=== PATIENT | male | born 1950 | race Caucasian/White ===

== ENCOUNTER 2022-01-13 19:26 | Outpatient (CLI) | payer MEDICARE, BC, SELFPAY | END 2022-01-13 19:27 | disposition home or self-care (01) | LOC: AMB 02-11 15:30 | PROVIDERS: PCP Physician Assistant; Visit Provider Family Medicine | DX: F91.9 Conduct disorder, unspecified (principal) ==

== ENCOUNTER 2022-01-13 19:49 | Emergency (ER) | payer MEDICARE, BC, SELFPAY ==
[2022-01-13 19:59] VITALS: BP 148/73; PULSE 71; RESP 20; TEMP 36.2; O2SAT 96; BMI 26.5
--- NOTE | 2022-01-13 20:19 | CRLHL7_ITS ---
For Patients: As a result of the Century Cures Act, medical imaging exams and procedure reports are released immediately into your electronic medical record. You may view this report before your referring provider. If you have questions, please contact your health care provider. INDICATION: Trauma, fall. TECHNIQUE: CT head without contrast. COMPARISON: None. FINDINGS: CSF spaces: Within normal limits for age. Brain parenchyma: The shi-white differentiation is normal. No sign of mass, hemorrhage, or midline shift. Atherosclerotic calcifications of the cavernous carotids and carotid siphons. Skull base and calvarium: Please refer to separate CT face for facial findings. Mastoid air cells are clear. No skull fractures. IMPRESSION: 1. No acute intracranial abnormality. 2. Please refer to separate CT face for facial findings. Please note that all CT scans at this facility use dose modulation, iterative reconstruction, and/or weight-based dosing when appropriate to reduce radiation dose to as low as reasonably achievable. Dictated by Mata Hollingsworth MD @ 01/13/2022 10:14:04 PM (Electronically Signed)
--- NOTE | 2022-01-13 20:19 | CRLHL7_ITS ---
For Patients: As a result of the Cures Act, medical imaging exams and procedure reports are released immediately into your electronic medical record. You may view this report before your referring provider. If you have questions, please contact your health care provider. INDICATION: Trauma. TECHNIQUE: CT cervical spine without contrast. COMPARISON: None. FINDINGS: Vertebrae: Alignment is normal. There are no fractures or suspicious bony lesions. Discs and facet joints: There are diffuse degenerative changes in the disc spaces and facet joints. Extraspinal findings: Paraspinous soft tissues are unremarkable. IMPRESSION: 1. No sign of acute injury. 2. Multilevel degenerative spondylosis. Please note that all CT scans at this facility use dose modulation, iterative reconstruction, and/or weight-based dosing when appropriate to reduce radiation dose to as low as reasonably achievable. Dictated by Mata Hollingsworth MD @ 01/13/2022 10:28:58 PM (Electronically Signed)
--- NOTE | 2022-01-13 20:19 | CRLHL7_ITS ---
For Patients: As a result of the Cures Act, medical imaging exams and procedure reports are released immediately into your electronic medical record. You may view this report before your referring provider. If you have questions, please contact your health care provider. INDICATION: Facial injury. TECHNIQUE: CT maxillofacial without contrast. COMPARISON: None. FINDINGS: Facial bones: No fractures or bone lesions. Specifically the nasal bones, temporomandibular joints, maxilla and mandible appear intact. Orbits and globes: Bilateral cataract extraction. Globes are intact. No sign of intraorbital hemorrhage or emphysema. Sinuses: No acute or significant findings. Soft tissues: Right malar contusion. IMPRESSION: 1. Right malar contusion. 2. No acute facial fracture. Please note that all CT scans at this facility use dose modulation, iterative reconstruction, and/or weight-based dosing when appropriate to reduce radiation dose to as low as reasonably achievable. Dictated by Mata Hollingsworth MD @ 01/13/2022 10:16:16 PM (Electronically Signed)
--- NOTE | 2022-01-13 20:20 | CRLHL7_ITS ---
For Patients: As a result of the Cures Act, medical imaging exams and procedure reports are released immediately into your electronic medical record. You may view this report before your referring provider. If you have questions, please contact your health care provider. Indication: Trauma. Technique: Bilateral knee radiograph 6 views. Comparison: None. Findings/Impression: Bones: Postsurgical changes of right knee arthroplasty. Mild tricompartmental osteoarthritis of the left knee. Heterotopic calcification about the right knee. Alignment is normal. No fractures or bone lesions. No sign of acute injury. Joint spaces: Unremarkable. Soft tissues: Bilateral popliteal arterial stents with associated calcifications. Dictated by Daniel Flor MD @ 01/13/2022 10:12:48 PM (Electronically Signed)
--- NOTE | 2022-01-13 20:20 | ED_ITS ---
HPI - General Adult General Time Seen by Provider: 20:21 Date Seen: 01/13/22 Chief complaint: Fall/Minor Trauma Stated complaint: Fell and hit head Time Seen by Provider: 01/13/22 20:11 Source: patient, family and old records reviewed Mode of arrival: ambulatory Limitations: no limitations History of Present Illness HPI narrative: 71-year-old male who comes in today with injuries after a fall. Patient tripped and fell at home, denies lightheadedness preceding denies, chest pain or palpitations. Admits to alcohol use today. Complains of knee pain. Related Data Home Medications Medication Instructions Recorded Confirmed aspirin 81 mg capsule 81 mg PO DAILY 01/13/22 01/13/22 hydrochlorothiazide 25 mg tablet 25 mg PO DAILY 01/13/22 01/13/22 nitroglycerin 0.4 mg sublingual 0.4 mg buccal Q5M PRN 01/13/22 01/13/22 tablet omeprazole 20 mg capsule,delayed 20 mg PO DAILY 01/13/22 01/13/22 release rosuvastatin 40 mg tablet 40 mg PO DAILY 01/13/22 01/13/22 vardenafil 20 mg tablet 20 mg PO DAILY PRN 01/13/22 01/13/22 Allergies Allergy/AdvReac Type Severity Reaction Status Date / Time No Known Drug Allergies Allergy Verified 01/13/22 20:05 Review of Systems Status of ROS: Reports: 10 or more systems reviewed and unremarkable except as noted in History and below [facility] Social History Smoking Status: Former smoker Do you use any of these nicotine containing products: None Second hand tobacco smoke exposure: No How often do you have a drink containing alcohol: 4 or more times a week How many standard drinks containing alcohol do you have on a typical day: 1 or 2 How often do you have six or more drinks on one occasion: Never AUDIT-C Alcohol total score: 4 Non-prescribed substance use: denies use Exam Narrative: Exam Narrative: General: Well-developed and well-nourished, no acute distress Head: Atraumatic and normocephalic Eyes: Pupils are equal reactive, extraocular motions intact, conjunctiva clear ENT: External nose and ears are normal, posterior pharynx without erythema or exudate. 8 mm intraoral laceration of the right upper lip, no loose teeth. Neck: No midline cervical tenderness, full spontaneous range of motion the neck, trachea midline, no adenopathy Heart: Regular rate and rhythm no murmurs or thrills Lungs: Clear to auscultation bilaterally without wheezes or crackles Abdomen: Soft, nontender, nondistended with active bowel sounds Musculoskeletal: Bilateral knee abrasions with no effusions Neurologic: Awake, alert, and oriented x3, no gross focal neurologic deficits, cranial nerves intact as tested Psych: Mood and affect are appropriate Skin: No rashes Const: Vital Signs, click to edit/add: Vital Signs - 24 hr 01/13/22 19:59 Temperature 97.2 F L Pulse Rate [Left P ulse Oximeter] 71 Respiratory Rate 20 Blood Pressure [Le ft Upper Arm] 148/73 H Pulse Oximetry 96 Oxygen Delivery Me thod Room Air Documenting provider has reviewed patient's vital signs: yes Course Course Hospital Course: Patient seen examined, prior records are reviewed. Patient presents with a trip and fall today, he has an intraoral laceration of the upper lip with the edges well apposed not through and through, no repair needed. No loose teeth. Patient is intoxicated. Due to intoxication, CT scan of the head and face ordered, as well as cervical although no midline cervical tenderness and full spontaneous range of motion the neck. Also x-rays knees bilaterally but ambulated to the department, fracture unlikely. If scans and x-rays are negative, patient is stable for discharge. Reevaluation(s) Reevaluation #1: CT scan of the head personally reviewed and interpreted by me does not demonstrate any acute fractures. CT scan of the face does not demonstrate any acute fractures. X-rays knees bilaterally do not appear to show acute fractures. Radiology interpretation is pending. Cervical spine CT interpretation pending as well. If these are negative, patient can be discharged home with outpatient follow-up. Reevaluation #2: CT scan interpretation of the head and face negative, cervical is pending but patient clinically has no cervical fracture, knee x-rays negative. Patient stable for discharge. Ambulating in the department without difficulty. Time: 22:18 Vital Signs Vital signs: Initial Vital Signs Temperature 97.2 F L 01/13/22 19:59 Temperature Source Temporal Artery Scan 01/13/22 19:59 Pulse Rate 71 01/13/22 19:59 Respiratory Rate 20 01/13/22 19:59 Blood Pressure 148/73 H 01/13/22 19:59 Blood Pressure Mean 98 01/13/22 19:59 Blood Pressure Position Sitting 01/13/22 19:59 Pulse Oximetry 96 01/13/22 19:59 Oxygen Delivery Method 01/13/22 19:59 Vital Signs Temperature 97.2 F L 01/13/22 19:59 Pulse Rate 71 01/13/22 19:59 Respiratory Rate 20 01/13/22 19:59 Blood Pressure 148/73 H 01/13/22 19:59 Pulse Oximetry 96 01/13/22 19:59 Oxygen Delivery Method 01/13/22 19:59 Temperature 97.2 F L 01/13/22 19:59 Pulse Rate 71 01/13/22 19:59 Respiratory Rate 20 01/13/22 19:59 Blood Pressure 148/73 H 01/13/22 19:59 Pulse Oximetry 96 01/13/22 19:59 Oxygen Delivery Method 01/13/22 19:59 Medical Decision Making Medical Records Medical records reviewed: Yes I reviewed the patient's medical records Lab Data Lab results reviewed: Yes I reviewed the patient's lab results Discharge Plan Discharge Clinical Impression: Alcohol intoxication, Laceration of intraoral surface of lip, Abrasion of knee, bilateral Patient Disposition: Home w/ Parent or Adult Condition: Stable Instructions: Abrasion (ED), Laceration Without Closure (ED) Additional Instructions: Soft diet for 24 hours. Tylenol ibuprofen as needed for pain. Wash abrasions daily with soap and water. Activity Level: Activity as Tolerated Discharge Diet: Regular Prescriptions: No Action hydrochlorothiazide 25 mg tablet 25 mg PO DAILY Label Comments: TAKE 1 TABLET BY MOUTH EVERY DAY nitroglycerin 0.4 mg tablet, sublingual 0.4 mg buccal Q5M PRN Label Comments: PLACE 1 TABLET (0.4 MG) UNDER THE TONGUE EVERY 5 MINUTES IF NEEDED FOR CHEST PAIN. omeprazole 20 mg capsule,delayed release(DR/EC) 20 mg PO DAILY Label Comments: TAKE 1 CAPSULE BY MOUTH ONCE DAILY BEFORE A MEAL. rosuvastatin 40 mg tablet 40 mg PO DAILY Label Comments: TAKE 1 TABLET BY MOUTH EVERYDAY AT BEDTIME vardenafil 20 mg tablet 20 mg PO DAILY PRN Label Comments: TAKE 1 TABLET BY MOUTH ONCE DAILY IF NEEDED FOR ERECTILE DYSFUNCTION. aspirin 81 mg capsule 81 mg PO DAILY Stand Alone Forms: [facility] Info Instructions
== END 2022-01-13 22:24 | disposition home or self-care (01) ==
PROVIDERS: Emergency Provider Family Medicine; PCP Physician Assistant
DX: S01.511A Laceration without foreign body of lip, initial encounter (principal); S80.211A Abrasion, right knee, initial encounter; S80.212A Abrasion, left knee, initial encounter; W01.0XXA Fall on same level from slipping, tripping and stumbling without subsequent striking against object, initial encounter; Y93.9 Activity, unspecified; Y92.019 Unspecified place in single-family (private) house as the place of occurrence of the external cause; Y99.8 Other external cause status; F10.129 Alcohol abuse with intoxication, unspecified
CPT/HCPCS: 70450; 70486; 72125; 73562; 99284

== ENCOUNTER 2022-07-14 13:55 | Outpatient (CLI) | payer MEDICARE, BC, SELFPAY | END 2022-07-14 13:56 | disposition home or self-care (01) | PROVIDERS: PCP Physician Assistant; Visit Provider Nurse Practitioner | DX: C61 Malignant neoplasm of prostate (principal) | CPT/HCPCS: 72195 ==

== ENCOUNTER 2022-07-30 13:40 | Outpatient (CLI) | payer MEDICARE, BC, SELFPAY ==
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
== END 2022-07-30 13:41 | disposition home or self-care (01) ==
LOC: RAD 13:42
PROVIDERS: PCP Physician Assistant; Visit Provider Nurse Practitioner
DX: C61 Malignant neoplasm of prostate (principal)
CPT/HCPCS: 77080

== ENCOUNTER 2023-11-08 12:45 | Outpatient (CLI) | payer MEDICARE, BC, SELFPAY | END 2023-11-08 12:46 | disposition home or self-care (01) | LOC: RAD 12:48 | PROVIDERS: PCP Physician Assistant; Visit Provider Internal Medicine Cardiovascular Disease | DX: I25.10 Atherosclerotic heart disease of native coronary artery without angina pectoris (principal); I51.7 Cardiomegaly | CPT/HCPCS: 93306 ==

== ENCOUNTER 2023-11-09 07:32 | Outpatient (CLI) | payer MEDICARE, BC, SELFPAY ==
[2023-11-09] MEDS: REGADENOSON 0.4 MG/5 ML SYRINGE IVP (09:40)
[2023-11-09] MEDS: SODIUM CHLORIDE 0.9 % (FLUSH) 10 ML SYRINGE IVF (09:40)
[2023-11-09 11:19] VITALS: BP 124/68; PULSE 67
--- NOTE | 2023-11-09 11:29 | W.PM.STED ---
Stress Test Note Date Date Seen: 11/09/23 Date of test: 11/09/23 Providers Referring provider: José Miguel Martin Primary care provider: Jayde Perez Stress test physician: Morenita Goldsmith Stress Test Note Stress test ordered: Lexiscan Indication for test: Chest pain with history of coronary artery disease Stress test medicine: Lexiscan Results discussion: Resting EKG: Sinus bradycardia 57 beats per minute Resting blood pressure: 138/89 Stress test: Patient is consented on stress test ordered and agrees to proceed. Patient had a nonwalking Lexiscan. With the infusion of the regadenoson, patient experienced shortness of breath initially, some later nausea. These symptoms did resolve. Occasional PVC seen but otherwise no arrhythmia. No definitive EKG changes diagnostic of any ischemia. Patient was asymptomatic at the termination of the test. Patient maintained his blood pressure through the test. Patient will have post stress nuclear imaging done to couple this test for full formal diagnostic. Impression: Subjectively he some symptoms of shortness of breath initially, objectively no EKG evidence of any ischemia. Follow up suggested: Patient will be discharged to home after he has his post stress images obtained. He will await results from Cardiology.
== END 2023-11-09 07:33 | disposition home or self-care (01) ==
LOC: STRESS 07:32
PROVIDERS: PCP Physician Assistant; Visit Provider Family Medicine
DX: R07.9 Chest pain, unspecified (principal)
CPT/HCPCS: 78452; 93016; 93017; A9500; J2785

== ENCOUNTER 2024-01-05 15:37 | Outpatient (CLI) | payer OTHER, MEDICARE, BC, SELFPAY ==
--- OUTSIDE RECORDS SUMMARY | 2024-01-07 08:01 | XMS_ITS | Clinical Summary ---
Author Organization [facility] Address [place], [place] [address] Care Team Providers Care Metallurgical Lab Technician Name Role Phone Anette Mancuso Primary Care Provider [phone] Allergies No known active allergies Medications Medication [...] spinal stenosis 07/13/2023 S/P laminectomy 07/13/2023 Other java android developer (current) drug therapy 3 Stenosis of carotid artery 04/12/2023 Old myocardial infarction 04/12/2023 HTN (hypertension) 01/06/2023 Sensorineural hearing loss, bilateral 12/24/2022 Prostate cancer 06/26/2022 Overview (06/26/2022): Nayely 8. Diagnosed [facility]. Atherosclerosis of arteries of extremities 09/09 Obstruction [...] Overview (12/17/2023): LW Modifier: AD sent to [facility] 06/17/09 ; Advanced Directive Issues Counseling Osteoarthritis 08/06/2006 Overview (12/17/2023): DJD Knee joint replacement by other means 07/02/2006 Hyperlipidemia 08/28/2005 PAD (peripheral artery disease) Assessment & Plan (09/11/2022 9:45 AM CDT): Chart update only. WOJCIECH Oropeza .................... 09/11/2022 9:45 AM Encounters Date Type Department Care Team Description 01/05/2024 Orders Only [facility] Scanner 1 scan: (1-Ord) [facility], CERVICAL SPINE, 01/05/2024 01/05/2024 Orders Only [facility] Scanner 1 scan: (1-Ord) [facility], XR HIP LT MIN 2V, 01/05/2024 12/24/2023 7:55 AM CDT Office Visit [facility] [address] [place] [address] Hamilton Ibarra, Medication Management 12/24/2023 Travel 12/17/2023 7:15 AM CDT Phone Office Visit [facility] [address] [place] [address] Katherine Soto DO Phone Visit (No vitals ); Covid-19 Positive Result (Tested positive on 12/15, sxs started 12/14 - congestion, drainage, cough, no fever or SOB ) 12/16/2023 1:00 PM CDT Office Visit [facility] [address] [place] [address] Corie Howe PA URI 12/16/2023 Travel 11/09/2023 8:20 AM CDT Ancillary Procedure [facility] [address] [place] [address] 11/08/2023 3:00 PM CDT Ancillary Procedure [address] [address] 11/03/2023 Telephone [facility] [address] [place] [address] [place] [address] Endy Martin MD Cardiology Appointment 11/02/2023 10:00 AM CDT Office Visit [place] [address] [place] [address] Endy Martin MD Consult (Initial Office Visit /PATIENT HAD A CORONARY ANGIOGRAM IN [place] AND WAS TOLD HE HAD A BLOCKAGE. NEEDS TO ESTABLISH CARE WITH CARDIOLOGY/Recent EKG /PT states feeling ok./States feeling slow. (Back issues)/SOB when walking ) 11/02/2023 Travel 10/27/2023 Refill [facility] [address] [place] [address] Anette Mancuso PA Refill Request (Hydrochlorothiazid e) 10/26/2023 3:30 PM CDT Office Visit [facility] [address] [place] [address] Walter Porter MD CV Vascular Est (6 week follow up: s/p LLE angiogram 09/17/23. US prior to OV.) 10/26/2023 1:44 PM CDT - 10/26/2023 11:59 PM CDT Hospital Encounter [facility] [address] [place] [address] Walter Porter MD Reilly, Chelsey A PAD (peripheral artery disease) (HC) 10/26/2023 Travel 10/23/2023 Travel from Last 3 Months Immunizations Name Administration Dates Next Due COVID-19 vaccine (Auto Secure-Bio NTech 30mcg/0.3mL) 12YO+ BIVALENT PF, MDV 04/23/2022 COVID-19 vaccine (Pfizer-Bio NTech 30mcg/0.3mL) 12YO+ LUCY-SUCROSE PF, MDV 10/11/2021 COVID-19 vaccine (Auto Secure-Bio NTech 30mcg/0.3mL) PF, MDV 02/02/2021,06/19/2020,05/28/2020 Influenza A (H1N1), Inactivated 04/15/2009 Influenza Virus, Unspecified 01/18/2020, 01/10/2019,02/17/2018,2016,01/24/2013,02/10/2012,02/10/2012,1 ,01/24/2011,01/24/2009, 009,02/25/2008,02/25/2008,03/14/2007,,01/24/2007,01/24/2007 Influenza, High-dose Inactivated 03/04/2016,1106/2013,01/24/2013 Influenza, IIV3 (Age >=3 years) 02/07/20 13,01/25/2012,02/17/2011,2009 [...] Info) Description 01/11/2024 10:00 AM CDT Appointment [facility] [address] [place] [address] 01/11/2024 11:30 AM CDT Office Visit [facility] [address] [place] [address] Walter Porter MD [address] Internal zip: [address] [place] [address] 01/12/2024 10:00 AM CDT [facility] [address] [facility] [address] [place] [address] Endy Martin MD [address] [place] [address] [place] [address] 01/17/2024 12:45 PM CDT Office Visit [facility] [address] [place] [address] Anette Mancuso PA [address] [place] [address] Health Maintenance Due Date Last Done Comments RSV vaccine for adults or (1 - 1-dose 60+ series) 2008 COVID-19 vaccine series ( season) 2023 04/23/2022, 10/11/2021, 02/02/2021, Additional history [...] Procedure Name Priority Date/Time Associated Diagnosis Comments SCAN-CT INTERPRETATION 12:00 AM CDT SCAN-RADIOLOGY REPORT 01/05/2024 12:00 AM CDT NM CARDIAC MPI STRESS TEST Routine 11/09/2023 [...] Recently Relevant to Health Maintenance Results * SCAN-RADIOLOGY REPORT (01/05/2024 12:00 AM CDT) Anatomical Region Laterality Modality Other Scanner OTHER * SCAN-CT INTERPRETATION (01/05/2024 12:00 AM CDT) Anatomical Region Laterality Modality Other Scanner OTHER * NM CARDIAC MPI STRESS TEST (11/09/2023 1:08 PM CDT) Anatomical Region Laterality Modality HEART Ultrasound 11/09/2023 8:02 AM CDT Narrative 11/10/2023 11:53 AM CDT ? Toll -free: [phone] ?[employer] ?MYOCARDIAL PERFUSION IMAGING REPORT REST/STRESS SINGLE ISOTOPE GATED SPECT IMAGING. Patient Name: ?? BRANDI [place] TAMI ?Gender: ? M ? Height: ? 68 in Accession #: ?[id number] ?Weight: ? 182 lb Study Date: ? 11/09/2023 8:02:51 AM ? BSA: ?1.96 m? ? ? : ?1950 73 years ? BMI: ?27.67 kg/m? ? ? Ord. Prov.: ? ENDY MARTIN ? Monitoring Prov.: [place], A Performing Site [facility] Clinical History: ?Chest pain, dyspnea and fatigue. Known coronary artery ? disease. Cardiac Risk ? Hypertension and hypercholesterolemia. Factors: Other ?PAD. Symptomatology: Cardiac History: ? [place] 1995. Angiogram. Beta tracy/calcium channel tracy/nitrate taken [...] Emerson Pendleton MD - 11/10/2023 Toll -free: [phone] [employer] MYOCARDIAL PERFUSION IMAGING REPORT REST/STRESS SINGLE ISOTOPE GATED SPECT IMAGING. Patient Name: BRANDI GARRETT Gender: Braxton Height: 68 in Weight: 182 lb Study Date: 11/09/2023 8:02:51 AM BSA: 1.96 m? ? ? : 1950 73 years BMI: 27.67kg/m? ? ? Ord. Prov.: ENDY [facility]A [facility] Monitoring Prov.: Antonio Sam Performing Site [facility] Clinical History: Chest pain, dyspnea and fatigue. Known coronaryartery disease. Cardiac Risk Hypertension and hypercholesterolemia. Factors: Other PAD. Symptomatology: Cardiac History: [place] 1995. Angiogram. Beta tracy/calcium channel tracy/nitrate taken [...] was 138 mmHg/89 mmHg; peak blood pressure [id number] mmHg/76 mmHg. - The patient developed symptoms [...] Narrative 11/08/2023 1:45 PM CDT ECHOCARDIOGRAM BRANDI [place] DORICK ? Accession#: ?? [id number] : ?1950 73 years Study Date: ?? 11/08/2023 1:10:30 PM Gender: M ?BP: ? 128/72 mmHg Height: 170.00 cm ?BSA: ?1.94 m? ? ? Weight: 82.00 kg ? Tech: ? MJS ? Referring MD: ENDY MARTIN Site: ? [facility] Reading Location: Mobile OP Patient Location: Outpatient. [...] was interpreted by an [facility] accredited facility. CC: Med/Surg - IP [facility]. ??Final ?? Procedure Note Justino Anguiano MD - 11/08/2023 ECHOCARDIOGRAM BRANDI VIZCARRAEIESTEPHANIA : 1950 73 years Study Date: 11/08/2023 1:10:30 PM Gender: M BP: 128/72 mmHg Height: 170.00 cm BSA: 1.94 m? ? ? Weight: 82.00 kg Tech: [facility] Referring MD: ENDY MARTIN Site: [facility] Reading Location: Mobile OP Patient [...] IAC accredited facility. CC: Med/Surg - IP [facility]. Final Endy Martin MD ECHO ORD * US ARTERIAL LOWER EXTREMITY W NEEMA BILATERAL (10/26/2023 2:43 PM CDT) Anatomical Region Laterality Modality LEGS Ultrasound 10/26/2023 1:47 PM CDT Narrative 10/27/2023 10:43 AM CDT VASCULAR ULTRASOUND REPORT BRANDI GARRETT Accession#: ?? [id number] : ?1950 ??Study Date: ?? 10/26/2023 1:47:00 PM Age: ?73 years ?? Tech: ? CAR Gender: M ?Referring MD: WALTER PORTER Site: [facility] Study performed: ?Lower extremity duplex US, resting NEEMA, (bilateral). Indication for study: Follow-up CATALOGUE AND SPECIAL PRODUCTS MANAGER/stent/bypass Study Quality: ?Good TECHNIQUE: Lower/upper extremity arteries [...] Phasicity ?? Stenosis Ratio +--------+ + +--------+-----+ LINE INSPECTOR PRX ? 64 ? multiphasic ? +--------+ + +--------+-----+ LINE INSPECTOR DST ? 59 ? multiphasic ? +--------+ + +--------+-----+ PFA ? 40 ? multiphasic ? +--------+ + +--------+-----+ SFA PRX ? 138 ? stenotic ?? 50-74% 2.3 ?? +--------+ + +--------+-----+ MAULIK PRX ? 44 ? multiphasic ? +--------+ + +--------+-----+ MAULIK DST ? 38 ? multiphasic ? +--------+ + +--------+-----+ CATALOGUE AND SPECIAL PRODUCTS MANAGER DST ? 39 ? multiphasic ? +--------+ + +--------+-----+ DPA ? 26 ? multiphasic ? +--------+ + +--------+-----+ +-------+ + + LEFT ?? Velocity cm/s Phasicity ?? +-------+ + + LINE INSPECTOR PRX ? 82 ? multiphasic +-------+ + + LINE INSPECTOR DST ? 134 ? multiphasic +-------+ + + PFA ? 62 ? multiphasic +-------+ + + CATALOGUE AND SPECIAL PRODUCTS MANAGER DST ? 19 ? monophasic +-------+ + [...] ? Index +-----+ +--------+ +-----+ 1.25 ?152 ?CATALOGUE AND SPECIAL PRODUCTS MANAGER ?113 ? 0.93 +-----+ +--------+ +-----+ 0.79 [...] Accreditation Commission (IAC/Vascular), [email or web address] Report generated by [employer]. ??Final ?? Procedure Note Isaac Rudd MD - 10/27/2023 VASCULAR ULTRASOUND REPORT BRANDI [place] TAMI : 1950 Study Date: 10/26/2023 1:47:00 PM Age: 73 years Tech: CAR Gender: M Referring MD: WALTER PORTER Site: [facility] Study performed: Lower extremity duplex US, resting NEEMA,(bilateral). Indication for study: Follow-up CATALOGUE AND SPECIAL PRODUCTS MANAGER/stent/bypass Study Quality: Good TECHNIQUE: Lower/upper extremity arteries [...] cm/s Phasicity Stenosis Ratio +--------+ + +--------+-----+ LINE INSPECTOR PRX 64 multiphasic +--------+ + +--------+-----+ LINE INSPECTOR DST 59 multiphasic +--------+ + +--------+-----+ PFA 40 multiphasic +--------+ + +--------+-----+ SFA PRX 138 stenotic 50-74% 2.3 +--------+ + +--------+-----+ MAULIK PRX 44 multiphasic +--------+ + +--------+-----+ MAULIK DST 38 multiphasic +--------+ + +--------+-----+ CATALOGUE AND SPECIAL PRODUCTS MANAGER DST 39 multiphasic +--------+ + +--------+-----+ DPA 26 multiphasic +--------+ + +--------+-----+ +-------+ + + LEFT Velocity cm/s Phasicity +-------+ + + LINE INSPECTOR PRX 82 multiphasic +-------+ + + LINE INSPECTOR DST 134 multiphasic +-------+ + + PFA 62 multiphasic +-------+ + + CATALOGUE AND SPECIAL PRODUCTS MANAGER DST 19 monophasic +-------+ + + DPA 47 multiphasic +-------+ + + Criteria: Stenosis V. Ratio Mild <50% <2.0 Moderate 50-74% > or = 2.0 Severe 75-99% > or = 4.0 Occluded 100% no detectable flow Pressures +-----+ +--------+ +-----+ RIGHT (mmHg) LEFT (mmHg) +-----+ +--------+ +-----+ Index 118 Brachial 122 Index +-----+ +--------+ +-----+ 1.25 152 CATALOGUE AND SPECIAL PRODUCTS MANAGER 113 0.93 +-----+ +--------+ +-----+ 0.79 96 [...] theIntersocietal Accreditation Commission (IAC/Vascular),[email or web address] Report generated by [employer]. Final Walter Porter MD US * (ABNORMAL) LIPID PANEL W REFLEX MEASURED LDL [[id number]] (01/06/2023 2:47 PM CDT) CHOLESTEROL,TOTAL 174 100 - 199 mg/dL 01/07/2023 6:14 AM CDT [facility] Comment: Cholesterol, Total Reference Ranges Desirable <200 mg/dL Borderline 200-239 mg/dL High >=240 mg/dL TRIGLYCERIDES 194(H) <150 mg/dL 01/07/2023 6:14 AM CDT [facility] HDL CHOLESTEROL 52 >40 mg/dL 6:14 AM CDT [facility] NON-HDL CHOLESTEROL 122 <145 mg/dl 01/07/2023 6:14 AM CDT [facility] CHOL/HDL RATIO 3.35 <4.50 01/07/2023 6:14 AM CDT [facility] LDL CHOLESTEROL 83 <=130 mg/dL 01/07/2023 6:14 AM CDT [facility] VLDL CHOLESTEROL 39(H) <=30 mg/dL 01/07/2023 6:14 AM CDT [facility] PROVIDER ORDERED STATUS RANDOM 01/07/2023 6:14 AM CDT [facility] Blood BLOOD SPECIMEN / Unknown Butterfly / Unknown 01/06/2023 2:47 PM CDT 01/06/2023 2:49 PM CDT Anette JEFFREY CHEMISTRY [facility] [address] [place] [address], * ANTI HCV (12/25/2021 2:47 PM CDT) HEPATITIS C ANTIBODY Non-React tobi Non-React tobi 12/26/2021 3:57 AM CDT [facility] Comment:Antibodies to HCV no t detected; does not exclude the possibility of exposure to HCV. Blood BLOOD SPECIMEN / Unknown Venipuncture / Unknown 12/25/2021 2:47 PM CDT 12/25/2021 2:47 PM CDT Jayde JEFFREY [facility] [address] [place] [address], [place] * COLONOSCOPY (12/23/2015 12:03 PM CDT) 12/23/2015 12:0 3 PM CDT Narrative 12/23/2015 12:03 PM CDT Endoscopy Patient Name: Brandi Garrett ? Procedure Date: 12/23/2015 ? Gender: Male ? Date of : 1950 Admit Type: Ambulatory ? Procedure: ?Colonoscopy Proceduralist: ?Parrish Bhatia MD [facility] Referring MD: ? Kelly Vegas [...] Procedure Code(s): ? --- Professional --- ? 06467, Colonoscopy, flexible; with biopsy, single or multiple Diagnosis Code(s): ? --- Professional --- ? D12.2, Benign neoplasm of ascending colon ? K55.20, Angiodysplasia of colon without hemorrhage ? K92.1, Melena (includes Hematochezia) ? K57.30, Diverticulosis of large intestine without perforation or abscess ? without bleeding ? R93.3, Abnormal findings on diagnostic imaging of other parts of ? digestive tract CPT copyright 2015 [employer]. All rights reserved. The codes documented in this report are preliminary and upon flexographic press set up operator review may be revised to meet current compliance requirements. Procedure Note Parrish Bhatia MD - 12/23/2015 12:39 PM CDT Endoscopy Patient Name: Brandi Garrett Procedure Date: 12/23/2015 Gender: Male Date of : 1950 Admit Type: Ambulatory Procedure: Colonoscopy Proceduralist: Parrish Bhatia MD - [facility] Referring MD: Kelly Vegas NP Indications/Pre-Op Diagnosis: [...] 18 seconds Procedure Code(s): --- Professional --- 39701, Colonoscopy, flexible; with biopsy, single or multiple Diagnosis Code(s): --- Professional --- D12.2, Benign neoplasm of ascending colon K55.20, Angiodysplasia of colon without hemorrhage K92.1, Melena (includes Hematochezia) K57.30, Diverticulosis of large intestine without perforation orabscess without bleeding R93.3, Abnormal findings on diagnostic imaging of other parts of digestive tract CPT copyright 2015 [employer]. All rights reserved. The codes documented in this report are preliminary and upon flexographic press set up operator reviewmay be revised to meet current compliance requirements. Parrish Bhatia MD PROCEDURE ORD from Last 3 Months or Most Recently Relevant to Health Maintenance Advance Directives Documents on File Type Date Recorded Patient Circulation Manager Expl anation Healthcare Directive 08/24/2019 12:00 AM [...] 10:30 AM 02/26/2016 5:11 PM Care Teams Metallurgical Lab Technician Relationship Specialty Start Date End Date Anette Mancuso PA [address] [facility] [address] PCP - General Physician Driver Medic 09/11/22
== END 2024-01-05 15:38 | disposition home or self-care (01) ==
LOC: AMB 01-07 08:00
PROVIDERS: PCP Student in an Organized Health Care Education/Training Program; Visit Provider Family Medicine
DX: S89.92XA Unspecified injury of left lower leg, initial encounter (principal); S59.911A Unspecified injury of right forearm, initial encounter; V09.9XXA Pedestrian injured in unspecified transport accident, initial encounter; Y92.480 Sidewalk as the place of occurrence of the external cause
CPT/HCPCS: A0425; A0429

== ENCOUNTER 2024-01-05 16:03 | Emergency (ER) | payer OTHER, MEDICARE, SELFPAY ==
[2024-01-05 16:14] VITALS: BP 123/69; PULSE 71; RESP 16; TEMP 36; O2SAT 96; BMI 28.1
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
--- NOTE | 2024-01-05 16:21 | CRLHL7_ITS ---
For Patients: As a result of the Century Cures Act, medical imaging exams and procedure reports are released immediately into your electronic medical record. You may view this report before your referring provider. If you have questions, please contact your health care provider. Indication : Trauma. Technique : CT of the brain without intravenous contrast. Comparison: CT head 01/13/2022. Findings: No acute blurring of the shi-white differentiation. There is no intracranial hemorrhage. The ventricles are proportionate to the cerebral sulci. The 4th ventricle is midline. Basal cisterns appear patent. No abnormal extra-axial fluid collection identified. Mild parenchymal volume loss. There is mild patchy periventricular hypodensity, favored to represent chronic ischemic microvascular disease. There is no intracranial mass, mass effect or midline shift identified. No depressed calvarial fracture. Impression: 1. No acute intracranial process. 2. Mild chronic ischemic microvascular disease. Please note that all CT scans at this facility use dose modulation, iterative reconstruction, and/or weight-based dosing when appropriate to reduce radiation dose to as low as reasonably achievable. Dictated by David Fleming MD @ 01/05/2024 5:59:33 PM (Electronically Signed)
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
--- OUTSIDE RECORDS SUMMARY | 2024-01-05 18:07 | XMS_ITS | Clinical Summary ---
Author Organization [facility] [facility] Address [place], [place] [address] Care Team Providers Care Bilingual Case Manager Name Role Phone Anette Mancuso Primary Care Provider [phone] Allergies No known active allergies Medications Medication Sig Dispensed Refills Start Date End Date Status CENTRUM SILVER TAB Take 1 Tablet by mouth once daily. 0 07/02/2006 Active aspirin (ECOTRIN) 81 mg enteric coated tablet Take 1 tablet by mouth once daily. 0 12/06/2013 Active tamsulosin (FLOMAX) 0.4 mg capsule Take 0.8 mg by mouth once daily. 08/10/2022 Active lisinopriL (PRINIVIL; ZESTRIL) 10 mg tablet TAKE 1 TABLET BY MOUTH EVERY DAY FOR 100 DAY 12/30/2022 Active rosuvastatin (CRESTOR) 40 mg tabletIndication s:Coronary artery disease due to calcified coronary lesion Take 1 Tablet (40 mg) by mouth at bedtime. 90 Tablet 3 01/06/2023 Active nitroglycerin (NITROSTAT) 0.4 mg SL tabletIndication s:Coronary artery disease due to calcified coronary lesion Place 1 Tablet (0.4 mg) under the tongue every 5 minutes if needed for Chest Pain. If patient requesting >25 doses in 30D, to provider to authorize 25 Tablet 4 01/06/2023 Active iron,carbonyl-vi tamin C (Vitron-C) 65 mg iron- 125 mg Delayed-Release tabletIndication s:Iron deficiency anemia, unspecified iron deficiency anemia type Take 1 Tablet by mouth once daily. 90 Tablet 3 01/06/2023 Active cyanocobalamin (VITAMIN B12) 1,000 mcg tabletIndication s:B12 deficiency Take 1 Tablet (1,000 mcg) by mouth once daily. 90 Tablet 2 04/06/2023 Active ezetimibe (Zetia) 10 mg tablet Take 10 mg by mouth once daily. Active medication order composer Ca/Zn/Vit D3 Gummy daily Active clopidogreL (PLAVIX) 75 mg tabletIndication s:PAD (peripheral artery disease) (HC) Take 1 Tablet (75 mg) by mouth once daily in the morning. 90 Tablet 3 09/18/2023 Active Graduated Compression StockingsIndicat ions:PAD (peripheral artery disease) (HC) For personal use. Length: calf Strength: 20-30 mmHg Circumference in cm: measure patient at pharmacy 1 Packet 09/27/2023 Active hydroCHLOROthiaz kailee 25 mg tabletIndication s:Coronary artery disease due to calcified coronary lesion TAKE 1 TABLET BY MOUTH EVERY DAY 90 Tablet 10/28/2023 Active naproxen (NAPROSYN) 500 mg tabletIndication s:Degenerative disc disease, lumbar Take 1 Tablet (500 mg) by mouth two times daily with meals. 11/02/2023 Active acetaminophen (TYLENOL EXTRA STRENGTH ORAL) Take 500 mg by mouth once daily. Active omeprazole (PRILOSEC) 20 mg Delayed-Release capsuleIndicatio ns:Gastroesophag eal reflux disease, unspecified whether esophagitis present Take 1 Capsule (20 mg) by mouth once daily before a meal. 90 Capsule 3 11/23/2023 Active ketoconazole 2% shampoo (NIZORAL) 2 % shampoo As directed each time if needed. 4 Discontinue d(*Patient states no longer taking) vardenafiL (LEVITRA) 20 mg tabletIndication s:Erectile dysfunction, unspecified erectile dysfunction type Take 1 Tablet (20 mg) by mouth once daily if needed for Erectile Dysfunction. 12 Tablet 01/06/2023 4 Discontinue d(*Patient states no longer taking) doxycycline monohydrate 100 mg capsuleIndicatio ns:Nasal congestion Take 1 Capsule (100 mg) by mouth two times daily for 10 days. 20 Capsule 12/16/2023 4 Discontinue d(*Med complete/Re gimen complete/Le donald of care change) ranolazine (RANEXA) 500 mg Controlled-Relea se tablet Take 500 mg by mouth. 05/26/2023 4 Discontinue d(*Med complete/Re gimen complete/Le donald of care change) nirmatrelvir-rit onavir 300-100mg (PAXLOVID, EUA,) tabletIndication s:COVID-19 virus infection Take 2 nirmatrelvir 150 mg pink-oval tablets and 1 ritonavir 100 mg white-oval tablet together twice daily for 5 days. 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 Diagnosed [facility]. 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 Prediabetes 09/03/2020 Iron deficiency anemia due to chronic blood loss 09/03/2020 Anemia 08/21/2020 Gastrointestinal hemorrhage 08/21/2020 Personal history of cardiovascular disorder 05/28 ACP (advance care planning) 09/26/2014 Overview (09/26/2014): Patient has identified Health Care Agent(s): Yes Add Health Care Agents: Yes Health Care Agent(s): Primary Health Care Agent: Richelle Whitmorerick Relationship: sister Secondary Health Care Agent: Relationship: Phone: Conservator: Relationship: Phone: Guardian: Relationship: Phone: Patient has Advance Care Plan Documents (Health Care Directive, POLST): Yes Advance Care Plan Documents: Health Care Directive Patient has identified Specific Treatment Preferences: Yes Specific Treatment Preferences: a.) Code Status: CPR/Attempt Resuscitation CAD (coronary artery disease) 10/21/2011 GERD (gastroesophageal reflux disease) 2 Psychosocial stressors 06/17/2009 Overview (12/17/2023): LW Modifier: AD sent to [place] 06/17/09 ; Advanced Directive Issues Counseling Osteoarthritis 08/06/2006 Overview (12/17/2023): DJD Knee joint replacement by other means 07/02/2006 Hyperlipidemia 08/28/2005 PAD (peripheral artery disease) Assessment & Plan (09/11/2022 9:45 AM CDT): Chart update only. WOJCIECH Oropeza .................... 09/11/2022 9:45 AM Encounters Date Type Department Care Team Description 12/24/2023 7:55 AM CDT Office Visit [facility] [address] [place] [address] Hamilton Ibarra, Medication Management 12/24/2023 Travel 12/17/2023 7:15 AM CDT Phone Office Visit [facility] [address] [place] [address] Katherine Soto DO Phone Visit (No vitals ); Covid-19 Positive Result (Tested positive on 12/15, sxs started 12/14 - congestion, drainage, cough, no fever or SOB ) 12/16/2023 1:00 PM CDT Office Visit [facility] [address] [place] [address] Corie Howe PA URI 12/16/2023 Travel 11/09/2023 8:20 AM CDT Ancillary Procedure [facility] [address] [place] [address] 11/08/2023 3:00 PM CDT Ancillary Procedure [facility] [address] [place] [address] 11/03/2023 Telephone [facility] [id number] [place] [address] Endy Martin MD Cardiology Appointment 11/02/2023 10:00 AM CDT Office Visit [place] [facility] [id number] [place] [address] Endy Martin MD Consult (Initial Office Visit /PATIENT HAD A CORONARY ANGIOGRAM IN [place] AND WAS TOLD HE HAD A BLOCKAGE. NEEDS TO ESTABLISH CARE WITH CARDIOLOGY/Recent EKG /PT states feeling ok./States feeling slow. (Back issues)/SOB when walking ) 11/02/2023 Travel 10/27/2023 Refill [facility] [address] [place] [address] Anette Mancuso PA Refill Request (Hydrochlorothiazid e) 10/26/2023 3:30 PM CDT Office Visit [facility] [address] [place] [address] Walter Porter MD CV Vascular Est (6 week follow up: s/p LLE angiogram 09/17/23. US prior to OV.) 10/26/2023 1:44 PM CDT - 10/26/2023 11:59 PM CDT Hospital Encounter [facility] [address] [place] [address] Walter Porter MD Reilly, Chelsey A PAD (peripheral artery disease) (HC) 10/26/2023 Travel 10/23/2023 Travel from Last 3 Months Immunizations Name Administration Dates Next Due COVID-19 vaccine (Pfizer-Bio NTech 30mcg/0.3mL) 12YO+ BIVALENT BERNADINE, MDV 04/23/2022 COVID-19 vaccine (Pfizer-Bio NTech 30mcg/0.3mL) 12YO+ LUCY-SUCROSE PF, MDV 10/11/2021 COVID-19 vaccine ([employer]-Bio NTech 30mcg/0.3mL) PF, MDV 02/02/2021,06/19/2020,05/28/2020 Influenza A (H1N1), Inactivated 04/15/2009 Influenza Virus, Unspecified 01/18/2020, 01/10/2019,02/17/2018,2016,01/24/2013,02/10/2012,02/10/2012,1 ,01/24/2011,01/24/2009, 009,02/25/2008,02/25/2008,03/14/2007,,01/24/2007,01/24/2007 Influenza, High-dose Inactivated 03/04/2016,06/2013,01/24/2013 Influenza, IIV3 (Age >=3 years) 02/07/20 13,01/25/2012,02/17/2011,2009 Influenza, Inactivated AIIV4 (Age 65+ Years) Preserv Free 01/06/2023,02/27/2021 Influenza, Inactivated IIV3 (Age 65+ Years) Preserv Free 12/26/2021,02/29/2020,01/26/2017 Pneumococcal Poly,23-Valent (Pneumovax) 02/26/2014,08/07/2013(Deferred: Patient Refused) Pneumococcal conj 13-Valent (Prevnar 13) 11/19/2015 Pneumococcal, Unspecified 11/19/2015 Td (Age >=7 Years) 07/23/2006,04/25/2006, 006 Td, Preservative Free (age > = 7 Years) 07/23/2006 Tdap 08/11/2016 Zoster (Shingrix-RZV, recombinant) 04/14/2021, Zoster (Zostavax-ZVL, live) 02/22/2013,1 ,08/23/2012(Deferr ed: Patient Refused) Family History Medical History Relation Name Comments Heart Disease Father Hypertension Mother Relation Name Status Comments Father (Age 68) Mother (Age 79) Sister Alive Social History Tobacco Use Types Packs/Day Years Used Date Smoking Tobacco: Former Cigars Q uit: 03/15/2016 Smokeless Tobacco: Never Tobacco Cessation:Counseling Given: Yes Comments:cigar 1/day Alcohol Use Standard Drinks/Week Comments Yes 2 (1 standard drink = 0.6 oz pur e alcohol) PHQ-2 Answer Date Recorded PHQ-2 TOTAL SCORE 0 01/06/2023 Social Connections Answer Date Recorded Frequency of Communication with Friends and Fami ly Not on file 11/02/2023 Financial Resource Strain Answer Date R ecorded Difficulty of Paying Living Expenses 3 10/30/2022 Difficulty of Paying Living Expenses Not on file 10/30/2022 Food Insecurity Answer Date Recorded Worried About Running Out of Food in the Last Ye ar 1 10/30/2022 Transportation Needs Answer Date Record ed Lack of Transportation (Medical) 1 10/30/2022 Housing Stability Answer Date Recorded Unable to Pay for Housing in the Last Year 1 10/30/2022 Sex and Gender Information Value Date Recorded Sex Assigned at Not on file Gender Identity Not on file Sexual Orientation Not on file Travel History Travel Start Travel End Analisa 12/06/2023 12/13/2023 Obstetrics History Last Filed Vital Signs Vital Sign Reading Time Taken Comments Blood Pressure 142/82 12/24/2023 8:06 AM CDT Pulse 63 12/24/2023 8:06 AM CDT Temperature 36.4 ??C (97.6 ??F) 12/24/2023 8:06 AM CD T Respiratory Rate 12 12/16/2023 1:10 PM CDT Oxygen Saturation 98% 12/24/2023 8:06 AM CDT Inhaled Oxygen Concentration - - Weight 83.6 kg (184 lb 4.8 oz) 12/24/2023 8:06 A M CDT Height 171.5 cm (5' 7.5) 11/02/2023 10:07 AM CD T Body Mass Index 28.44 11/02/2023 10:07 AM CDT Plan of Treatment Upcoming Encounters Date Type Department Care Team (Late st Contact Info) Description 01/11/2024 10:00 AM CDT Appointment [facility] [address] [place] [address] 01/11/2024 11:30 AM CDT Office Visit [facility] [address] [place] [address] Walter Porter MD [address] Internal zip: [address] [place] [address] 01/12/2024 10:00 AM CDT Office Visit [facility] [address] [place] [address] Endy Martin MD [address] [place] [address] 01/17/2024 12:45 PM CDT Office Visit [facility] [address] [place] [address] Anette Mancuso PA [address] [place] [address] Health Maintenance Due Date Last Done Comments RSV vaccine for adults or (1 - 1-dose 60+ series) 2008 COVID-19 vaccine series (2022-24 season) 2023 04/23/2022, 10/11/2021, 02/02/2021, Additional history exists Influenza for age 65+ 12/26/2023 01/06/2023 , 12/26/2021, 02/27/2021, Additional history exists Depression screening for age 12+ 01/07/2024 01/06/2023, 01/06/2023, 12/30/2021, Additional history exists Medicare Wellness for age 65+ 01/07/2024, 12/30/2021, 01/26/2017, Additional history exists BMI (ht and wt on same day) for age 18+ 11/01/2024 11/02/2023, 09/15/2023, 09/07/2023, Additional history exists Colonoscopy through age 75 08/23/202508/23 (Verified in Care Everywhere or Patient Record), 12/23/2015, 08/24/2012, Additional history exists Tetanus booster 08/11/2026 08/11/2016, 06/26, 07/23/2006, Additional history exists Lipids for age 45-75 01/07/2028 01/06/2023, 01/26/2017, 11/19/2015, Additional history exists Pneumococcal series for age 65+ Completed 11/19/2015, 11/19/2015, 11/19/2015, Additional history exists Tdap Completed 08/11/2016, 07/23/2006 Zoster (shingles) series for age 50+ Completed 04/14/2021, 12/13/2020, 02/22/2013, Additional history exists Hepatitis C screening for ag e 18-79 Completed 12/25/2021 Procedures Procedure Name Priority Date/Time Associated Diagnosis Comments NM CARDIAC MPI STRESS TEST Routine 11/09/2023 1:08 PM CDT Chest pain ECHO TTE COMPLETE WO CONTRAST Routine 11/08/2023 1:28 PM CDT Arteriosclerotic heart disease US ARTERIAL LOWER EXTREMITY W NEEMA BILATERAL Routine 10/26/2023 2:43 PM CDT PAD (peripheral artery disease) (HC) LIPID PANEL W REFLEX MEASURED LDL Routine 01/06/2023 2:47 PM CDT Coronary artery disease due to calcified coronary lesion PAD (peripheral artery disease) (HC) ANTI HCV Routine 12/25/2021 2:47 PM CDT Need for hepatitis C screening test COLONOSCOPY 12/23/2015 12:03 PM CDT from Last 3 Months or Most Recently Relevant to Health Maintenance Results * NM CARDIAC MPI STRESS TEST (11/09/2023 1:08 PM CDT) Anatomical Region Laterality Modality HEART Ultrasound 11/09/2023 8:02 AM CDT Narrative 11/10/2023 11:53 AM CDT ? Toll -free: [phone] ?[employer] ?MYOCARDIAL PERFUSION IMAGING REPORT REST/STRESS SINGLE ISOTOPE GATED SPECT IMAGING. Patient Name: ?? BRANDI GARRETT ?Gender: ? M ? Height: ? 68 in Accession #: ?[id number] ?Weight: ? 182 lb Study Date: ? 11/09/2023 8:02:51 AM ? BSA: ?1.96 m? ? ? : ?1950 73 years ? BMI: ?27.67 kg/m? ? ? Ord. Prov.: ? ENDY MARTIN ? Monitoring Prov.: Edwardl, A Performing Site [facility] Clinical History: ?Chest pain, dyspnea and fatigue. Known coronary artery ? disease. Cardiac Risk ? Hypertension and hypercholesterolemia. Factors: Other ?PAD. Symptomatology: Cardiac History: ? SC 1996. Angiogram. Beta tracy/calcium channel tracy/nitrate taken today: No. Caffeine/methylxanthine taken within 12 hrs: ?No. Chest pain/discomfort at baseline: ?No. IMPRESSION 1. Myocardial perfusion was abnormal. There was a large partially reversible defect in the basal and mid inferior and inferolateral finch. This is consistent with moderate nontransmural infarction with mild associated ischemia. 2. Overall left ventricular systolic function was abnormal with moderate to severe regional hypokinesis of the basal and mid inferior and inferolateral finch. The post stress LVEF was visually estimated to be 65%. 3. Left ventricular cavity size was normal (resting EDV 92 ml). 4. Compared to prior study of 06/04/23, Prior large inferolateral ischemia has been replaced by non-transmural infarct with extension to basal and mid inferior wall with associated mild melanie-infarct ischemia. 5. See separate report for EKG intrepretation. STRESS MPI PROCEDURE The patient was studied utilizing a same day rest/stress protocol. Myocardial perfusion imaging was performed at rest, 30 minutes following the intravenous injection of 8.7 mCi of 99mTc sestamibi. 30 seconds after the 15 second IV regadenoson injection, the patient was injected via IV with 30.9 mCi of 99mTc sestamibi. Gated post-stress tomographic imaging was performed 30 minutes after stress. After image acquisition was completed, data was reconstructed in short, horizontal long and vertical long axis views and tomographic slices were generated. - Pharmacologic stress testing was performed with an IV regadenoson dose of 0.4 mg. - No low level exercise was performed. - Resting heart rate was 59 bpm, peak heart rate was 91 bpm. - Resting blood pressure was 138 mmHg/89 mmHg; peak blood pressure was 143 mmHg/76 mmHg. - The patient developed symptoms which included shortness of breath and nausea. FINDINGS Imaging - The overall quality of the study was good with severe on rest study. Computerized motion correction was not applied to rest and stress studies. - SPECT images demonstrated a large partially reversible defect in the basal and mid inferior and inferolateral finch. This is consistent with moderate nontransmural infarction with mild associated ischemia. - No other fixed or reversible perfusion defects were identified. - Post stress gated imaging revealed normal left ventricular size with an EDV of 92 ml, ESV of 24 ml and visually estimated LVEF of 65%. (Lab normals: LVEF >50%, LV Size <150 ml). - Gated SPECT imaging demonstrated moderate to severe regional hypokinesis of the basal and mid inferior and inferolateral finch. - No other wall motion abnormalities were identified. - No right ventricular abnormalities were identified. - There was no evidence of abnormal lung or extracardiac activity. - Risk/extent of ischemia per ACC Noninvasive Risk Stratification Guideline: INTERMEDIATE RISK. This study was interpreted and electronically signed by Emerson Pendleton MD on 11/09/2023 1:50:26 PM. ??Final (Updated) ?? Procedure Note Emerson Pendleton MD - 11/10/2023 Toll -free: [phone] [employer] MYOCARDIAL PERFUSION IMAGING REPORT REST/STRESS SINGLE ISOTOPE GATED SPECT IMAGING. Patient Name: BRANDI GARRETT Gender: Braxton Height: 68 in Weight: 182 lb Study Date: 11/09/2023 8:02:51 AM BSA: 1.96 m? ? ? : 1950 73 years BMI: 27.67kg/m? ? ? Ord. Prov.: ENDY OLIVERA [facility] Monitoring Prov.: Antonio Sam Performing Site [facility] Clinical History: Chest pain, dyspnea and fatigue. Known coronaryartery disease. Cardiac Risk Hypertension and hypercholesterolemia. Factors: Other PAD. Symptomatology: Cardiac History: SC 1995. Angiogram. Beta tracy/calcium channel tracy/nitrate taken today: No. Caffeine/methylxanthine taken within 12 hrs: No. Chest pain/discomfort at baseline: No. IMPRESSION 1. Myocardial perfusion was abnormal. There was a large partiallyreversible defect in the basal and mid inferior and inferolateral finch.This is consistent with moderate nontransmural infarction with mildassociated ischemia. 2. Overall left ventricular systolic function was abnormal with moderateto severe regional hypokinesis of the basal and mid inferior andinferolateral finch. The post stress LVEF was visually estimated to be65%. 3. Left ventricular cavity size was normal (resting EDV 92 ml). 4. Compared to prior study of 06/04/23, Prior large inferolateral ischemiahas been replaced by non-transmural infarct with extension to basal andmid inferior wall with associated mild melanie-infarct ischemia. 5. See separate report for EKG intrepretation. STRESS MPI PROCEDURE The patient was studied utilizing a same day rest/stress protocol.Myocardial perfusion imaging was performed at rest, 30 minutes followingthe intravenous injection of 8.7 mCi of 99mTc sestamibi. 30 seconds afterthe 15 second IV regadenoson injection, the patient was injected via IVwith 30.9 mCi of 99mTc sestamibi. Gated post-stress tomographic imagingwas performed 30 minutes after stress. After image acquisition wascompleted, data was reconstructed in short, horizontal long and verticallong axis views and tomographic slices were generated. - Pharmacologic stress testing was performed with an IV regadenoson doseof 0.4 mg. - No low level exercise was performed. - Resting heart rate was 59 bpm, peak heart rate was 91 bpm. - Resting blood pressure was 138 mmHg/89 mmHg; peak blood pressure [id number] mmHg/76 mmHg. - The patient developed symptoms which included shortness of breath andnausea. FINDINGS Imaging - The overall quality of the study was good with severe on rest study. Computerized motion correction was not applied to rest and stressstudies. - SPECT images demonstrated a large partially reversible defect in thebasal and mid inferior and inferolateral finch. This is consistent with moderate nontransmural infarction with mild associated ischemia. - No other fixed or reversible perfusion defects were identified. - Post stress gated imaging revealed normal left ventricular size with anEDV of 92 ml, ESV of 24 ml and visually estimated LVEF of 65%. (Lab normals: LVEF>50%, LV Size <150 ml). - Gated SPECT imaging demonstrated moderate to severe regional hypokinesisof the basal and mid inferior and inferolateral finch. - No other wall motion abnormalities were identified. - No right ventricular abnormalities were identified. - There was no evidence of abnormal lung or extracardiac activity. - Risk/extent of ischemia per ACC Noninvasive Risk StratificationGuideline: INTERMEDIATE RISK. This study was interpreted and electronically signed by Jenni Prado 11/09/2023 1:50:26 PM. Final (Updated) Endy Martin MD NM * ECHO TTE COMPLETE WO CONTRAST (11/08/2023 1:28 PM CDT) AORTIC VALVE MEAN PG 4 mmHg EJECTION FRACTION 61 % PEAK TR VELOCITY 1.8 m/s LVEDD 4.6 cm EJECTION FRACTION 60 - 65% Anatomical Region Laterality Modality Ultrasound 11/08/2023 1:10 PM CDT Narrative 11/08/2023 1:45 PM CDT ECHOCARDIOGRAM BRANDI GARRETT ? Accession#: ?? [id number] : ?1950 73 years Study Date: ?? 11/08/2023 1:10:30 PM Gender: M ?BP: ? 128/72 mmHg Height: 170.00 cm ?BSA: ?1.94 m? ? ? Weight: 82.00 kg ? Tech: ? MJS ? Referring MD: ENDY MARTIN Site: ? [facility] Reading Location: Mobile OP Patient Location: Outpatient. Procedure: 2D, Color Doppler and Spectral Doppler. Indication for study: CAD Cardiac Rhythm: Normal sinus.Study quality: Good. Final Impressions: 1. Normal LV size, mildly increased wall thickness, normal function with an estimated EF of 60 - 65%. 2. Inferior wall and basal posterior segment are abnormal. 3. Right ventricular cavity size is normal, global systolic RV function is normal. 4. Mildly enlarged left atrium. 5. No significant valve disease detected. Comparison There are no prior studies on this patient for comparison purposes. Chamber Sizes and Function Normal left ventricular size, mildly increased wall thickness, normal global systolic function with an estimated EF of 60 - 65%. Left atrial size is mildly enlarged. Right ventricular cavity size is normal, global systolic RV function is normal. The right atrium is normal. The pulmonary artery is of normal size and origin. The sinus of Valsalva is normal sized. The ascending aorta is normal sized. The inferior wall and basal posterior segment are hypokinetic. Valves, RV Pressures and Diastolic Function The aortic valve is normal in structure and trileaflet, no stenosis and no regurgitation. The mitral valve is normal in structure, no mitral regurgitation. Indeterminate pattern of LV diastolic filling. The tricuspid valve is normal in structure. Tricuspid regurgitation is mild regurgitation. The tricuspid regurgitant velocity is 1.8 m/s, the estimated right ventricular systolic pressure is 13 mmHg plus right atrial pressure. The pulmonic valve is normal. No pulmonary regurgitation. TTE images do not appear adequate for transcather intervention with patient supine. Masses, Effusion, Shunts There is no pericardial effusion. The inferior vena cava is normal sized, respiratory size variation greater than 50%. No left to right shunting was detected by limited color flow Doppler interrogation of the interatrial septum. MEASUREMENTS AND CALCULATIONS 2-D Measurements and LV Function: LVID (d) 4.6 cm LV FS% (2D) ?? 41 % LVID (s) 2.7 cm LVOT diameter 2.0 cm IVS (d) ??1.3 cm HR ?47 bpm LVPW (d) 1.0 cm LA Vol index ??39 ml/m2 Ao Sinus 3.6 cm RV Max 4C (d) 3.9 cm Asc Ao ?? 3.2 cm Diastology: Mitral ?Tissue Doppler E Peak 1.0 m/s ??e', Septum ? 0.08 m/s A Peak 1.1 m/s ??e', Lateral ?0.13 m/s E/A ?0.8 ?E/e' Average ?? 9.22 DT ? 263 msec Aortic Valve: Vmax ? 1.5 m/s ??MIGUEL (V) ?? 2.39 cm? ? ? VTI ?0.41 m ?? MIGUEL (I) ?? 2.21 cm? ? ? LVOT V max 1.1 m/s ??Max PG ?9 mmHg LVOT VTI ?? 0.28 m ?? Mean PG ?? 4 mmHg SV ? 92 ml ?Dim Index 0.68 SV index ?? 47 ml/m? ? ? CO ?4.3 l/min ?CI ?2.2 l/min/m? ? ? Mitral Valve: MVA ?2.9 cm? ? ? MV P 1/2 76 msec Tricuspid Valve and estimated PA pressures: TR Vmax 1.8 m/s TAPSE 2.2 cm TR maxG 13 mmHg . This study was interpreted by an [facility] accredited facility. CC: Med/Surg - IP [facility]. ??Final ?? Procedure Note Justino Anguiano MD - 11/08/2023 ECHOCARDIOGRAM BRANDI GARRETT : 1950 73 years Study Date: 11/08/2023 1:10:30 PM Gender: M BP: 128/72 mmHg Height: 170.00 cm BSA: 1.94 m? ? ? Weight: 82.00 kg Tech: Deon Referring MD: ENDY MARTIN Site: [facility] Reading Location: Mobile OP Patient Location: Outpatient. Procedure: 2D, Color Doppler and Spectral Doppler. Indication for study: CAD Cardiac Rhythm: Normal sinus.Study quality: Good. Final Impressions: 1. Normal LV size, mildly increased wall thickness, normal function withan estimated EF of 60 - 65%. 2. Inferior wall and basal posterior segment are abnormal. 3. Right ventricular cavity size is normal, global systolic RV functionis normal. 4. Mildly enlarged left atrium. 5. No significant valve disease detected. Comparison There are no prior studies on this patient for comparison purposes. Chamber Sizes and Function Normal left ventricular size, mildly increased wall thickness, normalglobal systolic function with an estimated EF of 60 - 65%. Left atrialsize is mildly enlarged. Right ventricular cavity size is normal, globalsystolic RV function is normal. The right atrium is normal. The pulmonaryartery is of normal size and origin. The sinus of Valsalva is normalsized. The ascending aorta is normal sized. The inferior wall and basalposterior segment are hypokinetic. Valves, RV Pressures and Diastolic Function The aortic valve is normal in structure and trileaflet, no stenosis and noregurgitation. The mitral valve is normal in structure, no mitralregurgitation. Indeterminate pattern of LV diastolic filling. Thetricuspid valve is normal in structure. Tricuspid regurgitation is mildregurgitation. The tricuspid regurgitant velocity is 1.8 m/s, theestimated right ventricular systolic pressure is 13 mmHg plus right atrialpressure. The pulmonic valve is normal. No pulmonary regurgitation. TTEimages do not appear adequate for transcather intervention with patientsupine. Masses, Effusion, Shunts There is no pericardial effusion. The inferior vena cava is normal sized,respiratory size variation greater than 50%. No left to right shunting wasdetected by limited color flow Doppler interrogation of the interatrialseptum. MEASUREMENTS AND CALCULATIONS 2-D Measurements and LV Function: LVID (d) 4.6 cm LV FS% (2D) 41 % LVID (s) 2.7 cm LVOT diameter 2.0 cm IVS (d) 1.3 cm HR 47 bpm LVPW (d) 1.0 cm LA Vol index 39 ml/m2 Ao Sinus 3.6 cm RV Max 4C (d) 3.9 cm Asc Ao 3.2 cm Diastology: Mitral Tissue Doppler E Peak 1.0 m/s e', Septum 0.08 m/s A Peak 1.1 m/s e', Lateral 0.13 m/s E/A 0.8 E/e' Average 9.22 DT 263 msec Aortic Valve: Vmax 1.5 m/s MIGUEL (V) 2.39 cm? ? ? VTI 0.41 m MIGUEL (I) 2.21 cm? ? ? LVOT V max 1.1 m/s Max PG 9 mmHg LVOT VTI 0.28 m Mean PG 4 mmHg SV 92 ml Dim Index 0.68 SV index 47 ml/m? ? ? CO 4.3 l/min CI 2.2 l/min/m? ? ? Mitral Valve: MVA 2.9 cm? ? ? MV P 1/2 76 msec Tricuspid Valve and estimated PA pressures: TR Vmax 1.8 m/s TAPSE 2.2 cm TR maxG 13 mmHg . This study was interpreted by an [facility] accredited facility. CC: Med/Surg - IP [facility]. Final Endy Martin MD ECHO ORD * US ARTERIAL LOWER EXTREMITY W NEEMA BILATERAL (10/26/2023 2:43 PM CDT) Anatomical Region Laterality Modality LEGS Ultrasound 10/26/2023 1:47 PM CDT Narrative 10/27/2023 10:43 AM CDT VASCULAR ULTRASOUND REPORT BRANDI GARRETT Accession#: ?? [id number] : ?1950 ??Study Date: ?? 10/26/2023 1:47:00 PM Age: ?73 years ?? Tech: ? CAR Gender: M ?Referring MD: WALTER PORTER Site: [facility] V[facility] Center Study performed: ?Lower extremity duplex US, resting NEEMA, (bilateral). Indication for study: Follow-up SENIOR CONSUMER INSIGHTS CONSULTANT/stent/bypass Study Quality: ?Good TECHNIQUE: Lower/upper extremity arteries were examined per exam protocol by duplex ultrasound, color-flow and spectral Doppler. Peak systolic velocities (PSV), Doppler waveform quality, velocity ratios and vessel size in cm, were documented at protocol specific sites. Physiologic data including segmental pressures, ankle/brachial index (NEEMA), digit PPG recordings, laser Doppler flowmetry, transcutaneous oximetry, and digit temperatures were documented at sites per exam protocol and test requirements. IMPRESSION: 1. Resting ankle-brachial index is normal on the right at 1.25 and is normal on the left at 1.07. 2. Evaluation of the lower right extremity shows 50-74% stenosis in the proximal superficial femoral artery. Right SFA stent is patent. 3. Left leg duplex shows multiphasic flow with patent stents in SFA and popliteal artery. COMPARISON: Compared to prior study 01/02/2020, status post angio and left lower extremity stent placement on 09/17/2023. FINDINGS: Bilateral NEEMA normal with right at 1.25 and left 1.07. Right lower extremity multipahsic flow with a patent superficial femoral artery proximal to distal stent. There is a 50-74% stenosis in the superficial femoral artery origin proximal to the stent. Left lower extremity multiphasic flow with monophasic flow in the dorsalis pedis artery. Patent stents throughout superficial femoral artery and in the popiteal artery. +--------+ + +--------+-----+ RIGHT ?? Velocity cm/s Phasicity ?? Stenosis Ratio +--------+ + +--------+-----+ REFRIGERATOR REPAIR TECHNICIAN PRX ? 64 ? multiphasic ? +--------+ + +--------+-----+ REFRIGERATOR REPAIR TECHNICIAN DST ? 59 ? multiphasic ? +--------+ + +--------+-----+ PFA ? 40 ? multiphasic ? +--------+ + +--------+-----+ SFA PRX ? 138 ? stenotic ?? 50-74% 2.3 ?? +--------+ + +--------+-----+ MAULIK PRX ? 44 ? multiphasic ? +--------+ + +--------+-----+ MAULIK DST ? 38 ? multiphasic ? +--------+ + +--------+-----+ SENIOR CONSUMER INSIGHTS CONSULTANT DST ? 39 ? multiphasic ? +--------+ + +--------+-----+ DPA ? 26 ? multiphasic ? +--------+ + +--------+-----+ +-------+ + + LEFT ?? Velocity cm/s Phasicity ?? +-------+ + + REFRIGERATOR REPAIR TECHNICIAN PRX ? 82 ? multiphasic +-------+ + + REFRIGERATOR REPAIR TECHNICIAN DST ? 134 ? multiphasic +-------+ + + PFA ? 62 ? multiphasic +-------+ + + SENIOR CONSUMER INSIGHTS CONSULTANT DST ? 19 ? monophasic +-------+ + + DPA ? 47 ? multiphasic +-------+ + + Criteria: Stenosis ?V. Ratio Mild ?<50% ?<2.0 Moderate ?? 50-74% ?> or = 2.0 Severe ? 75-99% ?> or = 4.0 Occluded ?100% ?? no detectable flow Pressures +-----+ +--------+ +-----+ ? RIGHT (mmHg) ? LEFT (mmHg) ? +-----+ +--------+ +-----+ Index ?118 ? Brachial ?122 ? Index +-----+ +--------+ +-----+ 1.25 ?152 ?SENIOR CONSUMER INSIGHTS CONSULTANT ?113 ? 0.93 +-----+ +--------+ +-----+ 0.79 ? 96 ?DPA ?130 ? 1.07 +-----+ +--------+ +-----+ STENT Stent Location Right: SFA proximal to distal. + + + +--------+-----+ RIGHT ? Velocity cm/s Phasicity ?? Stenosis Ratio + + + +--------+-----+ PRE Stent ? 138 ? multiphasic ? + + + +--------+-----+ PRX Stent Edge ? 57 ? multiphasic ? + + + +--------+-----+ PRX Stent ? 88 ? multiphasic ? + + + +--------+-----+ MID Stent ? 99 ? multiphasic ? + + + +--------+-----+ DST Stent ? 136 ? multiphasic ? + + + +--------+-----+ DST Stent Edge ? 107 ? multiphasic ? + + + +--------+-----+ POST Stent ? 94 ? multiphasic ? + + + +--------+-----+ Stent Location Left: SFA proximal to mid. + + + +--------+-----+ LEFT ? Velocity cm/s Phasicity ?? Stenosis Ratio + + + +--------+-----+ PRE Stent ? 128 ? multiphasic ? + + + +--------+-----+ PRX Stent Edge ? 122 ? multiphasic ? + + + +--------+-----+ PRX Stent ? 111 ? multiphasic ? + + + +--------+-----+ MID Stent ? 99 ? multiphasic ? + + + +--------+-----+ DST Stent ? 105 ? multiphasic ? + + + +--------+-----+ DST Stent Edge ? 101 ? multiphasic ? + + + +--------+-----+ POST Stent ? 112 ? multiphasic ? + + + +--------+-----+ Stent Location Left #2: SFA mid to distal. + + + +--------+-----+ LEFT ? Velocity (cm/s) Phasicity ?? Stenosis Ratio + + + +--------+-----+ PRE Stent ?78 ? multiphasic ? + + + +--------+-----+ PRX Stent Edge ?90 ? multiphasic ? + + + +--------+-----+ PRX Stent ?113 ? multiphasic ? + + + +--------+-----+ MID Stent ?112 ? multiphasic ? + + + +--------+-----+ DST Stent ?95 ? multiphasic ? + + + +--------+-----+ DST Stent Edge ?92 ? multiphasic ? + + + +--------+-----+ POST Stent ?111 ? multiphasic ? + + + +--------+-----+ Stent Location Left #3: SFA distal to popliteal artery distal. + + + +--------+-----+ LEFT ? Velocity (cm/s) Phasicity ?? Stenosis Ratio + + + +--------+-----+ PRE Stent ?111 ? multiphasic ? + + + +--------+-----+ PRX Stent Edge ?76 ? multiphasic ? + + + +--------+-----+ PRX Stent ?107 ? multiphasic ? + + + +--------+-----+ MID Stent ?106 ? multiphasic ? + + + +--------+-----+ DST Stent ?102 ? multiphasic ? + + + +--------+-----+ DST Stent Edge ?92 ? multiphasic ? + + + +--------+-----+ POST Stent ?78 ? multiphasic ? + + + +--------+-----+ Isaac Rudd MD. Electronically signed on 10/27/2023 10:43:27 AM This study was performed and interpreted by a service accredited by the [employer]reditation Commission (IAC/Vascular), [email or web address] Report generated by [employer]. ??Final ?? Procedure Note Isaac Rudd MD - 10/27/2023 VASCULAR ULTRASOUND REPORT BRANDI GARRETT : 1950 Study Date: 10/26/2023 1:47:00 PM Age: 73 years Tech: CAR Gender: M Referring MD: WALTER PORTER Site: [facility] Vascular Center Study performed: Lower extremity duplex US, resting NEEMA,(bilateral). Indication for study: Follow-up SENIOR CONSUMER INSIGHTS CONSULTANT/stent/bypass Study Quality: Good TECHNIQUE: Lower/upper extremity arteries were examined per exam protocol by duplexultrasound, color-flow and spectral Doppler. Peak systolic velocities(PSV), Doppler waveform quality, velocity ratios and vessel size in cm,were documented at protocol specific sites. Physiologic data includingsegmental pressures, ankle/brachial index (NEEMA), digit PPG recordings,laser Doppler flowmetry, transcutaneous oximetry, and digit temperatureswere documented at sites per exam protocol and test requirements. IMPRESSION: 1. Resting ankle-brachial index is normal on the right at 1.25 and isnormal on the left at 1.07. 2. Evaluation of the lower right extremity shows 50-74% stenosis in theproximal superficial femoral artery. Right SFA stent is patent. 3. Left leg duplex shows multiphasic flow with patent stents in SFA andpopliteal artery. COMPARISON: Compared to prior study 01/02/2020, status post angio and left lowerextremity stent placement on 09/17/2023. FINDINGS: Bilateral NEEMA normal with right at 1.25 and left 1.07. Right lower extremity multipahsic flow with a patent superficial femoralartery proximal to distal stent. There is a 50-74% stenosis in thesuperficial femoral artery origin proximal to the stent. Left lower extremity multiphasic flow with monophasic flow in the dorsalispedis artery. Patent stents throughout superficial femoral artery and inthe popiteal artery. +--------+ + +--------+-----+ RIGHT Velocity cm/s Phasicity Stenosis Ratio +--------+ + +--------+-----+ REFRIGERATOR REPAIR TECHNICIAN PRX 64 multiphasic +--------+ + +--------+-----+ REFRIGERATOR REPAIR TECHNICIAN DST 59 multiphasic +--------+ + +--------+-----+ PFA 40 multiphasic +--------+ + +--------+-----+ SFA PRX 138 stenotic 50-74% 2.3 +--------+ + +--------+-----+ MAULIK PRX 44 multiphasic +--------+ + +--------+-----+ MAULIK DST 38 multiphasic +--------+ + +--------+-----+ SENIOR CONSUMER INSIGHTS CONSULTANT DST 39 multiphasic +--------+ + +--------+-----+ DPA 26 multiphasic +--------+ + +--------+-----+ +-------+ + + LEFT Velocity cm/s Phasicity +-------+ + + REFRIGERATOR REPAIR TECHNICIAN PRX 82 multiphasic +-------+ + + REFRIGERATOR REPAIR TECHNICIAN DST 134 multiphasic +-------+ + + PFA 62 multiphasic +-------+ + + SENIOR CONSUMER INSIGHTS CONSULTANT DST 19 monophasic +-------+ + + DPA 47 multiphasic +-------+ + + Criteria: Stenosis V. Ratio Mild <50% <2.0 Moderate 50-74% > or = 2.0 Severe 75-99% > or = 4.0 Occluded 100% no detectable flow Pressures +-----+ +--------+ +-----+ RIGHT (mmHg) LEFT (mmHg) +-----+ +--------+ +-----+ Index 118 Brachial 122 Index +-----+ +--------+ +-----+ 1.25 152 SENIOR CONSUMER INSIGHTS CONSULTANT 113 0.93 +-----+ +--------+ +-----+ 0.79 96 DPA 130 1.07 +-----+ +--------+ +-----+ STENT Stent Location Right: SFA proximal to distal. + + + +--------+-----+ RIGHT Velocity cm/s Phasicity Stenosis Ratio + + + +--------+-----+ PRE Stent 138 multiphasic + + + +--------+-----+ PRX Stent Edge 57 multiphasic + + + +--------+-----+ PRX Stent 88 multiphasic + + + +--------+-----+ MID Stent 99 multiphasic + + + +--------+-----+ DST Stent 136 multiphasic + + + +--------+-----+ DST Stent Edge 107 multiphasic + + + +--------+-----+ POST Stent 94 multiphasic + + + +--------+-----+ Stent Location Left: SFA proximal to mid. + + + +--------+-----+ LEFT Velocity cm/s Phasicity Stenosis Ratio + + + +--------+-----+ PRE Stent 128 multiphasic + + + +--------+-----+ PRX Stent Edge 122 multiphasic + + + +--------+-----+ PRX Stent 111 multiphasic + + + +--------+-----+ MID Stent 99 multiphasic + + + +--------+-----+ DST Stent 105 multiphasic + + + +--------+-----+ DST Stent Edge 101 multiphasic + + + +--------+-----+ POST Stent 112 multiphasic + + + +--------+-----+ Stent Location Left #2: SFA mid to distal. + + + +--------+-----+ LEFT Velocity (cm/s) Phasicity Stenosis Ratio + + + +--------+-----+ PRE Stent 78 multiphasic + + + +--------+-----+ PRX Stent Edge 90 multiphasic + + + +--------+-----+ PRX Stent 113 multiphasic + + + +--------+-----+ MID Stent 112 multiphasic + + + +--------+-----+ DST Stent 95 multiphasic + + + +--------+-----+ DST Stent Edge 92 multiphasic + + + +--------+-----+ POST Stent 111 multiphasic + + + +--------+-----+ Stent Location Left #3: SFA distal to popliteal artery distal. + + + +--------+-----+ LEFT Velocity (cm/s) Phasicity Stenosis Ratio + + + +--------+-----+ PRE Stent 111 multiphasic + + + +--------+-----+ PRX Stent Edge 76 multiphasic + + + +--------+-----+ PRX Stent 107 multiphasic + + + +--------+-----+ MID Stent 106 multiphasic + + + +--------+-----+ DST Stent 102 multiphasic + + + +--------+-----+ DST Stent Edge 92 multiphasic + + + +--------+-----+ POST Stent 78 multiphasic + + + +--------+-----+ Isaac Rudd MD. Electronically signed on 10/27/2023 10:43:27 AM This study was performed and interpreted by a service accredited by theIntersocietal Accreditation Commission (IAC/Vascular),[email or web address] Report generated by [employer]. Final Walter Porter MD US * (ABNORMAL) LIPID PANEL W REFLEX MEASURED LDL [[id number]] (01/06/2023 2:47 PM CDT) Pathologist [facility] [place] CHOLESTEROL,TOTAL 174 100 - 199 mg/dL 01/07/2023 6:14 AM CDT [facility] [employer] [facility] Comment: Cholesterol, Total Reference Ranges Desirable <200 mg/dL Borderline 200-239 mg/dL High >=240 mg/dL TRIGLYCERIDES 194(H) <150 mg/dL 01/07/2023 6:[address] [facility] HDL CHOLESTEROL 52 >40 mg/dL 6:14 AM CDT [facility] NON-HDL CHOLESTEROL 122 <145 mg/dl 01/07/2023 6:14 AM CDT [facility] CHOL/HDL RATIO 3.35 <4.50 01/07/2023 6:14 AM CDT [facility] LDL CHOLESTEROL 83 <=130 mg/dL 01/07/2023 6:14 AM CDT [facility] VLDL CHOLESTEROL 39(H) <=30 mg/dL 01/07/2023 6:14 AM CDT [facility] PROVIDER ORDERED STATUS RANDOM 01/07/2023 6:14 AM CDT [facility] Blood BLOOD SPECIMEN / Unknown Butterfly / Unknown 01/06/2023 2:47 PM CDT 01/06/2023 2:49 PM CDT Anette JEFFREY CHEMISTRY [facility] [address] [place] [address], [place] * ANTI HCV (12/25/2021 2:47 PM CDT) HEPATITIS C ANTIBODY Non-React tobi Non-React tobi 12/26/2021 3:57 AM CDT [facility] Comment:Antibodies to HCV no t detected; does not exclude the possibility of exposure to HCV. Blood BLOOD SPECIMEN / Unknown Venipuncture / Unknown 12/25/2021 2:47 PM CDT 12/25/2021 2:47 PM CDT Jayde JEFFREY SEND OUTS [facility] [address] [place] [address], [place] * COLONOSCOPY (12/23/2015 12:03 PM CDT) 12/23/2015 12:0 3 PM CDT Narrative 12/23/2015 12:03 PM CDT Endoscopy Patient Name: Brandi Garrett ? Procedure Date: 12/23/2015 ? Gender: Male ? Date of : 1950 Admit Type: Ambulatory ? Procedure: ?Colonoscopy Proceduralist: ?Parrish Bhatia MD - [facility] Referring MD: ? Kelly Vegas NP Indications/Pre-Op Diagnosis: Hematochezia, Abnormal CT of the GI tract Medications: ?Monitored Anesthesia Care ? Procedure Description: ? The patient had risks, benefits and alternatives explained to and gave ? informed consent. The patient had a stable cardiopulmonary status and ? judged an adequate candidate for conscious sedation. ? The endoscope was passed through the anus and advanced to the terminal ? ileum, with identification of the appendiceal orifice and IC valve. The ? colonoscopy was performed without difficulty. The patient tolerated the ? procedure well. The quality of the bowel preparation was excellent. ? Complications: ?No immediate complications. Estimated Blood Loss & Specimen: ? Estimated blood loss: none. ? Findings: ? The perianal and digital rectal examinations were normal. ? Three sessile polyps were found in the ascending colon. The polyps were ? 1 to 3 mm in size. These polyps were removed with a cold biopsy forceps. ? Resection and retrieval were complete. ? A single angioectasia without bleeding was found in the ascending colon. ? Multiple small and large-mouthed diverticula were found in the sigmoid ? colon. ? The terminal ileum appeared normal. ? Impressions/Post-Op Diagnosis: ? - Three 1 to 3 mm polyps in the ascending colon, removed with a cold ? biopsy forceps. Resected and retrieved. ? - A single non-bleeding colonic angioectasia. ? - Diverticulosis in the sigmoid colon. ? - The examined portion of the ileum was normal. ? Recommendation: ? - Await pathology results. ? - Repeat colonoscopy in 5-10 years for surveillance based on pathology ? results. ? Parrish Bhatia MD 12/23/2015 12:39:41 PM This report has been signed electronically. Note Initiated On: 12/23/2015 12:03 PM Total Procedure Duration Time 0 hours 21 minutes 0 seconds Scope Withdrawal Time 0 hours 14 minutes 18 seconds Procedure Code(s): ? --- Professional --- ? 37396, Colonoscopy, flexible; with biopsy, single or multiple Diagnosis Code(s): ? --- Professional --- ? D12.2, Benign neoplasm of ascending colon ? K55.20, Angiodysplasia of colon without hemorrhage ? K92.1, Melena (includes Hematochezia) ? K57.30, Diverticulosis of large intestine without perforation or abscess ? without bleeding ? R93.3, Abnormal findings on diagnostic imaging of other parts of ? digestive tract CPT copyright 2015 [employer]. All rights reserved. The codes documented in this report are preliminary and upon liquor stores and agencies supervisor review may be revised to meet current compliance requirements. Procedure Note Parrish Bhatia MD - 12/23/2015 12:39 PM CDT Endoscopy Patient Name: Brandi Garrett Procedure Date: 12/23/2015 Gender: Male Date of : 1950 Admit Type: Ambulatory Procedure: Colonoscopy Proceduralist: Parrish Bhatia MD - [facility] Referring MD: Kelly Vegas NP Indications/Pre-Op Diagnosis: Hematochezia, Abnormal CT of the GI tract Medications: Monitored Anesthesia Care Procedure Description: The patient had risks, benefits and alternatives explained to andgave informed consent. The patient had a stable cardiopulmonary status and judged an adequate candidate for conscious sedation. The endoscope was passed through the anus and advanced to theterminal ileum, with identification of the appendiceal orifice and IC valve.The colonoscopy was performed without difficulty. The patient toleratedthe procedure well. The quality of the bowel preparation was excellent. Complications: No immediate complications. Estimated Blood Loss & Specimen: Estimated blood loss: none. Findings: The perianal and digital rectal examinations were normal. Three sessile polyps were found in the ascending colon. The polypswere 1 to 3 mm in size. These polyps were removed with a cold biopsyforceps. Resection and retrieval were complete. A single angioectasia without bleeding was found in the ascendingcolon. Multiple small and large-mouthed diverticula were found in thesigmoid colon. The terminal ileum appeared normal. Impressions/Post-Op Diagnosis: - Three 1 to 3 mm polyps in the ascending colon, removed with a cold biopsy forceps. Resected and retrieved. - A single non-bleeding colonic angioectasia. - Diverticulosis in the sigmoid colon. - The examined portion of the ileum was normal. Recommendation: - Await pathology results. - Repeat colonoscopy in 5-10 years for surveillance based onpathology results. Parrish Bhatia MD 12/23/2015 12:39:41 PM This report has been signed electronically. Note Initiated On: 12/23/2015 12:03 PM Total Procedure Duration Time 0 hours 21 minutes 0 seconds Scope Withdrawal Time 0 hours 14 minutes 18 seconds Procedure Code(s): --- Professional --- 05449, Colonoscopy, flexible; with biopsy, single or multiple Diagnosis Code(s): --- Professional --- D12.2, Benign neoplasm of ascending colon K55.20, Angiodysplasia of colon without hemorrhage K92.1, Melena (includes Hematochezia) K57.30, Diverticulosis of large intestine without perforation orabscess without bleeding R93.3, Abnormal findings on diagnostic imaging of other parts of digestive tract CPT copyright 2015 [employer]. All rights reserved. The codes documented in this report are preliminary and upon liquor stores and agencies supervisor reviewmay be revised to meet current compliance requirements. Parrish Bhatia MD PROCEDURE ORD from Last 3 Months or Most Recently Relevant to Health Maintenance Advance Directives Documents on File Type Date Recorded Patient French Binder Expl anation Healthcare Directive 08/24/2019 12:00 AM * Full Code (Latest Code Status on File) Date Activated Date Inactivated Comments 09/18/2023 11:37 AM 09/18/2023 4:08 PM Question Answer Comments Code Status Discussion: Reviewed Preferences * Full Code Date Activated Date Inactivated Comments 09/17/2023 11:53 AM 09/18/2023 11:37 AM Question Answer Comments Code Status Discussion: Unable to Assess Preferences, Provider to review later * Full Code Date Activated Date Inactivated Comments 04/02/2016 12:38 PM 04/02/2016 10:15 PM * Full Code Date Activated Date Inactivated Comments 02/26/2016 5:11 PM 02/26/2016 9:34 PM * Full Code Date Activated Date Inactivated Comments 02/26/2016 10:30 AM 02/26/2016 5:11 PM Care Teams Bilingual Case Manager Relationship Specialty Start Date End Date Anette Mancuso PA [address] [place] [address] PCP - General Physician Poultry Picking Machine Tender 09/11/22
== END 2024-01-05 18:39 | disposition home or self-care (01) ==
PROVIDERS: Emergency Provider Student in an Organized Health Care Education/Training Program; PCP Student in an Organized Health Care Education/Training Program
DX: M25.552 Pain in left hip (principal); V03.90XA Pedestrian on foot injured in collision with car, pick-up truck or van, unspecified whether traffic or nontraffic accident, initial encounter; M79.631 Pain in right forearm
CPT/HCPCS: 70450; 72125; 73090; 73502; 99283; 99284; 99291; G0390

== ENCOUNTER 2025-02-07 16:19 | Emergency (ER) | payer MEDICARE, BC, SELFPAY ==
--- OUTSIDE RECORDS SUMMARY | 2025-02-07 16:22 | XMS_ITS | Clinical Summary ---
Author Organization [employer] Address [facility] [place] [address] Care Team Providers Care Metropolitan Editor Name Role Phone Anette Mancuso Primary Care Provider [phone] Carol Dubon NP Unavailable Madonna Solis MD Unavailable [phone] Allergies No known active allergies Medications * This document contains information received from the source organization and may not represent a complete record from that organization. aspirin (ECOTRIN) 81 mg enteric coated tablet Take 1 tablet by mouth once daily. 0 12/07/19 14 Active tamsulosin (FLOMAX) 0.4 mg capsule Take 0.8 mg by mouth once daily. 08/11/19 23 Active clopidogreL 75 mg tabletIndicatio ns:PAD (peripheral artery disease) Take 1 Tablet (75 mg) by mouth once daily in the morning. 90 Tablet 1 09/06/19 25 Active cyanocobalamin (VITAMIN B12) 1,000 mcg tabletIndicatio ns:B12 deficiency Take 1 Tablet (1,000 mcg) by mouth every other day. 45 Tablet 3 01/20/20 25 Active ezetimibe (Zetia) 10 mg tabletIndicatio ns:Coronary artery disease due to calcified coronary lesion,PAD (peripheral artery disease) Take 1 Tablet (10 mg) by mouth once daily. 90 Tablet 01/20/20 Active hydroCHLOROthia zide 25 mg tabletIndicatio ns:Coronary artery disease due to calcified coronary lesion Take 1 Tablet (25 mg) by mouth once daily. 90 Tablet 01/20/20 25 Active lisinopriL (PRINIVIL; ZESTRIL) 10 mg tabletIndicatio ns:HTN (hypertension) Take 1 Tablet (10 mg) by mouth once daily. 90 Tablet 01/20/20 Active nitroglycerin (NITROSTAT) 0.4 mg sublingual tabletIndicatio ns:Coronary artery disease due to calcified coronary lesion Place 1 Tablet (0.4 mg) under the tongue every 5 minutes if needed for Chest Pain. If patient requesting >25 doses in 30D, to provider to authorize 25 Tablet 01/20/20 Active rosuvastatin (CRESTOR) 40 mg tabletIndicatio ns:Coronary artery disease due to calcified coronary lesion Take 1 Tablet (40 mg) by mouth at bedtime. 90 Tablet 01/20/20 Active iron,carbonyl-v itamin C (Vitron-C) 65 mg iron- 125 mg Delayed-Release tabletIndicatio ns:Anemia of chronic disease Take 1 Tablet by mouth once daily. 90 Tablet 01/20/20 Active gabapentin (NEURONTIN) 100 mg capsuleIndicati ons:Peripheral sensory neuropathy Take 2 capsules (200 mg) by mouth TID. 270 Capsule 01/20/20 Active Additional Information Patient taking differently: 200 mg Oral TID, (No instructions reported), Reported on 02/02/2025 multivitamins-m inerals-lutein (Multivitamin 50 Plus) tab tablet Take 1 Tablet by mouth once daily. Active omeprazole 20 mg tablet Take 20 mg by mouth once daily. Active calcium carbonate (OS-DILCIA 500) 500 mg calcium (1,250 mg) tablet Take 500 mg by mouth two times daily with meals. Active acetaminophen (TYLENOL EXTRA STRGTH) 500 mg tabletIndicatio ns:Post-op pain Take 2 Tablets (1,000 mg) by mouth every 6 hours if needed for Pain. Max acetaminophen dose: 4000mg in 24 hrs. 02/06/20 Active methocarbamoL 500 mg tabletIndicatio ns:Post-op pain Take 1 Tablet (500 mg) by mouth every 6 hours if needed for Muscle Spasm for up to 7 days. 20 Tablet 5 1:45 PM CDT 02/06/20 25 2024 Active oxyCODONE (ROXICODONE) 5 mg immediate release tabletIndicatio ns:Post-op pain Take 1 Tablet (5 mg) by mouth every 6 hours if needed for Pain. 15 Tablet 5 1:45 PM CDT 02/06/20 25 2024 Active polyethylene glycol (MIRALAX; GLYCOLAX) 17 g per packet packetIndicatio ns:Constipation , unspecified constipation type Mix 17 g (1 Packet) in liquid then take by mouth once daily if needed for Constipation. 02/06/20 25 Active sennosides-docu sate (SENOKOT S) (8.6-50 mg) tabletIndicatio ns:Constipation , unspecified constipation type Take 2 Tablets by mouth 2 times daily if needed for Constipation. 02/06/20 25 Active CENTRUM SILVER TAB Take 1 Tablet by mouth once daily. 0 07/03/19 07 2024 Discontinued (Pharmacist change per medication history (E-cancel not sent)) Graduated Compression StockingsIndica tions:PAD (peripheral artery disease) For personal use. Length: calf Strength: 20-30 mmHg Circumference in cm: measure patient at pharmacy 1 Packet 09/27/19 24 2024 Discontinued (Pharmacist change per medication history (E-cancel not sent)) acetaminophen (TYLENOL EXTRA STRENGTH ORAL) Take 500 mg by mouth once daily. 2024 Discontinued (Pharmacist change per medication history (E-cancel not sent)) gabapentin (NEURONTIN) 100 mg capsuleIndicati ons:PAD (peripheral artery disease) Take 1 Capsule (100 mg) by mouth three times daily. 180 Capsule 5 01/11/20 24 2024 Discontinued (Reorder (E-cancel not sent)) cyanocobalamin (VITAMIN B12) 1,000 mcg tabletIndicatio ns:B12 deficiency Take 1 Tablet (1,000 mcg) by mouth once daily. 90 Tablet 3 01/17/20 24 2024 Discontinued (Reorder (E-cancel not sent)) hydroCHLOROthia zide 25 mg tabletIndicatio ns:Coronary artery disease due to calcified coronary lesion Take 1 Tablet (25 mg) by mouth once daily. 90 Tablet 3 01/17/202024 Discontinued (Reorder (E-cancel not sent)) iron,carbonyl-v itamin C (Vitron-C) 65 mg iron- 125 mg Delayed-Release tabletIndicatio ns:Iron deficiency anemia, unspecified iron deficiency anemia type Take 1 Tablet by mouth once daily. 90 Tablet 3 01/17/202024 Discontinued (Reorder (E-cancel not sent)) nitroglycerin (NITROSTAT) 0.4 mg sublingual tabletIndicatio ns:Coronary artery disease due to calcified coronary lesion Place 1 Tablet (0.4 mg) under the tongue every 5 minutes if needed for Chest Pain. If patient requesting >25 doses in 30D, to provider to authorize 25 Tablet 4 01/17/20 24 2024 Discontinued (Reorder (E-cancel not sent)) rosuvastatin (CRESTOR) 40 mg tabletIndicatio ns:Coronary artery disease due to calcified coronary lesion Take 1 Tablet (40 mg) by mouth at bedtime. 90 Tablet 3 01/17/20 24 2024 Discontinued (Reorder (E-cancel not sent)) ezetimibe (Zetia) 10 mg tabletIndicatio ns:Coronary artery disease due to calcified coronary lesion,PAD (peripheral artery disease) Take 1 Tablet (10 mg) by mouth once daily. 90 Tablet 3 01/17/202024 Discontinued (Reorder (E-cancel not sent)) lisinopriL (PRINIVIL; ZESTRIL) 10 mg tabletIndicatio ns:HTN (hypertension) Take 1 Tablet (10 mg) by mouth once daily. 90 Tablet 3 01/17/202024 Discontinued (Reorder (E-cancel not sent)) celecoxib 200 mg capsule Take 200 mg by mouth once daily with a meal. 10/04/19 25 2024 Discontinued (Pharmacist change per medication history (E-cancel not sent)) pantoprazole (PROTONIX) 40 mg delayed-release tablet Take 40 mg by mouth once daily. 2024 Discontinued (Pharmacist change per medication history (E-cancel not sent)) oxyCODONE (ROXICODONE) 5 mg immediate release tablet TAKE 1 TABLET EVERY 4 TO 6 HOURS NEEDED FOR PAIN 10/06/19 25 2024 Discontinued (Pharmacist change per medication history (E-cancel not sent)) Active Problems Problem Noted Date Diagnosed Date Atherosclerosis of bill moore[place] slough ar teries of extremities with rest pain, left leg 08/28/2024 Peripheral sensory neuropathy 01/17/2024 B12 deficiency 01/17/2024 Impotence of organic origin 12/17/2023 Cauda equina compression 09/15/2023 Lumbar spinal stenosis 07/13/2023 S/P laminectomy 07/13/2023 Other half-way (current) drug therapy Stenosis of carotid artery 04/12/2023 Old myocardial infarction 04/12/2023 HTN (hypertension) 01/06/2023 Sensorineural hearing loss, bilateral 12/24/2022 Prostate cancer 06/26/2022 Overview (06/26/2022): Nayely 8. Diagnosed [facility]. 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 Prediabetes 09/03/2020 Iron deficiency anemia due to chronic blood loss 09/03/2020 Anemia 08/21/2020 Gastrointestinal hemorrhage 08/21/2020 Personal history of cardiovascular disorder 05/28 ACP (advance care planning) 09/26/2014 Overview (09/26/2014): Patient has identified Health Care Agent(s): Yes Add Health Care Agents: Yes Health Care Agent(s): Primary Health Care Agent: Richelle Garrett Relationship: sister Secondary Health Care Agent: Relationship: [...] WOJCIECH Oropeza .................... 09/11/2022 9:45 AM Encounters * This document contains information received from the source organization and may not represent a complete record from that organization. Date Type Department Care Team Description 02/07/2025 Telephone [facility] [address] [place] [id number] Walter Brown MD Concerns 02/07/2025 Patient Outreach [facility] [address] [place] [address] Shannan Crawford, RN Primary RN Care Management; Hospital F/U ([place] [address]) 02/05/[address] [facility] [address] [place] [phone] Dawna Reyes NP <No scans attached> 02/02/2025 8:30 AM CDT - 02/02/2025 2:[address] [facility] [address] [place] [id number] Walter Brown MD BILATERAL FEMOAL ENDARTERECTOMY, PATCH ANGIOPLASTY, PROFUNDAPLASTY 02/02/2025 8:19 AM CDT Anesthesia Event [facility] [address] [place] [address] Derick William MD 02/02/2025 6:11 AM CDT - 02/06/2025 9:59 AM CDT Hospital Encounter [facility] [address] [place] [phone] Walter Brown MD Lasley, Kirsten Elizabeth, DO Post-op pain (Primary Dx); Constipation, unspecified constipation type Discharge Disposition: Home Self Care 02/02/2025 Travel 01/19/2025 8:15 AM CDT Office Visit [facility] [address] [place] [address] Anette Mancuso PA Medicare ANNUAL (subsequent) Visit (Nonfasting. Needs refills of Gabapentin. Discuss managing medication. ) 01/19/2025 Travel 01/14/2025 Travel 01/09/2025 11:15 AM CDT Office Visit [address] [phone] Carol Dubon NP Follow Up (Iron deficiency anemia) 01/08/2025 9:30 AM CDT Office Visit [facility] [address] [place] [address] Anette Mancuso PA Preoperative Exam (02/02/25, ANW, arteries) 01/08/2025 Telephone [facility] [address] [place] [address] Anette Mancuso PA 01/08/2025 Travel 01/04/2025 11:15 AM CDT Orders Only [facility] [address] [place] [address] Lab, [place] Lab 01/04/2025 Travel 01/03/2025 3:00 PM CDT Telemedicine [facility] [address] [facility] [address] [place] [address] Lyndsay Monte [facility] Telehealth (No vitals taken) 01/03/2025 Travel 01/01/2025 Telephone [facility] [address] [place] [address] Carol Dubon NP Lab (Lab orders needed) 12/29/2024 Travel 12/27/2024 3:00 PM CDT Telemedicine [facility] [address] [facility] [address] [place] [address] [facility] (No vitals taken DA) 12/24/2024 Travel 12/22/2024 Telephone [facility] [address] [place] [address] Walter Brown MD Surgery Scheduled 12/22/2024 Travel 12/19/2024 10:00 AM CDT Office Visit [facility] [address] [address] Walter Brown MD CV Vascular Est (3 month follow up; bilateral lower extremity PAD.) 12/19/2024 8:30 AM CDT - 12/19/2024 11:59 PM CDT Hospital Encounter [facility] [address] [place] [address] Walter Brown MD Moore, Brian H PAD (peripheral artery disease) 12/19/2024 Travel 12/18/2024 11:00 AM CDT Telemedicine [facility] [address] [facility] [address] [place] [address] [facility] (No vitals taken) 12/16/2024 Travel 12/14/2024 Travel 12/12/2024 1:35 PM CDT Office Visit [facility] [address] [place] [address] Anette Mancuso PA Concerns (Would like help with Stopping Alcohol. ); Wound Check (Right knee) 12/12/2024 Travel 12/07/2024 Travel 12/05/2024 Nurse Triage [facility] [address] [place] [address] Anette Mancuso PA Dizziness from Last 3 Months Immunizations Immunization Administration Dates Next Due COVID-19 vaccine (Pfizer-Bio NTech 30mcg/0.3mL) 12YO+ BIVALENT PF, MDV 04/23/2022 COVID-19 vaccine (Pfizer-Bio NTech 30mcg/0.3mL) 12YO+ LUCY-SUCROSE PF, MDV 10/11/2021 COVID-19 vaccine (Pfizer-Bio NTech 30mcg/0.3mL) PF, MDV 02/02/2021,06/19/2020,05/28/2020 Influenza A (H1N1), Inactivated 04/15/2009 Influenza Virus, Unspecified 01/18/2020, 01/10/2019,02/17/2018,01/24,01/24/2013,02/10/2012,02/10/2012 ,01/24/2011,01/24/2011,01/24/2009,04/2008,02/25/2008,02/25/2008, 7,03/14/2007,01/24/2007,01/24/2007 Influenza, High-dose Inactivated 025,03/04/2016,02/26/2014,01/24 Influenza, IIV3 (Age >=3 years) 02/07/20 13,01/25/2012,02/17/2011,02/10 Influenza, Inactivated AIIV4 (Age 65+ Years) Preserv Free 01/06/2023,02/27/2021 Influenza, Inactivated IIV3 (Age 65+ Years) Preserv Free 01/17/2024,12/26/2021,02/29/2020,01/26 Pneumococcal Poly,23-Valent (Pneumovax) 02/26/2014,08/07/2013(Deferred: Patient Refused) Pneumococcal conj 13-Valent (Prevnar 13) 11/19/2015 Pneumococcal, Unspecified 11/19/2015 RSV, Recombinant ADJ Reconst ituted (Arexvy 120MCG/0.5mL) 01/28/2024 Td (Age >=7 Years) 07/23/2006,04/25/2006, 006 Td, Preservative Free (age >= 7 Years) 7 Tdap 08/11/2016 Zoster (Shingrix-RZV, recombinant) 04/14/2021, Zoster (Zostavax-ZVL, live) 02/22/2013,1 ,08/23/2012(Defer red: Patient Refused) Zoster, Unspecified Formulation 08/23/2012(Defer red: Patient Refused) Family History Medical History Relation [...] drink = 0.6 oz pur e alcohol) Stopping PHQ-2 Answer Date Recorded PHQ-2 TOTAL SCORE 0 01/19/2025 Social Connections Answer Date Recorded Do you often feel lonely or isolated from those around you? 0 01/19/2025 Alcohol Use Answer Date Recorded How often do you have a drink containing alcohol ? 1 01/09/2025 How many drinks containing a lcohol do you have on a typical day when you are drinking? 0 01/09/2025 How often do you have five or more drinks on one occasion? 0 01/09/2025 Financial Resource Strain Answer Date R ecorded Difficulty of Paying Living Expenses 3 01/19/2025 Difficulty of Paying Living Expenses Not on file 01/19/2025 Food Insecurity Answer Date Recorded Do you worry your food will run out before you are able to buy more? 1 01/19/2025 Transportation Needs Answer Date Record ed Does lack of transportation keep you from medica l appointments? 1 01/19/2025 Does lack of transportation keep you from work, meetings or getting things that you need? 1 01/19/2025 Housing Stability Answer Date Recorded What is your housing situation today? 1 01/19/2025 Interpersonal Safety Answer Date Record ed Are you being hit, kicked, p ushed or yelled at (see row info)? No 09/17/2023 Interpersonal Safety Abuse 12 - 18 Not on file 09/17/2023 Interpersonal Safety Ambulatory Vulnerability No t on file 09/17/2023 Utilities Answer Date Recorded Do you have trouble paying f or utilities (for example, heat, electricity, water, phone)? 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 file Not on file Not on file Obstetrics History Last Filed Vital Signs Vital Sign Reading Time Taken Comments Blood Pressure 123/66 02/06/2025 8:00 AM CDT Pulse 83 02/06/2025 8:00 AM CDT Temperature 36.8 C (98.3 F) 02/06/2025 8:00 AM CDT Respiratory Rate 18 02/06/2025 8:00 AM CDT Oxygen Saturation 95% 02/06/2025 8:00 AM CDT Inhaled Oxygen Concentration - - Weight 82.6 kg (182 lb 1.6 oz) 02/06/2025 3:00 A M CDT Height 172.7 cm (5' 8) 02/02/2025 6:45 AM CDT Body Mass Index 27.69 02/02/2025 6:45 AM CDT Plan of Treatment Upcoming Encounters Date Type Department Care Team (Late st Contact Info) Description 02/12/2025 8:40 AM CDT Office Visit [facility] [address] [place] [address] Anette Mancuso PA [address] [place] [address] 02/26/2025 8:30 AM WALLPAPER INSPECTOR Office Visit [facility] [address] [facility] [address] [place] [address] Sincere Cardona MD [address] [facility] [address] [place] [address] 02/28/2025 8:15 AM WALLPAPER INSPECTOR Orders Only [facility] [address] [place] [address] [place] 03/06/2025 9:15 AM WALLPAPER INSPECTOR Appointment [facility] [address] [place] [address] 03/06/2025 4:30 PM WALLPAPER INSPECTOR Office Visit [facility] [address] [place] [address] Walter Brown MD [address] [facility] [address] [place] [address] 09/10/2025 9:00 AM CDT Orders Only [facility] [address] [place] [address] Lab[place] 09/13/2025 11:15 AM CDT Office Visit [facility] [address] [facility] [place] [address] Carol Dubon, WASH OIL PUMP OPERATOR [address] [place], [place] [id number] Health Maintenance Due Date Last Done Comments BMI (ht and wt on same day) for age 18+ 01/08/2026 01/08/2025, 01/17/2024, 01/12/2024, Additional history exists Depression screening for age 12+ 01/19/2026 01/19/2025, 12/19/2024, 12/18/2024 Medicare Wellness for age 65+ 01/20/2026 01/19/2025, 01/17/2024, 01/06/2023, Additional history exists Tetanus booster 08/11/2026 08/11/2016, 06/26, 07/23/2006, Additional history exists Pneumococcal series for age 50+ Completed 11/19/2015, 11/19/2015, 11/19/2015, Additional history exists Zoster (shingles) series for age 50+ Completed 04/14/2021, 12/13/2020, 02/22/2013, Additional history exists Hepatitis C screening for age 18-79 Completed 12/25/2021 RSV vaccine for adults or Completed 01/28/2024 Influenza Vaccine Completed 12/24/2024, , 01/06/2023, Additional history exists COVID-19 vaccine series Completed 01/02/20, 02/03/2024, 04/23/2022, Additional history exists Hepatitis B series for 19+ Aged Out N o longer eligible based on patient's age to complete this topic Medical Devices Implanted Type Area Emergency Medicine Physician Device Identifier Shelf Expiration Date Model / Serial / Lot Tissue Pericardium 2x9cm Photo Fix Bovine - [id number] Implanted:Qty: 1 on 02/02/2025 by Walter Brown MD at [facility] Cv Implants Bilateral: Femoral Artery [employer] 04/01/2026 [id number] / / [id number] Procedures Procedure Name Priority Date/Time Associated Diagnosis Comments SCAN-CARDIAC STRIP 02/05/2025 7:22 PM CDT SCAN-CARDIAC STRIP 02/05/2025 7:22 PM CDT SCAN-CARDIAC STRIP 02/05/2025 12:01 PM CDT CREATININE Early AM 02/05/2025 8:09 AM CDT POTASSIUM Early AM 02/05/2025 8:09 AM CDT SODIUM Early AM 02/05/2025 8:09 AM CDT PLATELET COUNT Early AM 02/05/2025 8:09 AM CDT HEMOGLOBIN Early AM 02/05/2025 8:09 AM CDT SCAN-CARDIAC STRIP 02/04/2025 8:33 PM CDT SCAN-CARDIAC STRIP 02/04/2025 3:50 PM CDT CBC W PLT NO DIFF Early AM 02/04/2025 8:52 AM CDT SCAN-CARDIAC STRIP 02/03/2025 8:03 AM CDT BASIC METABOLIC PANEL Early AM 02/03/2025 6:40 AM CDT CBC W PLT NO DIFF Early AM 02/03/2025 6:40 AM CDT SCAN-CARDIAC STRIP 02/02/2025 11:42 PM CDT SCAN-CARDIAC STRIP 02/02/2025 11:42 PM CDT CBC W PLT NO DIFF Timed 02/02/2025 9:43 PM CDT PLATELET ESTIMATE Timed 02/02/2025 5:12 PM CDT CBC WITH AUTO DIFFERENTIAL Timed 02/02/2025 5:12 PM CDT CALCIUM IONIZED HOSPITAL DRAW ONLY Timed 02/02/2025 5:12 PM CDT PROTIME-INR Timed 02/02/2025 5:12 PM CDT FIBRINOGEN,QUANTITATIV E Timed 02/02/2025 5:12 PM CDT APTT Timed 02/02/2025 5:12 PM CDT CBC WITH AUTO DIFFERENTIAL Timed 02/02/2025 5:12 PM CDT TRANSFUSE PLASMA (NURSE COMMUNICATION ORDER) STAT 02/02/2025 4:49 PM CDT PLASMA ORDER Today 02/02/2025 4:09 PM CDT PLASMA SNGL DON FFPEA UNIT Today 02/02/2025 4:07 PM CDT TRANSFUSE PLASMA (NURSE COMMUNICATION ORDER) STAT 02/02/2025 3:50 PM CDT TRANSFUSE RBC (NURSE COMMUNICATION ORDER) STAT 02/02/2025 3:05 PM CDT PLASMA ORDER STAT 02/02/2025 2:30 PM CDT PLASMA SNGL DON FFPEA UNIT STAT 02/02/2025 2:29 PM CDT PLASMA SNGL DON FFPEA UNIT STAT 02/02/2025 2:29 PM CDT RBC W/O TYPE & SCREEN STAT 02/02/2025 2:09 PM CDT BASIC METABOLIC PANEL STAT 02/02/2025 1:19 PM CDT CBC W PLT NO DIFF STAT 02/02/2025 1:19 PM CDT PLASMA SNGL DON FFPEA UNIT STAT 02/02/2025 12:00 PM CDT PLASMA SNGL DON FFPEA UNIT STAT 02/02/2025 12:00 PM CDT PLASMA ORDER STAT 02/02/2025 11:51 AM CDT TRANSFUSE RBC (NURSE COMMUNICATION ORDER) Today 02/02/2025 11:43 AM CDT COMPREHENSIVE BLOOD GAS ARTERIAL Timed 02/02/2025 11:38 AM CDT TRANSFUSE RBC (NURSE COMMUNICATION ORDER) Today 02/02/2025 11:25 AM CDT RBC W/O TYPE & SCREEN STAT 02/02/2025 11:17 AM CDT RED BLOOD CELLS EA UNIT STAT 02/02/2025 11:16 AM CDT RED BLOOD CELLS EA UNIT STAT 02/02/2025 11:16 AM CDT TRANSFUSE RBC (NURSE COMMUNICATION ORDER) STAT 02/02/2025 11:07 AM CDT COMPREHENSIVE BLOOD GAS ARTERIAL Timed 02/02/2025 11:01 AM CDT RED BLOOD CELLS EA UNIT STAT 02/02/2025 11:00 AM CDT RED BLOOD CELLS EA UNIT STAT 02/02/2025 11:00 AM CDT RBC W/O TYPE & SCREEN STAT 02/02/2025 10:58 AM CDT ENDOTRACHEAL TUBE Routine 02/02/2025 9:17 AM CDT COMPREHENSIVE BLOOD GAS ARTERIAL Timed 02/02/2025 9:03 AM CDT ENDARTERECTOMY FEMORAL ARTERY 02/02/2025 8:00 AM CDT isabling claudication of bilateral lower extremities Case Notes BILATERAL FEMOAL ENDARTERECTOMY, PATCH ANGIOPLASTY, PROFUNDAPLASTY, BILATERAL LOWER EXTREMITIES ANGIOGRAPHY HCHG KIT PR5 Routine 02/02/2025 7:40 AM CDT HC DRSG PR5 Routine 02/02/2025 7:40 AM CDT [facility] DRSG PR1 Routine 02/02/2025 7:40 AM CDT [facility] TUBING PR20 Routine 02/02/2025 7:40 AM CDT [facility] TUBING PR1 Routine 02/02/2025 7:40 AM CDT [facility] ANES ARTERIAL CATH FOR SAMPLE MONITOR TRANS Routine 02/02/2025 7:40 AM CDT [facility] ANES US GUIDE FOR VASC ACCESS Routine 02/02/2025 7:40 AM CDT [facility] CATH INFUSION PR10 Routine 02/02/2025 7:40 AM CDT RED BLOOD CELLS EA UNIT STAT 02/02/2025 6:45 AM CDT RBC W TYPE AND SCREEN STAT 02/02/2025 6:43 AM CDT PROTIME-INR Preop 02/02/2025 6:43 AM CDT BASIC METABOLIC PANEL Preop 02/02/2025 6:43 AM CDT CBC W PLT NO DIFF Preop 02/02/2025 6:43 AM CDT SCAN-CARDIAC STRIP 02/02/2025 12:00 AM CDT POTASSIUM Add On 01/04/2025 11:09 AM CDT Preop examination CBC WITH AUTO DIFFERENTIAL Routine 01/04/2025 11:09 AM CDT Iron deficiency anemia due to chronic blood loss VITAMIN B12 Routine 01/04/2025 11:09 AM CDT Iron deficiency anemia due to chronic blood loss IRON PLUS IRON BINDING CAP Routine 01/04/2025 11:09 AM CDT Iron deficiency anemia due to chronic blood loss FERRITIN Routine 01/04/2025 11:09 AM CDT Iron deficiency anemia due to chronic blood loss CBC WITH AUTO DIFFERENTIAL Routine 01/04/2025 11:09 AM CDT Iron deficiency anemia due to chronic blood loss US ARTERIAL LOWER EXTREMITY W NEEMA BILATERAL Routine 12/19/2024 9:34 AM CDT PAD (peripheral artery disease) AMB CONSULT TO GASTROENTEROLOGY Routine 12/18/2024 7:24 PM CDT Iron deficiency anemia, unspecified iron deficiency anemia type SCAN-COLONOSCOPY 12/14/2024 7:30 AM CDT AMB CONSULT TO GASTROENTEROLOGY ALAN 11/07/2024 7:38 PM CDT Rectal bleeding ANTI HCV Routine 12/25/2021 2:47 PM CDT Need for hepatitis C screening test from Last 3 Months or Most Recently Relevant to Health Maintenance Results * SCAN-CARDIAC STRIP (02/05/2025 7:22 PM CDT) us Scanner OTHER Final Result * SCAN-CARDIAC STRIP (02/05/2025 7:22 PM CDT) us Scanner OTHER Final Result * SCAN-CARDIAC STRIP (02/05/2025 12:01 PM CDT) us Scanner OTHER Final Result * (ABNORMAL) Platelets AM (02/05/2025 8:09 AM CDT) PLATELET COUNT 121(L) 140 - 440 thou/cu mm 02/05/2025 8:37 AM CDT [facility] MPV 10.5 6.5 - 11.0 fL 02/05/2025 8:37 AM CDT [facility] Blood BLOOD SPECIMEN / Unknown Butterfly / Unknown 02/05/2025 8:09 AM CDT 02/05/2025 8:29 AM CDT Robbin Mora MD HEMATOLOGY Final Re sult Performing Organization Address City/[facility]/ZIP Co de Phone Number [facility] [address] [address], [place] * (ABNORMAL) Hemoglobin AM (02/05/2025 8:09 AM CDT) Pathologist [facility] HEMOGLOBIN 9.2(L) 13.5 - 17.5 g/dL 02/05/2025 8:37 AM CDT [facility] MCV 91 80 - 100 fL 02/05/2025 8:37 AM CDT [facility] [facility] Blood BLOOD SPECIMEN / Unknown Butterfly / Unknown 02/05/2025 8:09 AM CDT 02/05/2025 8:29 AM CDT Robbin Mora MD HEMATOLOGY Final Re sult Performing Organization Address City/[facility]/ZIP Co de Phone Number [facility] [address] [place] [address], [place] * SODIUM (02/05/2025 8:09 AM CDT) Pathologist [facility] SODIUM 142 136 - 145 mmol/L 02/05/2025 9:01 AM CDT [facility] Blood BLOOD SPECIMEN / Unknown Butterfly / Unknown 02/05/2025 8:09 AM CDT 02/05/2025 8:29 AM CDT Robbin Mora MD CHEMISTRY Final Re sult Performing Organization Address City/[facility]/ZIP Co de Phone Number [facility] [address] [place], [place] [id number], [place] * POTASSIUM (02/05/2025 8:09 AM CDT) Only the most recent of2 resultswithin the time period is included. POTASSIUM 3.8 3.5 - 5.1 mmol/L 02/05/2025 9:01 AM CDT [facility] Blood BLOOD SPECIMEN / Unknown Butterfly / Unknown 02/05/2025 8:09 AM CDT 02/05/2025 8:29 AM CDT Robbin Mora MD CHEMISTRY Final Re sult Performing Organization Address [facility] de Phone Number [facility] [address] [place] [address], [place] * CREATININE (02/05/2025 8:09 AM CDT) eGFR >90 >90 mL/min/1.7 3m2 02/05/2025 9:01 AM CDT [facility] Comment:As of 2021, eG FR is calculated by the CKD-EPI creatinine equation without race adjustment. eGFR can be influenced by muscle mass, exercise, and diet. The reported eGFR is an estimation only and is only applicable if the renal function is stable. CREATININE 0.74 0.70 - 1.20 mg/dL 02/05/2025 9:01 AM CDT [facility] Blood BLOOD SPECIMEN / Unknown Butterfly / Unknown 02/05/2025 8:09 AM CDT 02/05/2025 8:29 AM CDT Robbin Mora MD CHEMISTRY Final Re sult Performing Organization Address [facility] de Phone Number [facility] [address] [address], [place] * SCAN-CARDIAC STRIP (02/04/2025 8:33 PM CDT) us Scanner OTHER Final Result * SCAN-CARDIAC STRIP (02/04/2025 3:50 PM CDT) us Scanner OTHER Final Result * (ABNORMAL) CBC W PLT NO DIFF (02/04/2025 8:52 AM CDT) Only the most recent of5 resultswithin the time period is included. WHITE BLOOD COUNT 7.6 4.5 - 11.0 thou/cu mm 02/04/2025 10:10 AM CDT [facility] RED BLOOD COUNT 3.25(L) 4.30 - 5.90 mil/cu mm 02/04/2025 10:10 AM CDT [facility] HEMOGLOBIN 9.8(L) 13.5 - 17.5 g/dL 02/04/2025 10:10 AM CDT [facility] HEMATOCRIT 29.6(L) 37.0 - 53.0 % 02/04/2025 10:10 AM CDT [facility] MCV 91 80 - 100 fL 02/04/2025 10:10 AM CDT [facility] MCH 30.2 26.0 - 34.0 pg 02/04/2025 10:10 AM CDT [facility] MCHC 33.1 32.0 - 36.0 g/dL 02/04/2025 10:10 AM CDT [facility] RDW 16.7(H) 11.5 - 15.5 % 02/04/2025 10:10 AM CDT [facility] PLATELET COUNT 111(L) 140 - 440 thou/cu mm 02/04/2025 10:10 AM CDT [facility] MPV 10.7 6.5 - 11.0 fL 02/04/2025 10:10 AM CDT [facility] NRBC 0.0 % 02/04/2025 10:10 AM CDT [facility] ABS NRBC 0.0 thou /cu mm 02/04/2025 10:10 AM T [facility] Blood BLOOD SPECIMEN / Unknown Venipuncture / Unknown 02/04/2025 8:52 AM CDT 02/04/2025 9:28 AM CDT us Letty Hoffman DO HEMATOLOGY Final Result [facility] [address] [place] [address], * SCAN-CARDIAC STRIP (02/03/2025 8:03 AM CDT) us Scanner OTHER Final Result * (ABNORMAL) BASIC METABOLIC PANEL (02/03/2025 6:40 AM CDT) Only the most recent of3 resultswithin the time period is included. [facility] SODIUM 138 136 - 145 mmol/L 02/03/2025 7:52 AM CDT [facility] POTASSIUM 3.9 3.5 - 5.1 mmol/L 02/03/2025 7:52 AM CDT [facility] CHLORIDE 105 98 - 107 mmol/L 02/03/2025 7:52 AM CDT [facility] CO2,TOTAL 20(L) 22 - 29 mmol/L 02/03/2025 7:52 AM CDT [facility] ANION GAP 13 5 - 18 02/03/2025 7:52 AM CDT [facility] GLUCOSE 92 70 - 99 mg/dL 02/03/2025 7:52 AM CDT [facility] CALCIUM 7.8(L) 8.8 - 10.4 mg/dL 02/03/2025 7:52 AM CDT [facility] Comment: Reference ranges for this test were updated on 02/29/2024 to reflect our healthy population more accurately. Reference range changes are not retroactively applied to results, but previous results using the same methodology can be interpreted in the context of the new reference range. BUN 13 8 - 23 mg/dL 02/03/2025 7:52 AM CDT [facility] CREATININE 0.63(L) 0.70 - 1.20 mg/dL 02/03/2025 7:52 AM T [facility] BUN/CREAT RATIO 21(H) 10 - 20 7:52 AM CDT [facility] eGFR >90 >90 mL/min/1. 73m2 02/03/2025 7:52 AM CDT [facility] Comment:As of 2021, eG FR is calculated by the CKD-EPI creatinine equation without race adjustment. eGFR can be influenced by muscle mass, exercise, and diet. The reported eGFR is an estimation only and is only applicable if the renal function is stable. Blood BLOOD SPECIMEN / Unknown Venipuncture / Unknown 02/03/2025 6:40 AM CDT 02/03/2025 7:11 AM CDT us Dilip Gaffney MD CHEMISTRY Final Result [facility] [address] [place] [address], [place] * SCAN-CARDIAC STRIP (02/02/2025 11:42 PM CDT) us Scanner OTHER Final Result * SCAN-CARDIAC STRIP (02/02/2025 11:42 PM CDT) us Scanner OTHER Final Result * TRANSFUSE PLASMA (NURSE COMMUNICATION ORDER) (02/02/2025 5:24 PM CDT) Blood BLOOD SPECIMEN / Unknown us Dilip Gaffney MD NURSING BLOOD BANK Final Result * (ABNORMAL) CBC WITH AUTO DIFFERENTIAL (02/02/2025 5:12 PM CDT) Only the most recent of2 resultswithin the time period is included. WHITE BLOOD COUNT 9.4 4.5 - 11.0 thou/cu mm 02/02/2025 6:58 PM CDT [facility] RED BLOOD COUNT 2.77(L) 4.30 - 5.90 mil/cu mm 02/02/2025 6:58 PM CDT [facility] HEMOGLOBIN 8.3(L) 13.5 - 17.5 g/dL 02/02/2025 6:58 PM CDT [facility] HEMATOCRIT 24.4(L) 37.0 - 53.0 % 02/02/2025 6:58 PM CDT [facility] MCV 88 80 - 100 fL 02/02/2025 6:58 PM CDT [facility] MCH 30.0 26.0 - 34.0 pg 02/02/2025 6:58 PM CDT [facility] MCHC 34.0 32.0 - 36.0 g/dL 02/02/2025 6:58 PM CDT [facility] RDW 16.1(H) 11.5 - 15.5 % 02/02/2025 6:58 PM CDT [facility] PLATELET COUNT 90(L) 140 - 440 thou/cu mm 02/02/2025 6:58 PM CDT [facility] MPV 9.8 6.5 - 11.0 fL 02/02/2025 6:58 PM CDT [facility] NRBC 0.0 % 02/02/2025 6:58 PM CDT [facility] ABS NRBC 0.0 thou /cu mm 02/02/2025 6:58 PM CDT [facility] % NEUT 90.0 % 02/02/2025 6:58 PM CDT [facility] % LYMPH 3.4 % 02/02/2025 6:58 PM CDT [facility] % MONO 5.8 % 02/02/2025 6:58 PM CDT [facility] % EOS 0.0 % 02/02/2025 6:58 PM CDT [facility] % BASO 0.2 % 02/02/2025 6:58 PM CDT [facility] % IMMATURE GRAN (METAS,MYELOS,OR OS) 0.6 % 02/02/2025 6:58 PM CDT [facility] ABSOLUTE NEUTROPHILS 8.4(H) 1.7 - 7.0 thou/cu mm 02/02/2025 6:58 PM CDT [facility] ABSOLUTE LYMPHOCYTES 0.3(L) 0.9 - 2.9 thou/cu mm 02/02/2025 6:58 PM CDT [facility] ABSOLUTE MONOCYTES 0.5 <0.9 thou/cu mm 02/02/2025 6:58 PM CDT [facility] ABSOLUTE EOSINOPHILS 0.0 <0.5 thou/cu mm 02/02/2025 6:58 PM CDT [facility] ABSOLUTE BASOPHILS 0.0 <0.3 thou/cu mm 02/02/2025 6:58 PM CDT [facility] ABSOLUTE IMMATURE GRANULOCYTES(MET ,MYELOS,PROS) 0.1 <0.3 thou/cu mm 02/02/2025 6:58 PM CDT [facility] Blood BLOOD SPECIMEN / Unknown Non-Lab Venipuncture / Unknown 02/02/2025 5:12 PM CDT 02/02/2025 5:38 PM CDT us Dilip Gaffney MD HEMATOLOGY Final Result Performing Organization Address City/[facility]/ZIP Co de Phone Number [facility] [address] [place] [address], [place] * (ABNORMAL) PLATELET ESTIMATE (02/02/2025 5:12 PM CDT) PLATELET ESTIMATE Decreased (A) Adequate, No estimate 02/02/2025 6:58 PM CDT [facility] Blood BLOOD SPECIMEN / Unknown Non-Lab Venipuncture / Unknown 02/02/2025 5:12 PM CDT 02/02/2025 5:38 PM CDT us Dilip Gaffney MD HEMATOLOGY Final Result [facility] [address] [place] [address], [place] * APTT (02/02/2025 5:12 PM CDT) APTT 30 25 - 36 sec 02/02/2025 5:53 PM CDT [facility] Blood BLOOD SPECIMEN / Unknown Non-Lab Venipuncture / Unknown 02/02/2025 5:12 PM CDT 02/02/2025 5:38 PM CDT [facility] - 02/02/2025 5:53 PM CDT Therapeutic Range: 59-89 seconds us Dilip Gaffney MD HEMATOLOGY Final Result Performing Organization Address [facility] Co de Phone Number [facility] [address] [address], [place] * (ABNORMAL) PROTIME-INR (02/02/2025 5:12 PM CDT) Only the most recent of2 resultswithin the time period is included. INR 1.2 <1.3 02/02/2025 5:53 PM CDT [facility] PROTIME 14.2(H) 10.6 - 12.4 sec 02/02/2025 5:53 PM CDT [facility] Blood BLOOD SPECIMEN / Unknown Non-Lab Venipuncture / Unknown 02/02/2025 5:12 PM CDT 02/02/2025 5:38 PM CDT [facility] - 02/02/2025 5:53 PM CDT Therapeutic Range 2.0-3.0 for most anticoagulated patients 2.5-3.5 or 4.0 for high risk patients The INR is only used for patients on stable oral anticoagulant therapy. It makes no significant contribution to the diagnosis or treatment of patients whose Protime is prolonged for other reasons. INR results are increased when heparin levels exceed 1.0 U/mL, which corresponds to an aPTT >125 seconds if the patient is on UFH. us Dilip Gaffney MD HEMATOLOGY Final Result Performing Organization Address [facility] Co de Phone Number [facility] [address] [place] [address], [place] * (ABNORMAL) FIBRINOGEN,QUANTITATIVE (02/02/2025 5:12 PM CDT) FIBRINOGEN,JIMMY NTITATIVE 150(L) 193 - 401 mg/dL 02/02/2025 5:53 PM CDT [facility] Blood BLOOD SPECIMEN / Unknown Non-Lab Venipuncture / Unknown 02/02/2025 5:12 PM CDT 02/02/2025 5:38 PM CDT Dilip Gaffney MD HEMATOLOGY Final Result Performing Organization Address City/[facility]/ZIP Co de Phone Number [facility] [address] * (ABNORMAL) CALCIUM IONIZED HOSPITAL DRAW ONLY (02/02/2025 5:12 PM CDT) CALCIUM,IONIZE D 1.04(L) 1.15 - 1.27 mmol/L 02/02/2025 5:44 PM CDT [facility] Blood BLOOD SPECIMEN / Unknown Non-Lab Venipuncture / Unknown 02/02/2025 5:12 PM CDT 02/02/2025 5:38 PM CDT Dilip Gaffney MD CHEMISTRY Final Result Performing Organization Address City/[facility]/ZIP Co de Phone Number [facility] [address] [place] [address], * TRANSFUSE PLASMA (NURSE COMMUNICATION ORDER) (02/02/2025 4:48 PM CDT) Blood BLOOD SPECIMEN / Unknown Dilip Gaffney MD NURSING BLOOD BANK Final Result * TRANSFUSE RBC (NURSE COMMUNICATION ORDER) (02/02/2025 4:17 PM CDT) Blood BLOOD SPECIMEN / Unknown Derick Salter MD NURSING BLOOD BANK Final Result * PLASMA ORDER, 1 unit (02/02/2025 4:09 PM CDT) Only the most recent of3 resultswithin the time period is included. QUANTITY 1 02/02/2025 4:0 9 PM CDT [facility] LAB B[facility] B[facility] Blood BLOOD SPECIMEN / Unknown 02/02/2025 4:07 PM CDT Walter Brown MD BLOOD BANK Final Result [facility] [employer]-CENTRAL LAB BLOOD BANK [address] [place] [address], * PLASMA SNGL DON FFPEA UNIT (02/02/2025 4:07 PM CDT) Only the most recent of5 resultswithin the time period is included. PRODUCT BLOOD TYPE O Rh Positive [facility] [employer]-CENTRAL LAB BLOOD BANK PRODUCT ID NUMBER [id number] [facility] [employer]-CENTRAL LAB BLOOD BANK PRODUCT STATUS Transfused [facility] [employer]-CENTRAL LAB BLOOD BANK PRODUCT DESCRIPTION FP CPD [facility] [employer]-CENTRAL LAB BLOOD BANK PRODUCT CODE [id number] [facility] BioxodesCENTRAL LAB BLOOD BANK ISSUE DATE/TIME 02/02/25 16:41 [facility] [employer] LAB BLOOD BANK us Walter Brown MD BLOOD BANK Edited Result - Final Performing Organization Address [facility]/ZIP Co de Phone Number [facility] LAB BLOOD BANK [address] [place] [address], * RBC W/O TYPE & SCREEN (02/02/2025 2:09 PM CDT) Only the most recent of3 resultswithin the time period is included. QUANTITY 1 02/02/2025 2:0 9 PM CDT [facility] Blood BLOOD SPECIMEN / Unknown 02/02/2025 2:07 PM CDT Derick Salter MD BLOOD BANK Fi nal Result [facility] LAB BLOOD BANK [address] [place] [address], * TRANSFUSE RBC (NURSE COMMUNICATION ORDER) (02/02/2025 11:43 AM CDT) Blood BLOOD SPECIMEN / Unknown Derick Salter MD NURSING BLOOD BANK Final Result * (ABNORMAL) COMPREHENSIVE BLOOD GAS ARTERIAL (02/02/2025 11:38 AM CDT) Only the most recent of3 resultswithin the time period is included. PH, ARTERIAL 7.42 7.35 - 7.45 02/02/2025 11:38 AM CDT [facility] PCO2, ARTERIAL 35 35 - 48 mmHg 02/02/2025 11:38 AM T [facility] PO2, ARTERIAL 221(H) 83 - 108 mmHg 02/02/2025 11:38 AM T [facility] HCO3, ARTERIAL 23 21 - 28 mmol/L 02/02/2025 11:38 AM T [facility] BASE EXCESS, ARTERIAL -1.5 -2.0 - 3.0 02/02/2025 11:38 AM T [facility] O2 SATURATION, ARTERIAL 99(H) 94 - 98 % 02/02/2025 11:38 AM T [facility] PATIENT TEMPERATURE 37.0 Degrees C 02/02/2025 11:38 AM T [facility] NTRKY LABORATORY COLLECTION SITE ARTERIAL LINE 02/02/2025 11:38 AM T [facility] HEMOGLOBIN,BLOO D GAS 9.3(L) 13.5 - 17.5 g/dL 02/02/2025 11:38 AM T [facility] SODIUM 134(L) 136 - 145 mmol/L 02/02/2025 11:38 AM T [facility] POTASSIUM 4.1 3.5 - 5.1 mmol/L 02/02/2025 11:38 AM T [facility]-CE NTRAL LABORATORY CHLORIDE 108(H) 98 - 107 mmol/L 02/02/2025 11:38 AM CDT [facility] LABORATORY-CE NTRKY LABORATORY Blood BLOOD SPECIMEN / Unknown 02/02/2025 11:38 AM CDT 02/02/2025 11:38 AM CDT Walter Brown MD CHEMISTRY Final Result [facility] [address] [place] [address], * TRANSFUSE RBC (NURSE COMMUNICATION ORDER) (02/02/2025 11:25 AM CDT) Blood BLOOD SPECIMEN / Unknown us Derick Salter MD NURSING BLOOD BANK Final Result * RED BLOOD CELLS EA UNIT (02/02/2025 11:16 AM CDT) Only the most recent of5 resultswithin the time period is included. [facility] CROSSMATCH Compatible Compatible [facility] [employer] LAB BLOOD BANK PRODUCT BLOOD TYPE O Rh Positive [facility] LAB BLOOD BANK PRODUCT ID NUMBER [id number] [facility] LAB BLOOD BANK PRODUCT STATUS Transfused [facility] LAB BLOOD BANK PRODUCT DESCRIPTION RBC -1 LR [facility] LAB BLOOD BANK PRODUCT CODE [id number] [facility] LAB BLOOD BANK ISSUE DATE/TIME 02/02/25 14:46 [facility] LAB BLOOD BANK Walter Brown MD BLOOD BANK Edited Result - Final [facility] [address] [place] [address], [place] [phone] * TRANSFUSE RBC (NURSE COMMUNICATION ORDER) (02/02/2025 11:08 AM CDT) Blood BLOOD SPECIMEN / Unknown Paulettepadmini JEFFREY NURSING BLOOD BANK Final Result * ETT (02/02/2025 9:17 AM CDT) Narrative Mary Brunson CRNA Student - 02/02/2025 9:17 AM CDT Mary Brunson CRNA Student 02/02/2025 9:44 AM Procedure: ETT Patient location during procedure: OR ETT Properties Mask Ventilation: easy Final Technique: video laryngoscopy Type: straight Location: oral Cuffed: yes Tube Size: 7.0 mm Stylet: yes Laryngoscope Blade: Glidescope Blade Size: 3 Cormack-Lehane Grade View: 1 Insertion Attempts: 1 Placement Verification: auscultation, end tidal CO2 and symmetrical chest wall movement Assessment: pharynx clear, atraumatic and dentition unchanged Secured at: 21 Measured From: teeth Difficulty: 0 (not difficult) Notes: Elective video laryngoscopy due to mallampati 3 us Derick Salter MD ANESTHESIA PX NOTE ORDERABLES Edited Result - Final * [facility] CATH INFUSION PR10, [facility] ANES US GUIDE FOR VASC ACCESS, [facility] ANES ARTERIAL CATH FOR SAMPLE MONITOR TRANS, [facility] TUBING PR1, HCHG TUBING PR20, HCHG DRSG PR1, HCHG DRSG PR5, HCHG KIT PR5 (02/02/2025 7:40 AM CDT) Derick Quezada MD - 02/02/2025 7:40 AM CDT Derick William MD 02/02/2025 7:41 AM Arterial Line Patient location during procedure: pre-op Start time: 02/02/2025 7:30 AM End time: 02/02/2025 7:40 AM Indications: lab sampling and monitoring Staffing Preanesthetic Checklist Completed: patient identified, risks and benefits discussed, consent obtained and timeout performed Arterial Line Patient position: supine. Comment:. Laterality: left Site: radial Local Anesthetic: lidocaine 1%. Ultrasound guidance: live ultrasound, ultrasound permanent image saved and sterile gel and probe cover used in ultrasound-guided central venous catheter insertion. Needle localization (ultrasound): no pathologic findings, selected vessel patent, anatomically normal, potential access sites evaluated and needle visualized entering selected vessel. Securement/dressing: Biopatch applied, dressing applied. Comment: Vessel Facilities Director Additional supplies used to locate vessel: no Needle Catheter size: 20 G. Comment:. Catheter length: 12 cm. Comment: Events: no complications. Tatianna Salazar CONCRETE BLOCK PLANT SUPERVISOR ANESTHESIA PX NOTE ORDERABLES Final Result * RBC W TYPE AND SCREEN (02/02/2025 6:43 AM CDT) ABORH O Rh Positive 02/02/2025 7:35 AM CDT [facility] LAB-CENTRAL LAB BLOOD BANK ANTIBODY SCREEN Negative Negative 02/02/2025 7:35 AM CDT [facility] SPECIMEN EXPIRATION DATE/TIME 02/05/25 23:59 02/02/2025 7:35 AM CDT [facility] LAB-CENTRAL LAB BLOOD BANK Blood BLOOD SPECIMEN / Unknown Butterfly / Unknown 02/02/2025 6:43 AM CDT 02/02/2025 6:53 AM CDT Paulette JEFFREY BLOOD BANK Final Result [facility] LAB BLOOD BANK [address] [place] [address], [place] [phone] * SCAN-CARDIAC STRIP (02/02/2025 12:00 AM CDT) Narrative 02/02/2025 12:00 AM CDT Ordered by an unspecified provider. Other Clinical Staff OTHER Final Resul t * (ABNORMAL) IRON PLUS IRON BINDING CAP (01/04/2025 11:09 AM CDT) IRON, TOTAL 67 50 - 180 mcg/dL 01/05/2025 5:02 AM CDT [facility] IRON BINDING CAPACITY 411 250 - 425 mcg/dL (calc) 01/05/2025 5:02 AM CDT [facility] % SATURATION 16(L) 20 - 48 % (calc) 01/05/2025 5:02 AM CDT [facility] Blood BLOOD SPECIMEN / Unknown [facility] / Unknown 01/04/2025 11:09 AM CDT 01/04/2025 11:09 AM CDT us Alejandrina Alfaro RN CHEMISTRY Final Resu lt Performing Organization Address [facility]/ZIP Co de Phone Number [facility] [address] [address], [place] [phone] * (ABNORMAL) FERRITIN (01/04/2025 11:09 AM CDT) FERRITIN 20(L) 24 - 380 ng/mL 01/05/2025 3:52 AM CDT [facility] Blood BLOOD SPECIMEN / Unknown [facility] / Unknown 01/04/2025 11:09 AM CDT 01/04/2025 11:09 AM CDT us Alejandrina Alfaro RN CHEMISTRY Final Resu lt Performing Organization Address [facility] Co de Phone Number [facility] [address] [address], [place] [phone] * VITAMIN B12 (01/04/2025 11:09 AM CDT) VITAMIN B12 661 200 - 1100 pg/mL 01/05/2025 3:52 AM CDT [facility] Blood BLOOD SPECIMEN / Unknown [facility] / Unknown 01/04/2025 11:09 AM CDT 01/04/2025 11:09 AM CDT us Alejandrina Alfaro RN CHEMISTRY Final Resu lt Performing Organization Address [facility] Co de Phone Number [facility] [address] [address], [place] [phone] * US ARTERIAL LOWER EXTREMITY W NEEMA BILATERAL (12/19/2024 9:34 AM CDT) Anatomical Region Laterality Modality LEGS Ultrasound 12/19/2024 8:36 AM CDT Narrative 12/20/2024 6:40 AM CDT VASCULAR ULTRASOUND REPORT BRANDI GARRETT : 1950 Study Date: 12/19/2024 8:36:32 AM Age: 74 years Tech: Braxton Gender: M Referring MD: WALTER BROWN Site: [facility] Study performed: Lower extremity duplex US, resting NEEMA, TBI, (bilateral). Indication for study: Follow-up [employer]AR[employer]UC[employer] AIDE/stent/bypass Study Quality: Good TECHNIQUE: Lower/upper extremity arteries [...] requirements. IMPRESSION: 1. Resting ankle-brachial index is moderately reduced on the right at 0.66 and is mildly reduced on the left at 0.88. 2. Toe-brachial index is moderately reduced on the right at 0.45 and toe- brachial index is mildly reduced on the left at 0.50. 3. Duplex imaging of the right lower extremity shows monophasic inflow. The common femoral artery has heavy calcifications and shadowing with turbulent waveforms suggesting significant stenosis however shadowing limits interrogation. The superficial femoral artery is stented throughout with a mild >50% stenosis at mid stent. The posterior tibial artery and dorsalis pedis artery are patent with monophasic waveforms. 4. Duplex imaging of the left lower extremity shows multiphasic inflow. The profunda femoral artery is not visualized. The superficial femoral is stented proximally and distally without significant stenosis. The popliteal artery is stented with heavy calcifications limiting interrogation. Large genicular collaterals are seen collateralizing flow distally. The posterior tibial artery and dorsalis pedis artery are patent with monophasic waveforms. COMPARISON: Compared to prior study 08/29/2024, the right NEEMA is slightly lower on today's exam (previously 0.74 and now 0.66). The previously documented distal common femoral artery lesion is poorly seen on today's exam due to calcific shadowing. On the left, the NEEMA and TBI are improved with better pulse volume recordings suggesting improved collateral support. NEEMA (previously 0.75 and now 0.88). FINDINGS: Right toe/brachial index indicates moderate range. Left toe/brachial index indicates mild range. +--------+ + + +------+ RIGHT Velocity cm/s PRE Phasicity Ratio Velocity cm/s Phasicity +--------+ + + +------+ GRAIN OPERATIONS MANAGER PRX 86 monophasic +--------+ + + +------+ GRAIN OPERATIONS MANAGER DST 121 stenotic +--------+ + + +------+ PFA 158 monophasic +--------+ + + +------+ SFA PRX 159 monophasic +--------+ + + +------+ SFA MID 270 125 stenotic 2.2:1 +--------+ + + +------+ SFA DST 118 monophasic +--------+ + + +------+ MAULIK PRX 45 monophasic +--------+ + + +------+ MAULIK DST 42 monophasic +--------+ + + +------+ EARLY CHILDHOOD EDUCATOR AIDE DST 56 monophasic +--------+ + + +------+ DPA 53 monophasic +--------+ + + +------+ +--------+ + + LEFT Velocity cm/s Phasicity +--------+ + + GRAIN OPERATIONS MANAGER PRX 122 multiphasic +--------+ + + GRAIN OPERATIONS MANAGER DST 135 multiphasic +--------+ + + SFA PRX 152 multiphasic +--------+ + + SFA MID 101 monophasic +--------+ + + SFA DST 65 monophasic +--------+ + + MAULIK DST 120 multiphasic +--------+ + + EARLY CHILDHOOD EDUCATOR AIDE DST 29 monophasic +--------+ + + DPA 52 monophasic +--------+ + + Criteria: Stenosis V. Ratio Mild <50% <2.0 Moderate 50-74% > or = 2.0 Severe 75-99% > or = 4.0 Occluded 100% no detectable flow Pressures +-----+ +--------+ +-----+ RIGHT (mmHg) LEFT (mmHg) +-----+ +--------+ +-----+ Index 120 Brachial 120 Index +-----+ +--------+ +-----+ EARLY CHILDHOOD EDUCATOR AIDE 94 0.78 +-----+ +--------+ +-----+ 0.66 79 DPA 105 0.88 +-----+ +--------+ +-----+ 0.45 54 Digit 1 60 0.50 +-----+ +--------+ +-----+ STENT Stent Location Right: SFA. + + + +--------+-----+ RIGHT Velocity cm/s Phasicity Stenosis Ratio + + + +--------+-----+ PRE Stent 101 monophasic + + + +--------+-----+ PRX Stent 159 monophasic + + + +--------+-----+ 125 monophasic + + + +--------+-----+ MID Stent 270 stenotic >50% 2.2:1 + + + +--------+-----+ DST Stent 118 monophasic + + + +--------+-----+ POST Stent 155 monophasic + + + +--------+-----+ Stent Location Left: SFA prox. + + + +--------+-----+ LEFT Velocity cm/s Phasicity Stenosis Ratio + + + +--------+-----+ PRE Stent 135 multiphasic + + + +--------+-----+ PRX Stent 152 multiphasic + + + +--------+-----+ MID Stent 101 monophasic + + + +--------+-----+ DST Stent 88 monophasic + + + +--------+-----+ POST Stent 84 monophasic + + + +--------+-----+ Stent Location Left #2: D.SFA to Pop artery. + + + +--------+-----+ LEFT Velocity (cm/s) Phasicity Stenosis Ratio + + + +--------+-----+ PRE Stent 52 monophasic + + + +--------+-----+ PRX Stent 65 monophasic + + + +--------+-----+ MID Stent 89 monophasic + + + +--------+-----+ DST Stent 120 monophasic + + + +--------+-----+ POST Stent 100 monophasic + + + +--------+-----+ Mychal Saeed MD. Electronically signed on 12/20/2024 6:40:27 AM This study was performed and interpreted by a service accredited by the Intersocietal Accreditation Commission (IAC/Vascular), [email or web address] Report generated by [employer]. Final Procedure Note Mychal Saeed MD - 12/20/2024 VASCULAR ULTRASOUND REPORT BRANDI Pressley TAMI : 1950 Study Date: 12/19/2024 8:36:32 AM Age: 74 years Tech: ROSAURA Gender: M Referring MD: WALTER BROWN Site: [facility] Study performed: Lower extremity duplex US, resting NEEMA, TBI,(bilateral). Indication for study: Follow-up EARLY CHILDHOOD EDUCATOR AIDE/stent/bypass Study Quality: Good TECHNIQUE: Lower/upper extremity arteries [...] requirements. IMPRESSION: 1. Resting ankle-brachial index is moderately reduced on the right at0.66 and is mildly reduced on the left at 0.88. 2. Toe-brachial index is moderately reduced on the right at 0.45 andtoe-brachial index is mildly reduced on the left at 0.50. 3. Duplex imaging of the right lower extremity shows monophasic inflow.The common femoral artery has heavy calcifications and shadowing withturbulent waveforms suggesting significant stenosis however shadowinglimits interrogation. The superficial femoral artery is stented throughoutwith a mild >50% stenosis at mid stent. The posterior tibial artery anddorsalis pedis artery are patent with monophasic waveforms. 4. Duplex imaging of the left lower extremity shows multiphasic inflow.The profunda femoral artery is not visualized. The superficial femoral isstented proximally and distally without significant stenosis. Thepopliteal artery is stented with heavy calcifications limitinginterrogation. Large genicular collaterals are seen collateralizing flowdistally. The posterior tibial artery and dorsalis pedis artery are patentwith monophasic waveforms. COMPARISON: Compared to prior study 08/29/2024, the right NEEMA is slightly lower ontoday's exam (previously 0.74 and now 0.66). The previously documenteddistal common femoral artery lesion is poorly seen on today's exam due tocalcific shadowing. On the left, the NEEMA and TBI are improved with betterpulse volume recordings suggesting improved collateral support. NEEMA(previously 0.75 and now 0.88). FINDINGS: Right toe/brachial index indicates moderate range. Left toe/brachial index indicates mild range. +--------+ + + +------+ RIGHT Velocity cm/s PRE Phasicity Ratio Velocity cm/s Phasicity +--------+ + + +------+ GRAIN OPERATIONS MANAGER PRX 86 monophasic +--------+ + + +------+ GRAIN OPERATIONS MANAGER DST 121 stenotic +--------+ + + +------+ PFA 158 monophasic +--------+ + + +------+ SFA PRX 159 monophasic +--------+ + + +------+ SFA MID 270 125 stenotic 2.2:1 +--------+ + + +------+ SFA DST 118 monophasic +--------+ + + +------+ MAULIK PRX 45 monophasic +--------+ + + +------+ MAULIK DST 42 monophasic +--------+ + + +------+ EARLY CHILDHOOD EDUCATOR AIDE DST 56 monophasic +--------+ + + +------+ DPA 53 monophasic +--------+ + + +------+ +--------+ + + LEFT Velocity cm/s Phasicity +--------+ + + GRAIN OPERATIONS MANAGER PRX 122 multiphasic +--------+ + + GRAIN OPERATIONS MANAGER DST 135 multiphasic +--------+ + + SFA PRX 152 multiphasic +--------+ + + SFA MID 101 monophasic +--------+ + + SFA DST 65 monophasic +--------+ + + MAULIK DST 120 multiphasic +--------+ + + EARLY CHILDHOOD EDUCATOR AIDE DST 29 monophasic +--------+ + + DPA 52 monophasic +--------+ + + Criteria: Stenosis V. Ratio Mild <50% <2.0 Moderate 50-74% > or = 2.0 Severe 75-99% > or = 4.0 Occluded 100% no detectable flow Pressures +-----+ +--------+ +-----+ RIGHT (mmHg) LEFT (mmHg) +-----+ +--------+ +-----+ Index 120 Brachial 120 Index +-----+ +--------+ +-----+ EARLY CHILDHOOD EDUCATOR AIDE 94 0.78 +-----+ +--------+ +-----+ 0.66 79 DPA 105 0.88 +-----+ +--------+ +-----+ 0.45 54 Digit 1 60 0.50 +-----+ +--------+ +-----+ STENT Stent Location Right: SFA. + + + +--------+-----+ RIGHT Velocity cm/s Phasicity Stenosis Ratio + + + +--------+-----+ PRE Stent 101 monophasic + + + +--------+-----+ PRX Stent 159 monophasic + + + +--------+-----+ 125 monophasic + + + +--------+-----+ MID Stent 270 stenotic >50% 2.2:1 + + + +--------+-----+ DST Stent 118 monophasic + + + +--------+-----+ POST Stent 155 monophasic + + + +--------+-----+ Stent Location Left: SFA prox. + + + +--------+-----+ LEFT Velocity cm/s Phasicity Stenosis Ratio + + + +--------+-----+ PRE Stent 135 multiphasic + + + +--------+-----+ PRX Stent 152 multiphasic + + + +--------+-----+ MID Stent 101 monophasic + + + +--------+-----+ DST Stent 88 monophasic + + + +--------+-----+ POST Stent 84 monophasic + + + +--------+-----+ Stent Location Left #2: D.SFA to Pop artery. + + + +--------+-----+ LEFT Velocity (cm/s) Phasicity Stenosis Ratio + + + +--------+-----+ PRE Stent 52 monophasic + + + +--------+-----+ PRX Stent 65 monophasic + + + +--------+-----+ MID Stent 89 monophasic + + + +--------+-----+ DST Stent 120 monophasic + + + +--------+-----+ POST Stent 100 monophasic + + + +--------+-----+ Mychal Saeed MD. Electronically signed on 12/20/2024 6:40:27 AM This study was performed and interpreted by a service accredited by theIntersocietal Accreditation Commission (IAC/Vascular),[email or web address] Report generated by [employer]. Final us Walter Brown MD Final Result * SCAN-COLONOSCOPY (12/14/2024 7:30 AM CDT) Narrative Procedure Note Kendrick Jerez, - 12/14/2024 6:34 AM CDT [facility] [address] [address], [address], [place] [address] Patient Name: Brandi Garrett Gender: Male Exam Date: 12/14/2024 Visit Number: [id number] Age: 74 Years Date of : 1950 Attending MD: Kendrick Jerez DO Medical Record#: [id number] Procedure: Colonoscopy Indications: Iron deficiency anemia Referring MD: Referral Self Primary MD: Anette Mancuso PAC Medications: Admitting Medications: 0.9% Normal Saline at [facility] Intra Procedure Medications: Patient received monitored anesthesia care. Complications: No immediate complications Procedure: An examination of the heart and lungs was performed and found to be withinacceptable limits. . The patient was therefore deemed a reasonablecandidate for endoscopy and sedation. The risks and benefits of the procedure were explained to thepatient.After obtaining informed consent, the patient received monitoredanesthesia care and I passed the scope without difficulty via the rectum to the ileum. The appendiceal orificeand ic valve were identified. The scope was retroflexed during theexamination The quality of the prep was good (Miralax/Gatorade/2 tabletsBisacodyl/Magnesium Citrate). This was a complete examination throughout the entire colon. Findings: Normal finding. Location - ileum. Polyp location: ascending colon. Quantity: 1. Size: 8 mm. Polypshape: sessile. Maneuver: polypectomy was performed with a cold snare and hemoclip x1. Removal: complete. Retrieval: complete. Bleeding: none. Diverticulosis. Location: - sigmoid. Description: mild. Size:medium. Quantity: several. No inflammation present. Anal canal: internal hemorrhoid(s) Remainder of the exam is normal. Impression: Colorectal polyp detected on colonoscopy Diverticulosis of colon without diverticulitis Hemorrhoids, internal MD impression comments: Minor amount of inflammation noted in the rectumwhich could either be prep related or radiation associated vascularectasia secondary to patient's prior history of prostate radiation. Givenaspirin and Plavix use would consider Carafate enemas as first-linetreatment if patient develops any evidence of rectal bleeding. Preliminary Plan: The patient and their physician will receive a copy of the pathologyreport as well as pathology-based recommendations for future screening orsurveillance. Comments: Suspect 5 years, recommend shared decision making Antiplatelets/Anticoagulants: Clopidogrel (Plavix). Last dose: Today. Restart. Date: 12/14/2024 Recommendation Comments: To reduce post-polypectomy bleeding, recommendno NSAIDs (i.e. Aleve, Advil, ibuprofen, naproxen, etc.) for 10 days. Toreduce hemorrhoid bleeding, recommend increasing soluble fiber in yourdiet or by using kvyu-hai-dukmfln fiber supplements such as Citrucel,Metamucil, or psyllium (take as directed). Avoid straining during bowelmovements and prolonged time spent on the commode. Small amount oferythema in the rectum likely secondary to the prep versus radiationassociated vascular ectasia. Procedure: Upper GI Endoscopy Indications: Iron Deficiency Anemia Provider: Kendrick Jerez DO Referring MD: Referral Self Primary MD: Anette Mancuso PAC Medications: Admitting Medication: 0.9% Normal Saline at [facility] Intra Procedure Medications: Patient received monitored anesthesia care. Complications: No immediate complications Procedure: An examination of the heart and lungs was performed within acceptablelimits. . The patient was therefore deemed a reasonable candidate forsedation. The risks and benefits were explained to the patient, who appeared tounderstand. After obtaining informed consent, the scope was passed underdirect vision. Throughout the procedure the patient's blood pressure,pulse and oxygen saturations were monitored. The scope was introducedthrough the mouth and advanced to the second portion of duodenum. Findings: Esophagus: The z-line is 38 centimeters from the incisors. Top of the gastric foldsis 38 centimeters from the incisors. Esophagitis. Location - distal esophagus. Description . LAClassification - Grade A. Stomach: The diaphragm hiatus is at 38 centimeters from the incisors. Gastritis. Location - antrum. Description - patchy. Biopsy taken atantrum, body. Stomach erosion. Size - 3 mm. Number - few. Location - pyloric. Stomach Polyp(s). Location: cardia. Quantity: few. Size: 5 mm. Shape:skip. Duodenum: Normal duodenum. Impression: Erythematous gastropathy Gastric erosion, unspecified chronicity Gastric polyps Preliminary Plan: Antiplatelets/Anticoagulants: Clopidogrel (Plavix). Last dose: Today. Restart. Date: 12/14/2024 Recommendation Comments: Suspect that the iron deficiency anemia iscoming from the gastric erosions noted in the pylorus. Biopsies wereobtained for underlying H. pylori. I recommend a 6-week course ofpantoprazole 40 mg twice daily given patient's Plavix use. Recommendavoiding NSAIDs (i.e. Aleve, Advil, ibuprofen, naproxen). Pathology Results: A: STOMACH, BIOPSY: 1. Reactive gastropathy, endoscopically erosive (see comment) a. Sampling: Antral and body mucosae b. Distribution: Antral mucosa 2. Negative for inflammation, atrophy and Helicobacter B: COLON, ASCENDING, POLYP: 1. Sessile serrated adenoma 2. Negative for overt dysplasia 3. Per the colonoscopy report: a. Polyp size: 8 mm b. Resection: Complete c. Retrieval: Complete COMMENTS A. The likely etiology is an ongoing non-inflammatory type mucosal injurydue to a chemical type of injury; this may be due to ingestion ofnon-steroidal anti-inflammatory drugs, aspirin (via prostaglandin-mediatedinjury), excess alcohol, corticosteroids, or bile/alkaline reflux, thelatter usually in the setting of a gastroenteric anastomosis. MICROSCOPIC A: Performed B: Performed Electronically signed by: Brandi Guzman MD Interpreted at [facility], [address] [place] [id number] Final Plan: Repeat colonoscopy in 5 years. We will attempt to contact you at appropriate intervals via U.S. mail. Wemay not be able to find you or contact you at that time, therefore youshould know that the responsibility for following our recommendation restswith you. If you don't hear from us at the time your procedure is due,please contact our office to schedule an appointment. If your contactinformation should change, please contact our office so that we can updateyour record. Additional Comments: Avtar Livingston, continue to avoid NSAIDs (i.e. Aleve, Advil, ibuprofen, naproxen)as able. Continue the pantoprazole 40 mg twice daily. We can discuss yourbiopsy results at your office visit coming up. Again, thank you for theopportunity to participate in your healthcare and please contact ouroffice should you have any questions or concerns ([phone] ext.[phone]). _Electronically signed by: Kendrick Jerez DO 12/14/2024 cc: Anette Mancuso PAC us Kendrick Jerez DO OTHER Fin al Result * ANTI HCV (12/25/2021 2:47 PM CDT) HEPATITIS C ANTIBODY Non-React tobi Non-React tobi 12/26/2021 3:57 AM CDT [facility] Comment:Antibodies to HCV no t detected; does not exclude the possibility of exposure to HCV. Blood BLOOD SPECIMEN / Unknown Venipuncture / Unknown 12/25/2021 2:47 PM CDT 12/25/2021 2:47 PM CDT us Jayde JEFFREY SEND OUTS Final Resu lt [facility] 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 Healthcare Directive 08/24/2019 12:00 AM H ealth Care and Mental Health Care POA - 08/24/2019 Healthcare Directive 08/24/2019 LIVING WILL, 08/24/2019 * Full Code (Latest Code Status on File) Date Activated Date Inactivated Comments 02/02/2025 6:35 AM 02/06/2025 12:05 PM Question Answer Comments Code Status Discussion: Reviewed Preferences * Full Code Date Activated Date Inactivated Comments 09/18/2023 11:37 [...] Comments 02/26/2016 5:11 PM 02/26/2016 9:34 PM Care Teams Metropolitan Editor Relationship Specialty Start Date End Date Anette Mancuso PA [address] [place] [address] PCP - General Physician Bookmobile Librarian 09/11/22 Carol Dubon, WASH OIL PUMP OPERATOR [address] [place] [address] Oncology 01/04/25 Madonna Solis MD [address] [place] [address] Oncology 01/04/25
--- OUTSIDE RECORDS SUMMARY | 2025-02-07 16:23 | XMS_ITS | Clinical Summary ---
Author Organization [facility] Address [address] [place] [address] Care Team Providers Care Manager Entry Name Role Phone Unavailable Primary Care Provider Unavailabl e Source Comments Patient records contain information from all sites at [facility]. For routine questions regarding patient records, call [phone] during business hours, M-F 8:00 AM - 5:00 PM Central Time. Record requests for emergency care only can be directed to [phone] at any time.[facility] Allergies Active Allergy Reactions Criticality Noted Date Comments Adhesive Rash 07/10/2022 Medications * This document contains information received from the source organization and may not represent a complete record from that organization. hydroCHLOROthia zide (HYDRODIURIL) 25 mg tablet Take 25 mg by mouth daily. Active folic acid/multivit-m in/lutein (CENTRUM SILVER ORAL) Take 1 tablet by mouth daily. Active vardenafil (LEVITRA) 20 mg tablet Take 20 mg by mouth daily as needed for erectile dysfunction. Active omeprazole (PriLOSEC) [address] capsule Take 2 capsules (40 mg total) by mouth every morning before breakfast. 60 capsule Active Additional Information Patient taking differently: 20 mgoral Daily before morning meal, Reported on 06/05/[address] tablet Take 1 tablet (81 mg total) by mouth daily. 10 tablet 1 Active iron,carbonyl-v itamin C (Vitron-C) 65 mg iron- [address] tablet Take 65 mg by mouth daily. 2 Active lisinopriL (PRINIVIL,ZESTR IL) 10 mg tablet Take 10 mg by mouth daily. 2 Active naproxen (NAPROSYN) 500 mg tablet TAKE 1 TABLET (500 MG) BY MOUTH TWICE A DAY WITH MEALS 3 Active fluticasone propionate (FLONASE) 50 mcg/actuation nasal spray 3 Active ketoconazole (NIZORAL) 2 % shampoo ketoconazole 2 % shampoo APPLY TO THE AFFECTED AREA(S), LATHER, AND THEN RINSE OFF WITH WATER BY TOPICAL ROUTE 1-2 times a week. Active rosuvastatin (CRESTOR) 40 mg tablet Take 1 tablet (40 mg total) by mouth daily. 30 tablet 11 3 Active cyanocobalamin (VITAMIN B12) 1,000 mcg tablet Take 1,000 mcg by mouth. 3 Active clopidogreL (Plavix) 75 mg tablet Take 75 mg by mouth daily. 4 Active ezetimibe (Zetia) 10 mg tablet Take 10 mg by mouth daily. 4 Active calcium carbonate-vitam in D3 (Calcium 500 + D) 1,250 mg (500 mg calcium)-10 mcg (400 Unit) per chewable tablet calcium carbonate-vitami n d3 completed Active gabapentin (Neurontin) 100 mg capsule Take 100 mg by mouth 3 (three) times a day. Active nitroglycerin (Nitrostat) 0.[address] 1 Tablet (0.4 mg) under the tongue every 5 minutes if needed for Chest Pain. If patient requesting >25 doses in 30D, to provider to authorize 4 Active oxyCODONE (Roxicodone) 5 mg immediate release tablet Take 5 mg by mouth every 4 (four) hours as needed. 4 Active ranolazine (Ranexa) 500 mg 12 hr tablet Take 500 mg by mouth 2 (two) times a day. 4 Active sennosides-docu sate sodium (Senokot-S) 8.6-50 mg per tablet Take 2 tablets by mouth at bedtime. 4 Active tamsulosin (Flomax) 0.4 mg 24 hr capsule Take 2 capsules (0.8 mg total) by mouth daily. 60 capsule 11 5 Active Active Problems Problem Noted Date Diagnosed Date Primary Malignant Neoplasm Of Prostate 3 Cancer Staging:Clinical stage from 06/11/2022:Stage IIC(cT2c, cN0, cM0, PSA: 8.1, Grade Group: 4) - Signed by Lino Bolivar M.D. on 06/11/2022 Atherosclerosis Arteriosclerosis Obliter[place] Lowe r Extremity 09/09/2020 Occlusion And Stenosis Left Carotid Artery 09/05 Hemorrhage Gastrointestinal 08/26/2020 Bleeding Gastrointestinal Obscure 08/21/2020 Anemia 08/21/2020 Hypertension Personal History 06/16/2016 Atherosclerotic Heart Diseas e Of [place] Coronary Artery Without Angina Pectoris 08/28/2005 Hyperlipidemia 08/28/2005 Coronary Artery Disease (Unspecified) 07/28/2005 Immunizations Immunization Administration Dates Next Due HZV (ZOSTAVAX) 01/24/2013 Influenza Split 01/24/2013, 2,01/24/2011,2006 PCV13 11/19/2015 Td Preservative Free (TENIVA C, DECAVAC) 07/23/2006 Tdap 08/11/2016 influenza trivalent high dos e (HD)(PF) 03/23/2016 Family History Medical History Relation Name Comments Coronary artery disease Father Nickolas Hear t attack Hypertension Mother Onelia Stroke Mother Onelia Coronary artery disease Sister 1 Richelle zhang Dementia Sister 1 Richelle zhang Diabetes Sister 1 Richelle zhang unknown cancer Sister 1 Richelle zhang Ovarian cancer Sister 2 Richelle Age 56 Prostate cancer Son Ruddy Age 45 Relation Name Status Comments Father Nickolas Mother Onelia Sister 1 Richelle zhang Alive Sister 2 Richelle Alive Sister 3 Richelle Zhang Alive Son Ruddy Alive Social History Tobacco Use Types Packs/Day Years Used Date Smoking Tobacco: Former Cigarettes 0 05/04/1979 - 02/03/2000 Cigars Smokeless Tobacco: Never Tobacco Cessation:Counseling Given: Not Answered Comments:Quit for months/years. Resume recreationally--last cigar 06/09/22 Alcohol Use Standard Drinks/Week Comments Yes 3 (1 standard drink = 0.6 oz pure alcohol) wine/beer/liquor 2 to 3 night=14 to 21 per week [facility] Utilities Answer Date Recorded In the past 12 months has e [employer], gas, oil, or water company threatened to shut off services in your home? No 09/08/2023 Humiliation, Afraid, Rape, and Kick questionnair e Answer Date Recorded Within the last year, have y ou been afraid of your partner or ex-partner? No 09/30/2022 Within the last year, have y ou been humiliated or emotionally abused in other ways by your partner or ex-partner? No Within the last year, have y ou been kicked, hit, slapped, or otherwise physically hurt by your partner or ex-partner? No 09/30/2022 Within the last year, have y ou been raped or forced to have any kind of sexual activity by your partner or ex-partner? No 09/30/2022 Hunger Vital Sign Answer Date Recorded Within the past 12 months, y ou worried that your food would run out before you got the money to buy more. Never true 09/08/19 24 Within the past 12 months, t he food you bought just didn't last and you didn't have money to get more. Never true 09/08/2023 PRAPARE - Transportation Answer Date Re corded In the past 12 months, has l ack of transportation kept you from medical appointments or from getting medications? No 08/24 In the past 12 months, has l ack of transportation kept you from meetings, work, or from getting things needed for daily living? No 09/08/2023 Housing Stability Answer Date Recorded What is your living situation today? I have a [facility] place to live 09/08/2023 Education Answer Date Recorded What is the highest level of school you have completed or the highest degree you have received? 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 on file Not on file Not on file Last Filed Vital Signs Vital Sign Reading Time Taken Comments Blood Pressure 115/69 09/11/2024 2:54 PM CDT Pulse 69 09/11/2024 2:54 PM CDT Temperature 36.4 C (97.6 F) 09/11/2024 2:54 PM CDT Respiratory Rate 14 11/23/2023 1:23 PM CDT Oxygen Saturation 97% 12/29/2022 12:36 PM CDT Inhaled Oxygen Concentration - - Weight 85.9 kg (189 lb 6 oz) 09/11/2024 2:54 PM CDT Height 172.9 cm (5' 8.07) 10/07/2022 12:57 PM C DT Body Mass Index 28.73 10/07/2022 12:57 PM CDT Plan of Treatment Upcoming Encounters Date Type Department Care Team (Late st Contact Info) Description 03/14/2025 9:30 AM MST Appointment Department of Laboratory Medicine and Pathology, [facility], in [place], [place] [address] [place] [address] Ekaterina Padilla APRN, C.N.P., D.N.P. [address] [place] [phone] Health Maintenance Due Date Last Done Comments Office Visit for Blood Pressure Check / Re-check 1950 Depression Screening (Annual PHQ-2) 04/26/2024 Fall Risk Screen (Annual) 04/26/2024 COVID-19 Vaccine ( season) 2024 04/23/2022, 10/11/2021, 02/02/2021, Additional history exists Creatinine Level (Kidney Function Test) 02/05/2026 02/05/2025, 02/03/2025, 02/02/2025, Additional history exists Potassium Level 02/05/2026 02/05/2025, 01/24, 02/02/2025, Additional history exists Sodium Level 02/05/2026 02/05/2025, 01/24, 02/02/2025, Additional history exists DTaP,Tdap,and Td Vaccines (2 - Td or Tdap) 08/11/2026 08/11/2016, 07/23/2006, 06/10/2005 Pneumococcal vaccine (50+ years) Completed 11/19/2015, 11/19/2015, 02/26/2014 Abdominal Aortic Aneurysm (AAA) Screen Discontinued 12/11/2015 Hepatitis C Screening Completed 08/11/2016 Zoster Vaccines Completed 04/14/2021, 11/25, 02/22/2013, Additional history exists RSV vaccine - (32-36 weeks) or 50+ years Completed 01/28/2024 Colonoscopy Discontinued 12/14/2024, 07/2020, 08/23/2020, Additional history exists Colorectal Cancer Screening Discontinued Colorectal Cancer Surveillance Discontinued Influenza Vaccine Completed 12/24/2024, , 01/06/2023, Additional history exists CT Colonography Discontinued CT Colonography Discontinued Cologuard Discontinued FIT Discontinued HPV Vaccines Aged Out No longer eligi ble based on patient's age to complete this topic IPV Vaccines Aged Out No longer eligi ble based on patient's age to complete this topic Medical Devices Implanted Type Area Aids Nurse Device Identifier Shelf Expiration Date Model / Serial / Lot [facility] [employer] Endo 235 - [id number] Implanted:Qty: 1 on 08/27/2020 by José Miguel Gutierrez M.D. at [facility] Hardware e.g. pins/screw s/rods [employer] [id number] 05/19/2023 [id number] Clp [facility]sp [facility] Endo 235 - [id number] Implanted:Qty: 1 on 08/27/2020 by José Miguel Gutierrez M.D. at [facility] Hardware e.g. pins/screw s/rods [employer] [id number] 02/22/2023 [id number] 6 Clp [facility] [employer] Endo 235 - [id number] Implanted:Qty: 1 on 08/27/2020 by José Miguel Gutierrez M.D. at [facility] Hardware e.g. pins/screw s/rods [employer] [id number] 02/22/2023 [id number] 6 J J Sig Fem Lugged Sz 5.0 Rt - [place] [id number] Implanted:Qty: 1 on 06/18/2006 Knee Implant Other/Legacy - See Implant Description [employer] Description:Device Manufactu rer - J [employer] J Orth[employer]. Body Location - Other. Right. Device Status Text - [id number] [id number]. Depuy-Tib Tray Mod Cement Cocr Sz4 - [place] [id number] Implanted:Qty: 1 on 06/18/2006 Knee Implant Other/Legacy - See Implant Description [employer] Description:Device Manufactu rer - J [employer]. Body Location - Other. Right. Device Status Text - [id number] [id number]. J J Patella Rev Round 35m - [place] [id number] Implanted:Qty: 1 on 06/18/2006 Knee Implant Other/Legacy - See Implant Description [employer] Description:Device Manufactu rer - J [employer] J Orth[employer]. Body Location - Other. Right. Device Status Text - KNEE [id number]. Depuy-Insert Stabilized Sz 4 15mm - [place] [id number] Implanted:Qty: 1 on 06/18/2006 Knee Implant Other/Legacy - See Implant Description [employer] Description:Device Manufactu rer - J [employer] J Orth[employer]. Body Location - Other. Right. Device Status Text - KNEE [id number]. Cement Bone Large - [place] [id number] Implanted:Qty: 2 on 06/18/2006 Misc Other Selina Description:Device Manufactu rer - Rowan Holden.. Device Status Text - [id number]. Conversions - Default Historical Implant Device Implanted:07/25 (Quantity not on file) Vascular Stent Left: Iliac Crest Description:Body Location - Iliac L. iliac R. Device Status Text - Vascular. Procedures Procedure Name Priority Date/Time Associated Diagnosis Comments BASIC METABOLIC PANEL, S/P Routine 10/07/2022 8:00 AM CDT Peripheral Arterial Disease (HCC) COLONOSCOPY Routine 08/27/2020 12:27 PM CDT HCV AB SCRN W/REFLEX TO HCV PCR, S Routine 08/11/2016 6:53 AM CDT from Last 3 Months or Most Recently Relevant to Health Maintenance Results * Colonoscopy (08/27/2020 12:27 PM CDT) Anatomical Region Laterality Modality Other 08/27/2020 12:2 7 PM CDT Impressions 08/27/2020 1:40 PM CDT Post-op Diagnoses: - within the proximal ascending colon, at the site of prior thermal therapy, was a rectangular shaped ulceration. Within the center of the ulceration, was exposed visible vessel, that was raised above the base of the ulcer. The small most assuredly accounts for the recent episodes of hematochezia. Three hemoclips were placed, closing the ulcer base in a zipper like fashion. No bleeding occurred during the period of intervention. - No specimens collected. Narrative 08/27/2020 1:40 PM CDT [facility] Patient Name: Miki Zhang Date of : 1950 Age: 70 Gender: Male Procedure Date: 08/27/2020 Procedure: Colonoscopy Providers: José Miguel Gutierrez MD, Daniel Walton (Fellow) Referring Provider: Betty Goddard Pre-op Diagnoses: Hematochezia Recommendation: - We would suggest the patient be clinically observed. Findings: A single (solitary) ten mm ulcer was found in the proximal ascending colon. No bleeding was present. Stigmata of recent bleeding were present. To prevent bleeding [Reason for Clip], [Clip Device] [MRI Compatibility]. [Bleeding present]. For hemostasis, three hemostatic clips were successfully placed (MR conditional). There was no bleeding during, or at the end, of the procedure. Procedural Details: The patient was seen, evaluated, history reviewed, airway and heart-lung exams were performed by licensed provider and were satisfactory for planned level of sedation care. The risks, benefits and alternatives for the procedure and sedation were discussed and informed consent was obtained. A procedural pause was conducted in the presence of assisting personnel to verify the correct patient identity and procedure to be performed. Throughout the procedure, the patient's blood pressure, pulse, and oxygen saturations were monitored continuously. The Colonoscope was introduced under direct vision through the anus and advanced to the cecum, identified by appendiceal orifice and ileocecal valve. The colonoscopy was performed without difficulty. The patient tolerated the procedure well. The quality of the bowel preparation was good. The quality of the bowel preparation was evaluated using the BBPS (Clubb Bowel Preparation Scale) with scores of: Right Colon = 3, Transverse Colon = 3 and Left Colon = 3 (entire mucosa seen well with no residual staining, small fragments of stool or opaque liquid). The total BBPS score equals 9. Estimated Blood Loss: Estimated blood loss: none. Complications: No immediate complications. Sedation: Anesthesia was administered by an anesthesia professional. The following parameters were monitored: oxygen saturation, heart rate, blood pressure, respiratory rate, EKG, adequacy of pulmonary ventilation, and response to care. Attending Participation: I was present and participated during the entire procedure, including non-verduzco portions. José Miguel Gutierrez MD 08/27/2020 1:40:12 PM This report has been signed electronically. Number of Addenda: 0 Betty Goddard M.D. GI PROCEDURE ORDERABLES Final Result * HCV AB Scrn w/Reflex to HCV PCR, S (08/11/2016 6:53 AM CDT) HCV Ab Screen, S Negative Negative [facility] Comment:[id number] rat io is <1.00. 08/11/2016 6:53 AM CDT 08/11/2016 6:53 AM CDT Anjelcia Urban APRN, C.N.P. 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 See document viewer. * Full Code (Latest Code Status on File) Date Activated Date Inactivated Comments 08/26/2020 12:20 AM 08/28/2020 1:28 PM Question Answer Comments Full Code: Discussed Healthcare Agents on File Name Relationship Healthcare Agent Relationshi p Communication Dakota Zhang Son Health Care Agent Tiffanie Bess Daughter First Alternate Health Care Agent
--- OUTSIDE RECORDS SUMMARY | 2025-02-07 16:23 | XMS_ITS ---
Author Organization [facility] Address [address] [place] [id number] Care Team Providers Care Materials Planner Name Role Phone Unavailable Primary Care Provider Unavailabl e Active Problems * This document contains information received from the source organization and may not represent a complete record from that organization. Problem Noted Date Diagnosed Date Primary Malignant [...] History 06/16/2016 Atherosclerotic Heart Diseas e Of [place] Coronary Artery Without Angina Pectoris 08/28/2005 Hyperlipidemia 08/28/2005 Coronary Artery Disease (Unspecified) 07/28/2005 Current Treatment and Therapy Plans No current plan information found. Past Treatment and Therapy Plans Hem/Onc Therapy Plan 1 Plan Name Start Date Discontinue Date Treatment Medications Discontinue Reason Plan Provider Leuprolide Acetate Every 24 Weeks 06/16/2023 09/14/2023 No medications scheduled. Amendment Change Lino Bolivar M.D. Leuprolide Acetate Every 24 Weeks 06/16/2023 06/15/2023 No medications scheduled. Unlisted Ekaterina Padilla APRN, Ty.N.P., D.N.P. LEUPROLIDE ACETATE EVERY 24 WEEKS 07/10/2022 12/29/2022 No medications scheduled. Therapy Complete Lino Bolivar M.D. LEUPROLIDE ACETATE EVERY 24 WEEKS 06/30/2022 07/07/2022 No medications scheduled. Patient Preference Lino Bolivar M.D. Hem/Onc Therapy Plan 2 Plan Name Start Date Discontinue Date Treatment Medications Discontinue Reason Plan Provider Leuprolide Acetate Every 4 Weeks 11/23/2023 11/23/2023 No medications scheduled. Therapy Complete Ekaterina Padilla APRN, C.N.P., D.N.P. Leuprolide Acetate Every 24 Weeks 12/29/2022 12/29/2022 No medications scheduled. Therapy Complete Arnel Sheth M.D. Past Radiation Episodes * IMRT: ProstateOverview* First Treatment Date Last Treatment Date Treatment Site Technique Goal Episode Provider 08/03/2022 09/07/2022 Prostate IMRT Curative * Linked Problems Primary Malignant Neoplasm O f Prostate Treatment Courses* Course [id number] 08/03/2022 - 09/07/2022 Treatment Period Fraction Dose Fractions Total Dose Plans Planned [id number] 08/03/2022 - 09/07/2022 270 cGy 7 ,020 cGy Reference Points Delivered [id number] 08/03/2022 - 09/07/2022 7,020 cGy
--- OUTSIDE RECORDS SUMMARY | 2025-02-07 16:23 | XMS_ITS | Clinical Summary ---
Author Organization [facility] Address [address], [place] [address] Care Team Providers Care Wood Miller Name Role Phone Ekaterina Latham PA-C Primary Care Provider Source Comments You are receiving this document as you are listed as the primary care provider,follow-up provider, or the patient has been referred to you for consultation.This is in compliance with the Medicare and[facility] EHR Incentive Program,which states Providers who transition their patient to another setting of careor provider of care or refers their patient to another provider of care shouldprovide summary care record for each transition of care or referral. [facility] Allergies No known active allergies Medications unknown medication Indications: PN: 0 Active hydrochlorothia zide (AKA HYDRODIURIL) 25 MG tablet Take 1 tablet by mouth daily (every 24 hours). LW Comment:Rx Future Refill-Pt will call LW Addl Instr:FAX TO [facility] Indicated for: High Blood Pressure 90 3 0 Active Vardenafil HCl (AKA LEVITRA) 10 MG tablet Take 1 tablet by mouth as needed. LW Addl Instr:Take 1 hour prior to sexual activity. Maximum 1 tablet/24 hours. Indicated for: Erectile Dysfunction 18 3 0 Active nitroglycerin (AKA NITROSTAT) 0.[address] 1 tablet under the tongue as needed. LW Addl Instr:May repeat every 5 minutes for a total of three tablets. Indicated for:Angina 25 1 0 Active NIACIN ER OR Take 1 tablet by mouth nightly. LW Comment:Rx Future Refill-Pt will call LW Addl Instr:FAX TO [facility]. Do not cut/crush/chew. Take with food. Indicated for: High Cholesterol 90 3 0 Active ezetimibe (AKA ZETIA) 10 MG tablet Take 1 tablet by mouth nightly. LW Comment:Rx Future Refill-Pt will call LW Addl Instr:FAX TO [facility] Indicated for: High Cholesterol 90 3 0 Active aspirin 81 MG tablet Take 1 tablet by mouth daily (every 24 hours). 3 0 Active Multiple Vitamins-Minera ls (MULTIVITAMIN OR) Take 1 tablet by mouth daily (every 24 hours). 13 9 Active rosuvastatin (AKA CRESTOR) 40 MG tablet Take 40 mg by mouth daily (every 24 hours). 3 Active Active Problems Problem Noted Date Diagnosed Date Psychosocial stressors 06/17/2009 Overview (12/16/2016): LW Modifier: AD sent to [facility] 06/17/09 ; Advanced Directive Issues Counseling Old myocardial infarction 11/09/2008 Overview (12/16/2016): LA Old Essential hypertension 11/09/2008 Overview (12/16/2016): Hypertension Osteoarthritis 08/06/2006 Overview (12/16/2016): DJD Hyperlipidemia 08/06/2006 Coronary atherosclerosis 08/06/2006 Overview (12/16/2016): Arteriosclerotic Heart Disease Immunizations Immunization Administration Dates Next Due Flu Vac Preserv Free (3+yrs) 01/24/2009,02/25/20 08,03/14/2007 H1n1 Miv Sanofi 6-35 Mo (Injected) 04/26/2009 Td 06/10/2005 Family History Relation Name Status Comments Other 1 Other 2 Social History Tobacco Use Types Packs/Day Years Used Date Smoking Tobacco: Former Cigarettes 2 20 1 - 02/17/1996 Smokeless Tobacco: Never Comments:Quit smoking: quit 17 yrs ago Alcohol Use Standard Drinks/Week Comments Yes 3 (1 standard drink = 0.6 oz pure alcohol) Alcoholic Drinks/day: Amount:1-2 drinks; Freq:=> 4/week ; Sex and Gender Information Value Date Recorded Sex Assigned at Not on file Legal Sex Male 11:09 PM CDT Gender Identity Not on file Sexual Orientation Not on file Last Filed Vital Signs Vital Sign Reading Time Taken Comments Blood Pressure 122/70 06/17/2009 8:09 AM SPOON MAKER Pulse 68 06/17/2009 8:09 AM SPOON MAKER Temperature 36.4 C (97.5 F) 11/09/2008 10:58 AM CDT ORAL C: 36.4 C Respiratory Rate 16 06/01/2008 5:07 PM SPOON MAKER Oxygen Saturation - - Inhaled Oxygen Concentration - - Weight 83.9 kg (184 lb 15.8 oz) 06/17/2009 8:09 AM SPOON MAKER C: 83.9kg Height 174 cm (5' 8.5) 06/17/2009 8:09 AM SPOON MAKER C: 174.0cm Body Mass Index 27.72 06/17/2009 8:09 AM SPOON MAKER Plan of Treatment Health Maintenance Due Date Last Done Comments Hep C Screening (Preventive Services) 1950 Medicare Annual Wellness Visit 1950 Zoster/Shingles Vaccine (2 of 3) 04/19/2013 02/22/2013 RSV Vaccine (1 - 1-dose 75+ series) 2023 COVID-19 Vaccine (1 - 2023- season) 2024 Influenza Vaccine (#1) 2024 9, 02/25/2008, 03/14/2007 DTaP/Tdap/Td Vaccine (2 - Tdap) 08/11/2026 08/11/2016, 07/23/2006, 04/25/2006, Additional history exists Cholesterol Discontinued 06/12/2009, 10/24, 03/14/2007 Pneumococcal Vaccine 50+ Yrs Completed 11/19/2015, 02/26/2014 HepA Vaccine Aged Out No longer eligi ble based on patient's age to complete this topic HepB Vaccine Aged Out No longer eligi ble based on patient's age to complete this topic Hib Vaccine Aged Out No longer eligi ble based on patient's age to complete this topic IPV (Polio) Vaccine Aged Out No longe r eligible based on patient's age to complete this topic MCV4 Vaccine Aged Out No longer eligi ble based on patient's age to complete this topic Meningococcal B Vaccine Aged Out No l onger eligible based on patient's age to complete this topic Procedures Procedure Name Priority Date/Time Associated Diagnosis Comments LIPID PANEL & DIRECT LDL (IF NEEDED) Routine 06/12/2009 7:50 AM SPOON MAKER from Last 3 Months or Most Recently Relevant to Health Maintenance Results * Lipid Panel and Direct LDL(If Needed) (06/12/2009 7:50 AM SPOON MAKER) Hours Fasting 12.0 Hours HP CONVERSION Cholesterol/HDL Ratio Screen 2.7 No normal range HP CONVERSION Cholesterol 155 <200 mg/dL HP CONVERSION HDL Cholesterol 57 >40 mg/dL HP CONVERSION Triglycerides 121 0 - 149 mg/dL HP CONVERSION LDL Calculated 74 0 - 130 mg/dL HP CONVERSION Comment: 06/12/2009 7:50 AM SPOON MAKER Frank Foy MD LAB_1 Final Result HP CONVERSION from Last 3 Months or Most Recently Relevant to Health Maintenance Insurance MEDICARE MANAGED CARE [facility] [place] [id number] Advance Directives Documents on File Type Date Recorded 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
--- OUTSIDE RECORDS SUMMARY | 2025-02-07 16:23 | XMS_ITS | Encounter Summary ---
Author Organization [facility] Address [address] [place] [id number] Care Team Providers Care Construction Services Technician Name Role Phone Unavailable Primary Care Provider Unavailabl e Encounter Details Date Type Department Care Team (Latest Contact Info) Description 06/02/2023 Orders Only Central Appointment Office in [place], [place] [address] [place] [address] [facility], Provider, Arteriosclerotic Heart Disease Social History Tobacco Use Types Packs/Day Years Used Date Smoking Tobacco: Former Cigars Smokeless Tobacco: Never Comments:Quit for months/yea rs. Resume recreationally--last cigar 06/09/22 Alcohol Use Standard Drinks/Week Comments Yes 3 (1 standard drink = 0.6 oz pure alcohol) wine/beer/liquor 2 to 3 night=14 to 21 per week Humiliation, Afraid, Rape, and Kick questionnair e [...] the money to buy more. Never true 10/01/19 23 Within the past 12 months, t he food you bought just didn't last and you didn't have money to get more. Never true 09/30/2022 PRAPARE - Transportation Answer Date Re corded In the past 12 months, has l ack of transportation kept you from medical appointments or from getting medications? No 10/2022 In the past 12 months, has l ack of transportation kept you from meetings, work, or from getting things needed for daily living? No 09/30/2022 Housing Stability Answer Date Recorded What is your living situation today? I have a [employer] place to live 09/30/2022 Education Answer Date Recorded What is the highest level of school you have completed or the highest degree you have received? 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 [address] [place] [phone] documented as of this encounter Visit Diagnoses Diagnosis Arteriosclerotic Heart Disease documented in this encounter
--- OUTSIDE RECORDS SUMMARY | 2025-02-07 16:23 | XMS_ITS | Clinical Summary ---
Author Organization [facility] Address [address] [facility] [place] [address] Care Team Providers Care Brine Mixer Operator Name Role Phone Anette Mancuso Primary Care Provider [phone] Allergies No known active allergies Medications clopidogrel (PLAVIX) 75 MG tablet Take 75 mg by mouth daily. 09/18/2023 Active cyanocobalamin (VITAMIN B-12) 1000 MCG tablet Take 1,000 mcg by mouth daily. 01/17/2024 Active ezetimibe (ZETIA) 10 MG tablet Take 1 tablet by mouth daily. 01/17/2024 Active gabapentin (NEURONTIN) 100 MG capsule Take 100 mg by mouth 3 times daily. 01/11/2024 Active Elemental iron 65 mg Vitamin C 125 mg (VITRON-C) 65-125 MG TABS tablet Take 1 tablet by mouth daily. 01/17/2024 Active lisinopril (ZESTRIL) 10 MG tablet Take 1 tablet by mouth daily. 01/17/2024 Active nitroGLYcerin (NITROSTAT) 0.[address] 0.4 mg under the tongue every 5 minutes as needed for chest pain. 01/17/2024 Active omeprazole (PRILOSEC) [address] capsule Take 20 mg by mouth daily. 01/17/2024 Active rosuvastatin (CRESTOR) 40 MG tablet Take 40 mg by mouth daily. 01/17/2024 Active tamsulosin (FLOMAX) 0.4 MG capsule Take 0.4 mg by mouth daily. Active hydrochlorothiaz kailee (HYDRODIURIL) 25 MG tablet Take 25 mg by mouth daily. Active multivitamin (CENTRUM SILVER) tablet Take 1 tablet by mouth daily. Active oxyCODONE (ROXICODONE) 5 MG tabletIndication s:S/P revision of total knee, right Take 1 tablet (5 mg) by mouth every 4 hours as needed for severe pain. 40 tablet 09/22/2024 Active acetaminophen (TYLENOL) 325 MG tabletIndication s:S/P revision of total knee, right Take 3 tablets (975 mg) by mouth every 8 hours. 90 tablet 09/22/2024 Active aspirin (ASA) 81 MG EC tabletIndication s:VTE Prophylaxis Take 1 tablet (81 mg) by mouth 2 times daily. 70 tablet 09/22/2024 Active famotidine (PEPCID) 20 MG tabletIndication s:S/P revision of total knee, right Take 1 tablet (20 mg) by mouth 2 times daily. 40 tablet 09/22/2024 Active hydrOXYzine HCl (ATARAX) 10 MG tabletIndication s:S/P revision of total knee, right Take 1 tablet (10 mg) by mouth every 6 hours as needed for other (adjuvant pain). 40 tablet 09/22/2024 Active ondansetron (ZOFRAN ODT) 4 MG ODT tabIndications:S /P revision of total knee, right Take 1 tablet (4 mg) by mouth every 6 hours as needed for nausea or vomiting. 40 tablet 09/22/2024 Active senna-docusate (SENOKOT-S/PERIC OLACE) 8.6-50 MG tabletIndication s:S/P revision of total knee, right Take 1 tablet by mouth 2 times daily. 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 No 09/21/2024 Within the past 12 months, d id the food you bought just not last and you didn t have money to get more? No 09/21/2024 Housing Stability Answer Date Recorded Do you have housing? (Lesley beebe is defined as stable permanent housing and does not include staying outside in a car, in a tent, in an abandoned building, in an overnight long term, or couch-surfing.) Yes 09/21/2024 Are you worried about losing your housing? No 09/21/2024 Financial Resource Strain Answer Date R ecorded Within the past 12 months, h ave you or your family members you live with been unable to get utilities (heat, electricity) when it was really needed? No 09/21/2024 Transportation Needs Answer Date Record ed Within the past 12 months, h as lack of transportation kept you from medical appointments, getting your medicines, non-medical meetings or appointments, work, or from getting things that you need? No 09/21/2024 Interpersonal Safety Answer Date Record ed Do you feel physically and e motionally safe where you currently live? Yes 09/21/2024 Within the past 12 months, h ave you been hit, slapped, kicked or otherwise physically hurt by someone? No 09/21/2024 Within the past 12 months, h ave you been humiliated or emotionally abused in other ways by your partner or ex-partner? 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 Gender Identity Not on file Sexual Orientation Not on file Last Filed Vital Signs Vital Sign Reading Time Taken Comments Blood Pressure 131/63 09/22/2024 7:42 AM CDT Pulse 53 09/22/2024 12:00 AM CDT Temperature 36.1 C (97 F) 09/22/2024 12:00 AM CDT Respiratory Rate 13 09/22/2024 12:00 AM CDT Oxygen Saturation 97% 09/22/2024 12:00 AM CDT Inhaled Oxygen Concentration - - Weight 83.6 kg (184 lb 3.2 oz) 09/21/2024 7:35 A M CDT Height 172.7 cm (5' 8) 08/29/2024 9:00 AM CDT Body Mass Index 28.01 08/29/2024 9:00 AM CDT Plan of Treatment Health Maintenance Due Date Last Done Comments ANNUAL REVIEW OF HM ORDERS 1950 LIPID 1950 FALL RISK ASSESSMENT 2013 PHQ-2 (once per calendar year) 2024 COVID-19 VACCINE ( season) 2024 02/03/2024, 04/23/2022, 10/11/2021, Additional history exists INFLUENZA VACCINE (#1) 2024 , 01/06/2023, 12/26/2021, Additional history exists MEDICARE ANNUAL WELLNESS VISIT 01/16/2025 01/17/2024, 01/06/2023, 12/30/2021 DTAP/TDAP/TD VACCINE (2 - Td or Tdap) 08/11/2026 08/11/2016, 07/23/2006, 04/25/2006, Additional history exists DIABETES SCREENING 09/23/2027 09/22/2024, 09/21/2024 ADVANCE CARE PLANNING 10/10/2029 10/10/2024 PNEUMOCOCCAL VACCINE 50+ YEARS Completed 11/19/2015, 11/19/2015, 02/26/2014 ZOSTER VACCINE Completed 04/14/2021, 08, 02/22/2013, Additional history exists HEPATITIS C SCREENING Completed 12/25/2021, 017 RSV VACCINE Completed 01/28/2024 HPV VACCINE (No Doses Required) Completed MENINGITIS VACCINE Aged Out No longer eligible based on patient's age to complete this topic Medical Devices Implanted Type Area Moisture Conditioner Operator Device Identifier Shelf Expiration Date Model / Serial / Lot P.F.[employer]. Sigma, Tibial Insert Fixed Bearing Stabilized, 4, 17.5 Mm Implanted:Qty: 1 on 09/21/2024 by Wes Snowden MD at [facility] Total Joint Component/ Insert Right: Knee Depuy 10/24/2027 [id number] Explanted Type Area Moisture Conditioner Operator Device Identifier Shelf Expiration Date Model / Serial / Lot Polyethylene Explanted:Qty: 1 on 09/21/2024 by Wes Snowden MD at [facility] Total Joint Component /Insert Right: Knee Procedures Procedure Name Priority Date/Time Associated Diagnosis Comments GLUCOSE Routine 09/22/2024 6:09 AM CDT from Last 3 Months or Most Recently Relevant to Health Maintenance Results * (ABNORMAL) Glucose (09/22/2024 6:09 AM CDT) Glucose 127(H) 70 - 99 mg/dL 09/22/2024 6:57 AM CDT LABORATORY Blood STRUCTURE OF RIGHT HAND / Unknown Venipuncture / Unknown 09/22/2024 6:09 AM CDT 09/22/2024 6:26 AM CDT Wes Snowden MD LAB - BLOOD ORDERABLES F inal Result LABORATORY [facility] [address] Lab (1st floor, no room number) [place] [address], [facility] from Last 3 Months or Most Recently Relevant to Health Maintenance Insurance MEDICARE MEDICARE [place] [id number] BCBS OUT OF STATE Advance Directives For more information, please contact: [phone] Documents on File Type Date Recorded Patient Burrer Marker Axle Expl anation Advance Directives and Living Will 10/10/2024 Health Care Directiv e 08-24-2019 Advance Directives and Living Will 10/10/2024 Health Care Directiv e 08-24-2019 * Full Code (Latest Code Status on File) Date Activated Date Inactivated Comments 09/21/2024 1:41 PM 09/22/2024 1:00 PM All basic an d advanced life-sustaining interventions are performed as appropriate Question Answer Comments Code status determined by: Unable to dis cuss and no AD/POLST on file; continue PREVIOUSLY ORDERED code status Healthcare Agents on File Name Relationship Healthcare Agent Relationshi p Communication [facility] Health Care Agent Tiffanie Freitas Alternate Health Care Agent Care Teams Brine Mixer Operator Relationship Specialty Start Date End Date Anette [place] [address] [place] [address] PCP - General Family Practice 08/28/24
[2025-02-07 16:26] VITALS: BP 147/78; PULSE 71; RESP 20; TEMP 36.2; O2SAT 99; BMI 27.5
--- NOTE | 2025-02-07 16:47 | ED.GENADULT ---
HPI - General Adult General Chief complaint: Lower Extremity Swelling Stated complaint: R leg swelling- post surgery Time Seen by Provider: 02/07/25 16:21 Source: patient Mode of arrival: ambulatory Limitations: no limitations History of Present Illness HPI narrative: 74-year-old male presents to the emergency department for evaluation of swelling of the right lower extremity. He underwent bilateral femoral endarterectomy 5 days ago at [facility] was complicated by acute blood loss anemia. Reports she received 4 units of packed red blood cells. He was discharged from the hospital yesterday. He has tried to be increasingly active and ambulatory, walking several laps in the hallways of his senior apartment complex last night and today. Today at noon he noticed significant swelling in his right lower extremity from the groin area to just below the right knee. He did have a right total knee arthroplasty revision 5 months ago, reports that the recovery from that has been a bit difficult but he is making good progress. He has no prior history of DVT or PE. He is taking his Plavix and aspirin as prescribed. He does not take other anticoagulants. He has noticed a little bit of swelling in the left inner thigh area as well but not nearly as much as the right side. He has no numbness or tingling in the lower extremity outside of the bilateral medial thigh which he was told would likely happen. It is symmetric. No coldness of the extremity, no signs of hemorrhage from the wound. No redness or seepage. He is otherwise feeling well with no shortness of breath, fevers or cardiac changes. Did speak with his surgeon who advised evaluation for ultrasound. Past medical history notable for peripheral vascular disease, hypertension, GERD. Medications reviewed, listed is accurate. No known drug allergies. ROS is notable for the lower extremity symptoms only, otherwise denies times 12 systems. Related Data Home Medications ?Medication ?Instructions ?Recorded ?Confirmed hydrochlorothiazide 25 mg tablet 25 mg PO DAILY 01/13/22 02/07/25 nitroglycerin 0.4 mg sublingual 0.4 mg buccal Q5M PRN 01/13/22 02/07/25 tablet omeprazole 20 mg capsule,delayed 20 mg PO DAILY 01/13/22 02/07/25 release rosuvastatin 40 mg tablet 40 mg PO DAILY 01/13/22 02/07/25 vardenafil 20 mg tablet 20 mg PO DAILY PRN 01/13/22 01/05/24 clopidogrel 75 mg tablet 75 mg PO QAM 01/05/24 02/07/25 Held on 02/07/25. Instructions: Resume on 03/01/25. Hold for 3 weeks while you are taking the Xarelto instead. Continue taking your aspirin. lisinopril 10 mg tablet 10 mg PO DAILY 01/05/24 02/07/25 tamsulosin 0.4 mg capsule 0.8 mg PO DAILY 01/05/24 02/07/25 ezetimibe 10 mg tablet 10 mg PO DAILY 02/07/25 02/07/25 gabapentin 100 mg capsule mg PO 02/07/25 oxycodone 5 mg tablet PO 02/07/25 Previous Rx's ?Medication ?Instructions ?Recorded rivaroxaban 20 mg tablet (Xarelto) 20 mg PO DAILY #20 tabs 02/07/25 Allergies Allergy/AdvReac Type Severity Reaction Status Date / Time No Known Drug Allergies Allergy Verified 01/05/24 16:20 PFSH [facility] Social History Smoking Status: Never smoker Do you use any of these nicotine containing products: None Second hand tobacco smoke exposure: No How often do you have a drink containing alcohol: 4 or more times a week How many standard drinks containing alcohol do you have on a typical day: 1 or 2 How often do you have six or more drinks on one occasion: Never AUDIT-C Alcohol total score: 4 Non-prescribed substance use: denies use service: No Exam Const: Vital Signs, click to edit/add: Vital Signs - 24 hr 02/07/25 16:26 Temperature 97.1 F L Pulse Rate [Pulse Oximeter] 71 Respiratory Rate 20 Blood Pressure [Ri ght Upper Arm] 147/78 H Pulse Oximetry 99 Oxygen Delivery Me thod Room Air Documenting provider has reviewed patient's vital signs: yes Common normals: no apparent distress General appearance: comfortable and well kempt HENMT: Common normals: normocephalic Head and scalp: normocephalic Face and sinus: normal facial exam Eye: Common normals: conjunctivae normal Conjunctiva: conjunctiva(e) normal Neck & C-Spine: General: normal visual inspection Resp: Common normals: normal respiratory effort Effort & inspection: able to speak in complete sentences Extremity: Other: Healed right total knee arthroplasty midline right knee scar. Fresh bilateral incisions along the femoral canals bilaterally. These do appear nicely closed, there is a mild associated amount of bruising bilaterally, fairly equal. No drainage, significant redness or tenderness along the incision. Moderate amount of swelling on the right, mild on the left. No bogginess or bruit. Moderate soft tissue swelling in the right thigh and right knee area but there does not seem to be an effusion in the right knee. No swelling in the popliteal fossa. There are no palpable cords in either calf. Negative Homans. Normal flexion and extension at the ankles with no effusions there either. Good pedal pulses bilaterally. Neuro: Speech: speech normal Motor exam: strength 5/5 throughout Psych: Appearance: well kempt Attitude: engaged Activity/motor behavior: appropriate eye contact Insight: insight good Judgement: judgment good Skin: Narrative: Well-healing incisions as described above, no other areas of rash, injury or abnormality. Course Course ED Course: 74-year-old male with recent bilateral femoral endarterectomy with increased swelling in his right lower extremity. Differential diagnosis including deep vein thrombosis, superficial thrombophlebitis, hemorrhage from arterial leakage from procedure, postprocedural swelling from increased activity, heme arthrosis, joint infection, amongst others. Recommend some basic blood work to monitor hemoglobin, platelet count, renal function and electrolytes. Venous Doppler ultrasound of the soft tissue in the groin as well as the deep veins. Consider CT of the lower extremity if any clinical signs of abnormality in the soft tissue. Reevaluation(s) Time of Reevaluation #1: 19:04 Reevaluation #1: Inform patient of results. Spoke with vascular surgery, Dr. Darden. She let me know that the fluid collection was present prior to discharge, minimal concern regarding this. We discuss the superficial venous thrombus, based on location, she does recommend stronger anticoagulation. Will continue aspirin, hold Plavix for the next 2-3 weeks and start Xarelto. She let me know that it does not need to be loading dose, can just be daily therapeutic dose. We will give 1st dose here in the emergency room. She also recommend use of thigh-high Brandon stockings and elevation. This was reviewed with patient. Written instructions are provided. I did let him know that this does increase his risk of bleeding. Sandy notices sudden worsening of swelling, severe pain, weakness, neurological changes, he should come back to the ED right away. He will need to follow-up with vascular team regarding when to discontinue the Xarelto specifically but she gave me the impression that it would be a few weeks. All questions answered. Written instructions provided. Vital Signs Vital signs: Initial Vital Signs Temperature 97.1 F L 02/07/25 16:26 Temperature Source Temporal Artery Scan 02/07/25 16:26 Pulse Rate 71 02/07/25 16:26 Respiratory Rate 20 02/07/25 16:26 Blood Pressure 147/78 H 02/07/25 16:26 Blood Pressure Mean 101 02/07/25 16:26 Blood Pressure Position Sitting 02/07/25 16:26 Pulse Oximetry 99 02/07/25 16:26 Oxygen Delivery Method Room Air 02/07/25 16:26 Vital Signs Temperature 97.1 F L 02/07/25 16:26 Pulse Rate 71 02/07/25 16:26 Respiratory Rate 20 02/07/25 16:26 Blood Pressure 147/78 H 02/07/25 16:26 Pulse Oximetry 99 02/07/25 16:26 Oxygen Delivery Method Room Air 02/07/25 16:26 Temperature 97.1 F L 02/07/25 16:26 Pulse Rate 71 02/07/25 16:26 Respiratory Rate 20 02/07/25 16:26 Blood Pressure 147/78 H 02/07/25 16:26 Pulse Oximetry 99 02/07/25 16:26 Oxygen Delivery Method Room Air 02/07/25 16:26 Medical Decision Making Lab Data Lab results reviewed: Yes I reviewed the patient's lab results Lab results narrative: Labs reassuring. No significant leukocytosis, hemoglobin stable. Kidney function looks good. INR normal as expected Labs: Lab Results 02/07/25 Range/Units 17:15 WBC 6.49 (4.50-11.00) K/uL RBC 3.27 L (4.30-5.90) m/uL Hgb 9.9 L (13.5-17.5) gm/dL Hct 30.1 L (37.0-53.0) % MCV 92 (80-100) fL MCH 30 (26-34) pg MCHC 33 (32-36) gm/dL RDW Coeff of Kyle 15.8 H (11.5-15.5) % Plt Count 172 (140-440) K/uL Neut % (Auto) 66.4 (42.0-72.0) % Lymph % (Auto) 13.4 L (20-44) % [place] % (Auto) 14.0 H (0.0-11.0) % Eos % (Auto) 5.7 (0.0-7.0) % Baso % (Auto) 0.3 (0.0-3.0) % Neut # (Auto) 4.31 (1.7-7.0) K/uL Lymph # (Auto) 0.90 (0.90-2.90) K/uL [place] # (Auto) 0.90 (0.00-0.90) K/UL Eos # (Auto) 0.37 (0.00-0.50) K/uL Baso # (Auto) 0.02 (0.00-0.30) K/uL Abs Immat Gran (auto) 0.01 (0.00-0.30) K/uL Imm/Tot Granulo (auto) 0.2 % INR 1.00 (0.91-1.10) Sodium 134 L (135-149) mmol/L Potassium 4.1 (3.6-5.1) mmol/L Chloride 103 (96-114) mmol/L Carbon Dioxide 27 (20-32) mmol/L Anion Gap 4 L (7-15) mEq/L BUN 20 (7-30) mg/dL Creatinine 0.9 (0.5-1.5) mg/dL Estimated Creat Clear 60.80 Estimated GFR 89 ml/min Glucose 114 (60-115) mg/dL Calcium 9.2 (8.4-10.6) mg/dL Imaging Data Venous Doppler ultrasound: Attestation: I have reviewed the pertinent imaging results. Radiologist's impression: Impression: 1. No ultrasound evidence of deep venous thrombosis. 2. Superficial venous thrombus in the greater saphenous vein extending from the saphenofemoral junction to the distal calf; no definitive extension is seen into the common femoral vein. 3. Left inguinal fluid collection measuring 6.0 x 1.2 x 2.2 centimeter may represent a postoperative seroma or evolving hematoma status post endarterectomy. Dictated by Justino Harp MD @ 02/07/2025 6:24:58 PM Discharge Plan Discharge Clinical Impression: Acute superficial venous thrombosis of right lower extremity Patient Disposition: Home w/ Parent or Adult Condition: Stable Instructions: Venous Thromboembolism (ED) Additional Instructions: As we discussed, you have a blood clot in the superficial venous system. This is less dangerous than a deep vein thrombosis. But unfortunately, your clot is rather large and it does creep to board the area where there superficial vein joints up with the deep veins and does put you at some risk of thromboembolism. Because of this, I have spoken with your vascular team. They are recommending that you stop taking your Plavix for the next few weeks. You will continue taking your aspirin. He will start taking a stronger blood thinner like Xarelto. We have given you a dose here in the emergency room tonight. You will need to pick this up tomorrow intake daily in the evenings. Please try to pick this up in the morning, as sometimes the computer is not correct as to which 1 of these similar medicines your insurance prefers. They are all therapeutically equivalent. We may need to switch you to Eliquis, Pradaxa or something similar based on your insurance preference. You may continue to walk and move frequently as you are doing but any time you are resting or seated, your leg needs to be elevated above the hip level. If you have a significant increase in more swelling, more pain, coldness of the extremity or severe weakness, you should come back right away. This medication does have a risk of bleeding but the vascular surgeon has weighed out the risks versus the benefits and feels this is the best treatment plan for you. They have also recommended that you wear thigh-high compression stockings. Please contact your vascular surgery clinic if you have further questions or concerns. Activity Level: Activity as Tolerated Discharge Diet: Regular Prescriptions: New Xarelto 20 mg tablet 20 mg PO DAILY Qty: 20 0RF Rx Instructions: must administer with evening meal Held clopidogrel 75 mg tablet 75 mg PO QAM Hold Instructions: Resume on 03/01/25. Hold for 3 weeks while you are taking the Xarelto instead. Continue taking your aspirin. No Action tamsulosin 0.4 mg capsule 0.8 mg PO DAILY lisinopril 10 mg tablet 10 mg PO DAILY hydrochlorothiazide 25 mg tablet 25 mg PO DAILY Patient Comments: TAKE 1 TABLET BY MOUTH EVERY DAY nitroglycerin 0.4 mg tablet, sublingual 0.4 mg buccal Q5M PRN Patient Comments: PLACE 1 TABLET (0.4 MG) UNDER THE TONGUE EVERY 5 MINUTES IF NEEDED FOR CHEST PAIN. omeprazole 20 mg capsule,delayed release(DR/EC) 20 mg PO DAILY Patient Comments: TAKE 1 CAPSULE BY MOUTH ONCE DAILY BEFORE A MEAL. rosuvastatin 40 mg tablet 40 mg PO DAILY Patient Comments: TAKE 1 TABLET BY MOUTH EVERYDAY AT BEDTIME vardenafil 20 mg tablet 20 mg PO DAILY PRN Patient Comments: TAKE 1 TABLET BY MOUTH ONCE DAILY IF NEEDED FOR ERECTILE DYSFUNCTION. gabapentin 100 mg capsule PO ezetimibe 10 mg tablet 10 mg PO DAILY oxycodone 5 mg tablet PO Follow Up/Referrals: Anette Mancuso PA-C [Primary Care Provider, Family Practice] Stand Alone Forms: Clinician [employer] Info Instructions
--- NOTE | 2025-02-07 16:56 | CRLHL7_ITS ---
For Patients: As a result of the Century Cures Act, medical imaging exams and procedure reports are released immediately into your electronic medical record. You may view this report before your referring provider. If you have questions, please contact your health care provider. Indication: swelling right leg, post endartectomy bilateral FIGURINE MAKER Technique: Real-time longitudinal and transverse sonographic shi-scale imaging with and without compression, as well as color, duplex, and spectral Doppler imaging before and after augmentation, was obtained of the deep system of the right lower extremity, including the common femoral, femoral, popliteal, posterior tibial, and peroneal veins. Comparison: None. Findings: Common femoral vein: No evidence of thrombus. Femoral vein: No evidence of thrombus. Popliteal vein: No evidence of thrombus. Calf veins: Patent. Thrombus is seen in the right greater saphenous vein extending from the saphenofemoral junction to the distal calf. No right inguinal fluid collection. Left inguinal fluid collection measuring 6.0 x 1.2 x 2.2 centimeter. Impression: 1. No ultrasound evidence of deep venous thrombosis. 2. Superficial venous thrombus in the greater saphenous vein extending from the saphenofemoral junction to the distal calf; no definitive extension is seen into the common femoral vein. 3. Left inguinal fluid collection measuring 6.0 x 1.2 x 2.2 centimeter may represent a postoperative seroma or evolving hematoma status post endarterectomy. Dictated by Justino Harp MD @ 02/07/2025 6:24:58 PM (Electronically Signed)
[2025-02-07 17:20] LABS: Hematocrit* 30.1 % (37.0-53.0); Hemoglobin* 9.9 gm/dL (13.5-17.5); Immature Granulocytes Abs Auto 0.01 K/uL (0.00-0.30); Immature Granulocytes Pct Auto 0.2 %; Mean Corpuscular HGB Conc 33 gm/dL (32-36); Mean Corpuscular Hemoglobin 30 pg (26-34); Mean Corpuscular Volume 92 fL (80-100); RDW Coefficient of Variation % 15.8 % (11.5-15.5); Red Blood Count* 3.27 m/uL (4.30-5.90); White Blood Count* 6.49 K/uL (4.50-11.00)
[2025-02-07 17:25] LABS: Lymphocytes Absolute Auto 0.90 K/uL (0.90-2.90)
[2025-02-07 17:26] LABS: Slide Review Reflex No
[2025-02-07 17:33] LABS: Chloride* 103 mmol/L (96-114); Potassium* 4.1 mmol/L (3.6-5.1); Sodium* 134 mmol/L (135-149)
[2025-02-07 17:35] LABS: INR 1.00 (0.91-1.10); Prothrombin Time 14.0 Seconds
[2025-02-07 17:36] LABS: Anion Gap 4 mEq/L (7-15); Blood Urea Nitrogen* 20 mg/dL (7-30); Calcium* 9.2 mg/dL (8.4-10.6); Carbon Dioxide* 27 mmol/L (20-32); Creatinine* 0.9 mg/dL (0.5-1.5); Est. Creatinine Clearance* 60.80; Estimated Glomerular Filt Rate 89 ml/min; Glucose* 114 mg/dL (60-115)
[2025-02-07] MEDS: RIVAROXABAN 10 MG TABLET PO (19:43)
== END 2025-02-07 19:52 | disposition home or self-care (01) ==
PROVIDERS: Emergency Provider Family Medicine; PCP Student in an Organized Health Care Education/Training Program
DX: I82.811 Embolism and thrombosis of superficial veins of right lower extremity (principal)
CPT/HCPCS: 36415; 80048; 85025; 85610; 93971; 99284; A9270

== ENCOUNTER 2025-02-12 09:48 | Emergency (ER) | payer MEDICARE, BC, SELFPAY ==
[2025-02-12] VITALS (41 sets, daily range): BP systolic 86–135; BP diastolic 49–73; PULSE 70–86; RESP 0–44; TEMP 36–36.3; O2SAT 90–99; BMI 27.5
[2025-02-12 10:05] LABS: Hematocrit* 20.6 % (37.0-53.0); Immature Granulocytes Abs Auto 0.04 K/uL (0.00-0.30); Immature Granulocytes Pct Auto 0.4 %; Mean Corpuscular HGB Conc 34 gm/dL (32-36); Mean Corpuscular Hemoglobin 31 pg (26-34); Mean Corpuscular Volume 93 fL (80-100); RDW Coefficient of Variation % 16.1 % (11.5-15.5); Red Blood Count* 2.21 m/uL (4.30-5.90); White Blood Count* 9.60 K/uL (4.50-11.00)
[2025-02-12 10:07] LABS: Hemoglobin* 6.9 gm/dL (13.5-17.5); Lymphocytes Absolute Auto 0.80 K/uL (0.90-2.90)
[2025-02-12 10:08] LABS: Slide Review Reflex No
[2025-02-12 10:14] LABS: Lactate* 1.6 mmol/L (0.5-1.9)
[2025-02-12 10:21] LABS: Troponin, Point-of-Care* 0.00 ng/ml (0.01-0.04)
--- NOTE | 2025-02-12 10:32 | CRLHL7_ITS ---
For Patients: As a result of the 21st Century Cures Act, medical imaging exams and procedure reports are released immediately into your electronic medical record. You may view this report before your referring provider. If you have questions, please contact your health care provider. INDICATION: Blood in stool. (Sic) No other history. COMPARISON: None available. TECHNIQUE: CT of the abdomen and pelvis with 95 cc of Isovue 370 intravenous contrast. Postcontrast imaging was performed in the systemic arterial and portal venous phases. Please note that all CT scans at this facility use dose modulation, iterative reconstruction, and/or weight-based dosing when appropriate to reduce radiation dose to as low as reasonably achievable. FINDINGS: ABDOMEN Liver: Normal contour and attenuation. No significant focal lesion. No intrahepatic biliary ductal dilatation. Patent portal veins. Patent hepatic veins. Gallbladder: Normal size. No pericholecystic inflammatory changes. Normal common duct caliber. Pancreas: Normal contour and attenuation. No peripancreatic inflammatory changes. No significant focal lesion. Normal main duct caliber. Spleen: Not enlarged. No significant focal lesion. Patent splenic artery and vein. Adrenal Glands: Symmetrical adrenal glands. No significant focal lesion. Kidneys: Normal bilateral renal attenuation. No significant focal lesion. Simple left lower pole renal cortical cysts. No nephrolith. No dilatation of the intrarenal collecting systems. No ureteral stone. Nondilated ureters. Patent renal arteries and veins. Gastrointestinal tract: No gastrointestinal intraluminal extravasation of intravenous contrast to indicate active bleeding. Normal caliber, attenuation and wall thickness of the gastrointestinal tract. Sigmoid diverticulosis without associated inflammatory changes. Normal small bowel mesentery. Normal appendix. Vascular: Chronic diffuse and severe aortoiliac and branch vessel atherosclerotic mural calcification. Focal hemodynamically significant stenosis (estimated to be 50 percent or greater on visual inspection) of the proximal SMA (series 5; image 60), otherwise difficult to grade due to atherosclerotic mural calcification which obscures luminal caliber of the vessel. 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 Abdominal aorta and its major proximal branches including the celiac, superior mesenteric, inferior mesenteric, renal, and bilateral common iliac arteries are otherwise patent. Patent superior mesenteric vein. Peritoneal Cavity/Retroperitoneum: No ascites. No adenopathy. PELVIS No bladder lesion is identified. No significant incidental findings related to the prostate or seminal vesicles. No significant ascites. No adenopathy. SKELETON AND BODY WALL Incompletely imaged bilateral proximal superficial femoral arterial bypass grafts associated with low-attenuation perianastomotic circumscribed fluid collections, left larger than right (22 mm compared to 13 mm; series 10; images 229, 230), and surgical clips. No associated enhancement indicates pseudoaneurysms or abscess. Superficial subcutaneous fat stranding suggest recent prior intervention. Correlate with the patient`s clinical history. Advanced right hip osteoarthrosis and multilevel bilateral facet joint osteoarthrosis at the lumbosacral junction. LOWER THORAX Small sliding hiatus hernia. Bilateral posterior/dependent lower lobe hypoventilatory changes. Curvilinear paraspinal subpleural opacity in the posterior segment of the right lower lobe consistent with nonspecific fibrosis. IMPRESSION: 1. No gastrointestinal intraluminal extravasation of intravenous contrast to indicate active bleeding. Please note that CT is insensitive for detection of mucosal lesions of the gastrointestinal tract. Consider nonemergent Gastroenterology referral for consideration of endoscopy for further evaluation, if clinically appropriate. 2. Sigmoid diverticulosis without evidence of acute diverticulitis. 3. 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 Incompletely imaged bilateral proximal superficial femoral arterial bypass grafts associated with low-attenuation perianastomotic circumscribed fluid collections, left larger than right (22 mm compared to 13 mm; series 10; images 229, 230), and surgical clips. No associated enhancement indicates pseudoaneurysms or abscess. Superficial subcutaneous fat stranding suggest recent prior intervention. Correlate with the patient`s clinical history. 4. Additional findings as above. Please note that all CT scans at this facility use dose modulation, iterative reconstruction, and/or weight-based dosing when appropriate to reduce radiation dose to as low as reasonably achievable. Dictated by Shine Cunha MD @ 02/12/2025 12:07:41 PM (Electronically Signed)
[2025-02-12 10:51] LABS: Chloride* 101 mmol/L (96-114); Potassium* 4.2 mmol/L (3.6-5.1); Sodium* 131 mmol/L (135-149)
[2025-02-12 10:54] LABS: Blood Urea Nitrogen* 24 mg/dL (7-30); Creatinine* 0.9 mg/dL (0.5-1.5); Est. Creatinine Clearance* 60.80; Estimated Glomerular Filt Rate 89 ml/min
[2025-02-12 10:55] LABS: Anion Gap 7 mEq/L (7-15); Calcium* 8.6 mg/dL (8.4-10.6); Carbon Dioxide* 23 mmol/L (20-32); Glucose* 119 mg/dL (60-115)
--- OUTSIDE RECORDS SUMMARY | 2025-02-12 10:56 | XMS_ITS ---
Author Organization [facility] Address [address] [place] [id number] Care Team Providers Care Shuffle Board Operator Name Role Phone Unavailable Primary Care Provider [...] History 06/16/2016 Atherosclerotic Heart Diseas e Of [place] Coronary Artery Without Angina Pectoris 08/28/2005 Hyperlipidemia [...] Fraction Dose Fractions Total Dose Plans Planned [id number] 08/03/2022 - 09/07/2022 270 cGy 7 ,020 cGy Reference Points Delivered [id number] 08/03/2022 - 09/07/2022 7,020 cGy
--- OUTSIDE RECORDS SUMMARY | 2025-02-12 10:56 | XMS_ITS | Clinical Summary ---
Author Organization [facility] Address [address] [facility] 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 Sigma, Tibial Insert Fixed Bearing Stabilized, 4, 17.5 Mm Implanted:Qty: 1 on 09/21/2024 by Wes Snowden MD at [facility] Total Joint Component/ Insert Right: Knee Depuy 10/24/2027 [id number] Explanted Type Area Pool Hall Inspector Device Identifier Shelf Expiration Date Model / Serial / Lot Polyethylene Explanted:Qty: 1 on 09/21/2024 by Wes Snowden MD at [facility] Total Joint Component /Insert Right: Knee Procedures [...] - BLOOD ORDERABLES F inal Result LABORATORY [facility] [address] Lab (1st floor, no room number) [place] [address], [facility] from Last 3 Months or Most Recently Relevant to Health Maintenance Insurance MEDICARE MEDICARE [place] [id number] BCBS OUT OF STATE Advance Directives For more information, please contact: [phone] Documents on File Type Date Recorded Patient Financial Secretary Expl anation Advance Directives and Living Will [...] Healthcare Agent Relationshi p Communication [facility] Health Care Agent Tiffanie Freitas Alternate Health Care Agent Care Teams Assistant Produce Manager Relationship Specialty Start Date End Date Anette [place]ancuso [place] [address] [place] [address] PCP - General Family Practice 08/28/24
--- OUTSIDE RECORDS SUMMARY | 2025-02-12 10:56 | XMS_ITS | Clinical Summary ---
Author Organization [facility] Address [facility] [place] [address] Care Team Providers Care Bottom Turner Name Role Phone Anette Mancuso Primary Care Provider [phone] Carol Dubon NP Unavailable Madonna Solis MD Unavailable [phone] Allergies No known active allergies Medications * [...] Oral TID, (No instructions reported), Reported on 02/12/2025 multivitamins-m inerals-lutein (Multivitamin 50 Plus) tab tablet [...] Problem Noted Date Diagnosed Date Atherosclerosis of [place] of extremities with rest pain, left leg 08/28/2024 Peripheral sensory neuropathy 01/17/2024 B12 deficiency 01/17/2024 Impotence of organic origin 12/17/2023 Cauda equina compression 09/15/2023 Lumbar spinal stenosis 07/13/2023 S/P laminectomy 07/13/2023 Other group home (current) drug therapy Stenosis of carotid artery 04/12/2023 Old myocardial infarction 04/12/2023 HTN (hypertension) 01/06/2023 Sensorineural hearing loss, bilateral 12/24/2022 Prostate cancer 06/26/2022 Overview (06/26/2022): Nayely 8. Diagnosed [facility]. Atherosclerosis of arteries of extremities [...] organization. Date Type Department Care Team Description 02/12/2025 8:40 AM CDT Office Visit [facility] [address] [place] [address] Anette Mancuso PA Post-op (Recent blood clot. New medications.//BILATER AL FEMOAL ENDARTERECTOMY, PATCH ANGIOPLASTY, PROFUNDAPLASTY) 02/12/2025 Travel 02/08/2025 11:00 AM CDT Nurse/Clinic Staff Only [facility] [address] [place] [address] Other (Assistance with putting thigh high compression stockings on. ) 02/08/2025 Travel 02/07/2025 Orders Only [facility] Scanner 1 scan: (1-Ord) [facility], 02/07/2025 02/07/2025 Orders Only [facility] Scanner <No scans attached> 02/07/2025 Travel 02/07/2025 Telephone [facility] [address] [place] [address] Walter Brown MD Concerns 02/07/2025 Patient Outreach [facility] [address] [place] [address] Shannan Crawford, RN Primary RN Care Management; Hospital F/U (LACE 56) 02/05/2025 Orders Only [facility] [address] [place] [address] Dawna Reyes NP <No scans attached> 02/02/2025 8:30 AM CDT - 02/02/2025 2:43 PM CDT Surgery [facility] [address] [place] [address] Walter Brown MD BILATERAL FEMOAL ENDARTERECTOMY, PATCH ANGIOPLASTY, PROFUNDAPLASTY 02/02/2025 8:19 AM CDT Anesthesia Event [facility] [address] [place] [address] Derick William MD 02/02/2025 6:11 AM CDT - 02/06/2025 9:59 AM CDT Hospital Encounter [facility] [address] [place] [address] Walter Brown MD Lasley, Kirsten Elizabeth, DO Post-op pain (Primary Dx); Constipation, unspecified constipation type Discharge Disposition: Home Self Care 02/02/2025 Travel 01/19/2025 8:15 AM CDT Office Visit [facility] [address] [place] [address] Anette Mancuso PA Medicare ANNUAL (subsequent) Visit (Nonfasting. Needs refills of Gabapentin. Discuss managing medication. ) 01/19/2025 Travel 01/14/2025 Travel 01/09/2025 11:15 AM CDT Office Visit [facility] [address] [phone] Carol Dubon NP Follow Up (Iron deficiency anemia) 01/08/2025 9:30 AM CDT Office Visit [facility] [address] [place] [address] Anette Mancuso PA Preoperative Exam (02/02/25, ANW, arteries) 01/08/2025 Telephone [facility] [address] [place] [address] Anette Mancuso PA 01/08/2025 Travel 01/04/2025 11:15 AM CDT Orders Only [facility] [address] [place] [address] Lab, [place] Lab 01/04/2025 Travel 01/03/2025 3:00 PM CDT Telemedicine [facility] [address] [place] [address] [facility] (No vitals taken) 01/03/2025 Travel 01/01/[address] [phone] Carol Dubon NP Lab (Lab orders needed) 12/29/2024 Travel 12/27/2024 3:00 PM CDT Telemedicine [facility] [address] [place] [address] [facility] Intake (No vitals taken DA) 12/24/2024 Travel 12/22/2024 Telephone [facility] [address] [place] [address] Walter Bronw MD Surgery Scheduled 12/22/2024 Travel 12/19/2024 10:00 AM CDT Office Visit [facility] [address] [place] [address] Walter Brown MD CV Vascular Est (3 month follow up; bilateral lower extremity PAD.) 12/19/2024 8:30 AM CDT - 12/19/2024 11:59 PM CDT Hospital Encounter [facility] [address] [place] [address] Walter Brown MD Moore, Brian H PAD (peripheral artery disease) 12/19/2024 Travel 12/18/2024 11:00 AM CDT Telemedicine [facility] [address] [facility] [address] [place] [address] [facility] Int[facility] (No vitals taken) 12/16/2024 Travel 12/14/2024 Travel 12/12/2024 1:35 PM CDT Office Visit [facility] [address] [place] [address] Anette Mancuso PA Concerns (Would like help with Stopping Alcohol. 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 Not on file Not on file Obstetrics History Last Filed Vital Signs Vital Sign Reading Time Taken Comments Blood Pressure 110/54 02/12/2025 8:42 AM CDT Pulse 84 02/12/2025 8:42 AM CDT Temperature 36.8 C (98.3 F) 02/06/2025 8:00 AM CDT Respiratory Rate 16 02/12/2025 8:42 AM CDT Oxygen Saturation 95% 02/06/2025 8:00 AM CDT Inhaled Oxygen Concentration - - Weight 82.1 kg (181 lb) 02/12/2025 8:42 AM CDT Height 172.7 cm (5' 8) 02/02/2025 6:45 AM CDT Body Mass Index 27.52 02/02/2025 6:45 AM CDT Plan of Treatment Upcoming Encounters Date Type Department Care Team (Late st Contact Info) Description 02/26/2025 8:30 AM A AND P MECHANIC Office Visit [facility] [address] [facility] [address] [place] [address] Sincere Cardona MD [address] [facility] [address] [place] [address] 02/28/2025 8:15 AM A AND P MECHANIC Orders Only [facility] [address] [place] [address] [place] 03/06/2025 9:15 AM A AND P MECHANIC Appointment [facility] [address] [place] [address] 03/06/2025 4:30 PM A AND P MECHANIC Office Visit [facility] [address] [place] [address] Walter Brown MD [address] [address] 09/10/2025 9:00 AM CDT Orders Only [facility] [address] [place] [address] [place] 09/13/2025 11:15 AM CDT Office Visit [facility] [address] [place] [address] Carol Dubon, CHASER HELPER [address] [place] [address] Health Maintenance Due Date Last Done Comments [...] this topic Medical Devices Implanted Type Area Information And Referral Director Device Identifier Shelf Expiration Date Model / Serial / Lot Tissue Pericardium 2x9cm Photo Fix Bovine - [id number] Implanted:Qty: 1 on 02/02/2025 by Walter Brwon MD at [facility] Cv Implants Bilateral: Femoral Artery [employer] 04/01/2026 [id number] / / [id number] Procedures Procedure Name Priority Date/Time Associated Diagnosis Comments SCAN-ULTRASOUND REPORT 12:00 AM CDT SCAN-ULTRASOUND REPORT 12:00 AM CDT SCAN-CARDIAC STRIP 02/05/2025 7:22 PM CDT [...] NO DIFF STAT 02/02/2025 1:19 PM CDT [facility] ACTIVATED CLOTTING TM CV Timed 02/02/2025 12:16 PM CDT PLASMA SNGL DON FFPEA UNIT STAT 02/02/2025 12:00 PM CDT PLASMA SNGL DON FFPEA UNIT STAT 02/02/2025 12:00 PM CDT PLASMA ORDER STAT 02/02/2025 11:51 AM CDT TRANSFUSE RBC (NURSE COMMUNICATION ORDER) Today 02/02/2025 11:43 AM CDT [facility] ACTIVATED CLOTTING TM CV Timed 02/02/2025 11:41 AM CDT COMPREHENSIVE BLOOD GAS ARTERIAL Timed 02/02/2025 11:38 AM CDT TRANSFUSE RBC (NURSE COMMUNICATION ORDER) Today 02/02/2025 11:25 AM CDT RBC W/O TYPE & SCREEN STAT 02/02/2025 11:17 AM CDT RED BLOOD CELLS EA UNIT STAT 02/02/2025 11:16 AM CDT RED BLOOD CELLS EA UNIT STAT 02/02/2025 11:16 AM CDT TRANSFUSE RBC (NURSE COMMUNICATION ORDER) STAT 02/02/2025 11:07 AM CDT [facility] ACTIVATED CLOTTING TM CV Timed 02/02/2025 11:06 AM CDT COMPREHENSIVE BLOOD GAS ARTERIAL Timed 02/02/2025 11:01 AM CDT RED BLOOD CELLS EA UNIT STAT 02/02/2025 11:00 AM CDT RED BLOOD CELLS EA UNIT STAT 02/02/2025 11:00 AM CDT RBC W/O TYPE & SCREEN STAT 02/02/2025 10:58 AM CDT [facility] ACTIVATED CLOTTING TM CV Timed 02/02/2025 10:26 AM CDT [facility] ACTIVATED CLOTTING TM CV Timed 02/02/2025 10:03 AM CDT ENDOTRACHEAL TUBE Routine 02/02/2025 9:17 AM CDT COMPREHENSIVE BLOOD GAS ARTERIAL Timed 02/02/2025 9:03 AM CDT ENDARTERECTOMY FEMORAL ARTERY 02/02/2025 8:00 AM CDT isabling claudication of bilateral lower extremities Case Notes BILATERAL FEMOAL ENDARTERECTOMY, PATCH ANGIOPLASTY, PROFUNDAPLASTY, BILATERAL LOWER EXTREMITIES ANGIOGRAPHY [facility] KIT PR5 Routine 02/02/2025 7:40 AM CDT [facility] DRSG PR5 Routine 02/02/2025 7:40 AM CDT [facility] DRSG PR1 Routine 02/02/2025 7:40 AM CDT [facility] TUBING PR20 Routine 02/02/2025 7:40 AM CDT [facility] TUBING PR1 Routine 02/02/2025 7:40 AM CDT [facility] ANES ARTERIAL CATH FOR SAMPLE MONITOR TRANS Routine 02/02/2025 7:40 AM CDT [facility] ANES US GUIDE FOR VASC ACCESS Routine 02/02/2025 7:40 AM CDT [facility] CATH INFUSION PR10 Routine 02/02/2025 7:40 AM [...] anemia type SCAN-COLONOSCOPY 12/14/2024 7:30 AM CDT ANTI HCV Routine 12/25/2021 2:47 PM CDT Need for hepatitis C screening test from Last 3 Months or Most Recently Relevant to Health Maintenance Results * SCAN-ULTRASOUND REPORT (02/07/2025 12:00 AM CDT) Only the most recent of2 resultswithin the time period is included. Anatomical Region Laterality Modality Other us Scanner OTHER Final Result * SCAN-CARDIAC STRIP (02/05/2025 7:22 PM CDT) us Scanner OTHER Final Result * SCAN-CARDIAC STRIP (02/05/2025 7:22 PM CDT) us Scanner OTHER Final Result * SCAN-CARDIAC STRIP (02/05/2025 12:01 PM CDT) us Scanner OTHER Final Result * (ABNORMAL) Platelets AM (02/05/2025 8:09 AM CDT) [facility] PLATELET COUNT 121(L) 140 - 440 thou/cu mm 02/05/2025 8:37 AM CDT [facility] MPV 10.5 6.5 - 11.0 fL 02/05/2025 8:37 AM CDT [facility] Blood BLOOD SPECIMEN / Unknown Butterfly / Unknown 02/05/2025 8:09 AM CDT 02/05/2025 8:29 AM CDT us Robbin Mora MD HEMATOLOGY Final Re sult [facility] [address] [place] [address], [place] * (ABNORMAL) Hemoglobin AM (02/05/2025 8:09 AM CDT) HEMOGLOBIN 9.2(L) 13.5 - 17.5 g/dL 02/05/2025 8:37 AM CDT [facility] MCV 91 80 - 100 fL 02/05/2025 8:37 AM CDT [facility] Blood BLOOD SPECIMEN / Unknown Butterfly / Unknown 02/05/2025 8:09 AM CDT 02/05/2025 8:29 AM CDT Robbin Mora MD HEMATOLOGY Final Re sult Performing Organization Address City/[facility]/ZIP Co de Phone Number [facility] [address] [place] [address], [place] * SODIUM (02/05/2025 8:09 AM CDT) SODIUM 142 136 - 145 mmol/L 02/05/2025 9:01 AM CDT [facility] Blood BLOOD SPECIMEN / Unknown Butterfly / Unknown 02/05/2025 8:09 AM CDT 02/05/2025 8:29 AM CDT Robbin Mora MD CHEMISTRY Final Re sult Performing Organization Address [facility]/ZIP Co de Phone Number [facility] [address] [place] [address], [place] * POTASSIUM (02/05/2025 8:09 AM CDT) Only the most recent of2 resultswithin the time period is included. POTASSIUM 3.8 3.5 - 5.1 mmol/L 02/05/2025 9:01 AM CDT [facility] Blood BLOOD SPECIMEN / Unknown Butterfly / Unknown 02/05/2025 8:09 AM CDT 02/05/2025 8:29 AM CDT Robbin Mora MD CHEMISTRY Final Re sult [facility] [address] [address], * CREATININE (02/05/2025 8:09 AM CDT) eGFR >90 >90 mL/min/1.7 3m2 02/05/2025 9:01 AM CDT [facility] Comment:As of 2021, eG FR is calculated by the CKD-EPI creatinine equation without race adjustment. eGFR can be influenced by muscle mass, exercise, and diet. The reported eGFR is an estimation only and is only applicable if the renal function is stable. CREATININE 0.74 0.70 - 1.20 mg/dL 02/05/2025 9:01 AM CDT [facility] Blood BLOOD SPECIMEN / Unknown Butterfly / Unknown 02/05/2025 8:09 AM CDT 02/05/2025 8:29 AM CDT Robbin Mora MD CHEMISTRY Final Re sult [facility] [address] [place] [address], * SCAN-CARDIAC STRIP (02/04/2025 8:33 PM CDT) us Scanner OTHER Final Result * SCAN-CARDIAC STRIP (02/04/2025 3:50 PM CDT) us Scanner OTHER Final Result * (ABNORMAL) CBC W PLT NO DIFF (02/04/2025 8:52 AM CDT) Only the most recent of5 resultswithin the time period is included. WHITE BLOOD COUNT 7.6 4.5 - 11.0 thou/cu mm 02/04/2025 10:10 AM CDT [facility] RED BLOOD COUNT 3.25(L) 4.30 - 5.90 mil/cu mm 02/04/2025 10:10 AM CDT [facility] HEMOGLOBIN 9.8(L) 13.5 - 17.5 g/dL 02/04/2025 10:10 AM CDT [facility] HEMATOCRIT 29.6(L) 37.0 - 53.0 % 02/04/2025 10:10 AM CDT [facility] MCV 91 80 - 100 fL 02/04/2025 10:10 AM CDT [facility] MCH 30.2 26.0 - 34.0 pg 02/04/2025 10:10 AM CDT [facility] MCHC 33.1 32.0 - 36.0 g/dL 02/04/2025 10:10 AM CDT [facility] RDW 16.7(H) 11.5 - 15.5 % 02/04/2025 10:10 AM CDT [facility] PLATELET COUNT 111(L) 140 - 440 thou/cu mm 02/04/2025 10:10 AM CDT [facility] MPV 10.7 6.5 - 11.0 fL 02/04/2025 10:10 AM CDT [facility] NRBC 0.0 % 02/04/2025 10:10 AM CDT [facility] ABS NRBC 0.0 thou /cu mm 02/04/2025 10:10 AM CDT [facility] Blood BLOOD SPECIMEN / Unknown Venipuncture / Unknown 02/04/2025 8:52 AM CDT 02/04/2025 9:28 AM CDT us Letty Hoffman DO HEMATOLOGY Final Result [facility] [address] [place] [address], * SCAN-CARDIAC STRIP (02/03/2025 8:03 AM CDT) us Scanner OTHER Final Result * (ABNORMAL) BASIC METABOLIC PANEL (02/03/2025 6:40 AM CDT) Only the most recent of3 resultswithin the time period is included. [facility] SODIUM 138 136 - 145 mmol/L 02/03/2025 7:52 AM [facility] POTASSIUM 3.9 3.5 - 5.1 mmol/L 02/03/2025 7:52 AM [facility] CHLORIDE 105 98 - 107 mmol/L 02/03/2025 7:52 AM [facility] CO2,TOTAL 20(L) 22 - 29 mmol/L 02/03/2025 7:52 AM [facility] ANION GAP 13 5 - 18 02/03/2025 7:52 AM [facility] GLUCOSE 92 70 - 99 mg/dL 02/03/2025 7:52 AM [facility] CALCIUM 7.8(L) 8.8 - 10.4 mg/dL 02/03/2025 7:52 AM [facility] Comment: Reference ranges for this test were updated on 02/29/2024 to reflect our healthy population more accurately. Reference range changes are not retroactively applied to results, but previous results using the same methodology can be interpreted in the context of the new reference range. BUN 13 8 - 23 mg/dL 02/03/2025 7:[address] [facility] CREATININE 0.63(L) 0.70 - 1.20 mg/dL 02/03/2025 7:52 AM [facility] BUN/CREAT RATIO 21(H) 10 - 20 7:52 AM [facility] eGFR >90 >90 mL/min/1. 73m2 02/03/2025 7:52 AM [facility] Comment:As of 2021, eG FR [...] us Dilip Gaffney MD CHEMISTRY Final Result [facility] [address] [place] [address], [place] * SCAN-CARDIAC STRIP (02/02/2025 11:42 PM [...] 11.0 thou/cu mm 02/02/2025 6:58 PM CDT [facility] RED BLOOD COUNT 2.77(L) 4.30 - 5.90 mil/cu mm 02/02/2025 6:58 PM CDT [facility] HEMOGLOBIN 8.3(L) 13.5 - 17.5 g/dL 02/02/2025 6:58 PM CDT [facility] HEMATOCRIT 24.4(L) 37.0 - 53.0 % 02/02/2025 6:58 PM CDT [facility] MCV 88 80 - 100 fL 02/02/2025 6:58 PM CDT [facility] MCH 30.0 26.0 - 34.0 pg 02/02/2025 6:58 PM CDT [facility] MCHC 34.0 32.0 - 36.0 g/dL 02/02/2025 6:58 PM CDT [facility] RDW 16.1(H) 11.5 - 15.5 % 02/02/2025 6:58 PM CDT [facility] PLATELET COUNT 90(L) 140 - 440 thou/cu mm 02/02/2025 6:58 PM CDT [facility] MPV 9.8 6.5 - 11.0 fL 02/02/2025 6:58 PM CDT [facility] NRBC 0.0 % 02/02/2025 6:58 PM CDT [facility] ABS NRBC 0.0 thou /cu mm 02/02/2025 6:58 PM CDT [facility] % NEUT 90.0 % 02/02/2025 6:58 PM CDT [facility] % LYMPH 3.4 % 02/02/2025 6:58 PM CDT [facility] % MONO 5.8 % 02/02/2025 6:58 PM CDT [facility] % EOS 0.0 % 02/02/2025 6:58 PM T [facility] % BASO 0.2 % 02/02/2025 6:58 PM CDT [facility] % IMMATURE GRAN (METAS,MYELOS,TN OS) 0.6 % 02/02/2025 6:58 PM CDT [facility] ABSOLUTE NEUTROPHILS 8.4(H) 1.7 - 7.0 thou/cu mm 02/02/2025 6:58 PM CDT [facility] ABSOLUTE LYMPHOCYTES 0.3(L) 0.9 - 2.9 thou/cu mm 02/02/2025 6:58 PM CDT [facility] ABSOLUTE MONOCYTES 0.5 <0.9 thou/cu mm 02/02/2025 6:58 PM T [facility] ABSOLUTE EOSINOPHILS 0.0 <0.5 thou/cu mm 02/02/2025 6:58 PM CDT [facility] ABSOLUTE BASOPHILS 0.0 <0.3 thou/cu mm 02/02/2025 6:58 PM CDT [facility] ABSOLUTE IMMATURE GRANULOCYTES(MET ,MYELOS,PROS) 0.1 <0.3 thou/cu mm 02/02/2025 6:58 PM CDT [facility] Blood BLOOD SPECIMEN / Unknown Non-Lab Venipuncture / Unknown 02/02/2025 5:12 PM CDT 02/02/2025 5:38 PM CDT us Dilip Gaffney MD HEMATOLOGY Final Result [facility] [address] [place] [address], * (ABNORMAL) PLATELET ESTIMATE (02/02/2025 5:12 PM CDT) PLATELET ESTIMATE Decreased (A) Adequate, No estimate 02/02/2025 6:58 PM CDT [facility] Blood BLOOD SPECIMEN / Unknown Non-Lab Venipuncture / Unknown 02/02/2025 5:12 PM CDT 02/02/2025 5:38 PM CDT us Dilip Gaffney MD HEMATOLOGY Final Result [facility] [address] [place] [address], [place] * APTT (02/02/2025 5:12 PM CDT) APTT 30 25 - 36 sec 02/02/2025 5:53 PM CDT [facility] Blood BLOOD SPECIMEN / Unknown Non-Lab Venipuncture / Unknown 02/02/2025 5:12 PM CDT 02/02/2025 5:38 PM CDT Narrative [facility] - 02/02/2025 5:53 PM CDT Therapeutic Range: 59-89 seconds us Dilip Gaffney MD HEMATOLOGY Final Result Performing Organization Address [facility] Co de Phone Number [facility] [address] [address], [place] * (ABNORMAL) PROTIME-INR (02/02/2025 5:12 PM CDT) Only the most recent of2 resultswithin the time period is included. INR 1.2 <1.3 02/02/2025 5:53 PM CDT [facility] PROTIME 14.2(H) 10.6 - 12.4 sec 02/02/2025 5:53 PM CDT [facility] Blood BLOOD SPECIMEN / Unknown Non-Lab Venipuncture / Unknown 02/02/2025 5:12 PM CDT 02/02/2025 5:38 PM CDT Narrative [facility] - 02/02/2025 5:53 PM CDT Therapeutic Range [...] MD HEMATOLOGY Final Result Performing Organization Address [facility] Co de Phone Number [facility] [address] [address], [place] * (ABNORMAL) FIBRINOGEN,QUANTITATIVE (02/02/2025 5:12 PM CDT) FIBRINOGEN,JIMMY NTITATIVE 150(L) 193 - 401 mg/dL 02/02/2025 5:53 PM CDT [facility] Blood BLOOD SPECIMEN / Unknown Non-Lab Venipuncture / Unknown 02/02/2025 5:12 PM CDT 02/02/2025 5:38 PM CDT us Dilip Gaffney MD HEMATOLOGY Final Result Performing Organization Address City/[facility]/ZIP Co de Phone Number [facility] [address] [place] [address], * (ABNORMAL) CALCIUM IONIZED HOSPITAL DRAW ONLY (02/02/2025 5:12 PM CDT) CALCIUM,IONIZE D 1.04(L) 1.15 - 1.27 mmol/L 02/02/2025 5:44 PM CDT [facility] Blood BLOOD SPECIMEN / Unknown Non-Lab Venipuncture / Unknown 02/02/2025 5:12 PM CDT 02/02/2025 5:38 PM CDT Dilip Gaffney MD CHEMISTRY Final Result Performing Organization Address [facility] Co de Phone Number [facility] [address] [place] [address], [place] * TRANSFUSE PLASMA (NURSE COMMUNICATION ORDER) (02/02/2025 [...] QUANTITY 1 02/02/2025 4:0 9 PM CDT [facility] Blood BLOOD SPECIMEN / Unknown 02/02/2025 4:07 PM CDT Walter Brown MD BLOOD BANK Final Result Performing Organization Address City/[facility]/ZIP Co de Phone Number [facility] [address] [place] [address], [place] [phone] * PLASMA SNGL DON FFPEA UNIT (02/02/2025 4:07 PM CDT) Only the most recent of5 resultswithin the time period is included. PRODUCT BLOOD TYPE O Rh Positive [facility] PRODUCT ID NUMBER [id number] [facility] PRODUCT STATUS Transfused [facility] BLOOD [facility] PRODUCT DESCRIPTION FP CPD [facility] PRODUCT CODE [id number] [facility] ISSUE DATE/TIME 02/02/25 16:41 [facility] Walter Brown MD BLOOD BANK Edited Result - Final Performing Organization Address [facility]/ZIP Co de Phone Number [facility] [address] [place] [address], * RBC W/O TYPE & SCREEN (02/02/2025 2:09 PM CDT) Only the most recent of3 resultswithin the time period is included. [facility] QUANTITY 1 02/02/2025 2:0 9 PM CDT [facility] B[facility] Blood BLOOD SPECIMEN / Unknown 02/02/2025 2:07 PM CDT Derick Salter MD BLOOD BANK Fi nal Result [facility] [address] [place] [address], * ACTIVATED CLOTTING TIME [id number] ACT (02/02/2025 12:16 PM CDT) Only the most recent of5 resultswithin the time period is included. [facility] ACTIVATED CLOTTING TIME, POCT [phone] - 125 sec 02/08/2025 3:59 PM CDT [facility] Blood BLOOD SPECIMEN / Unknown 02/02/2025 12:16 PM CDT 02/08/2025 3:59 PM CDT us Walter Brown MD HEMATOLOGY Final Result [facility] [address] [place] [address], [place] * TRANSFUSE RBC (NURSE COMMUNICATION ORDER) (02/02/2025 11:43 AM CDT) Blood BLOOD SPECIMEN / Unknown us Derick Salter MD NURSING BLOOD BANK Final Result * (ABNORMAL) COMPREHENSIVE BLOOD GAS ARTERIAL (02/02/2025 11:38 AM CDT) Only the most recent of3 resultswithin the time period is included. PH, ARTERIAL 7.42 7.35 - 7.45 02/02/2025 11:38 AM CDT [facility] PCO2, ARTERIAL 35 35 - 48 mmHg 02/02/2025 11:38 AM CDT [facility] PO2, ARTERIAL 221(H) 83 - 108 mmHg 02/02/2025 11:38 AM CDT [facility] HCO3, ARTERIAL 23 21 - 28 mmol/L 02/02/2025 11:38 AM CDT [facility] BASE EXCESS, ARTERIAL -1.5 -2.0 - 3.0 02/02/2025 11:38 AM T [facility] O2 SATURATION, ARTERIAL 99(H) 94 - 98 % 02/02/2025 11:38 AM CDT [facility] PATIENT TEMPERATURE 37.0 Degrees C 02/02/2025 11:38 AM T [facility] COLLECTION SITE ARTERIAL LINE 02/02/2025 11:38 AM CDT [facility] HEMOGLOBIN,BLOO D GAS 9.3(L) 13.5 - 17.5 g/dL 02/02/2025 11:38 AM CDT [facility] SODIUM 134(L) 136 - 145 mmol/L 02/02/2025 11:38 AM CDT [facility] POTASSIUM 4.1 3.5 - 5.1 mmol/L 02/02/2025 11:38 AM CDT [facility] CHLORIDE 108(H) 98 - 107 mmol/L 02/02/2025 11:38 AM CDT [facility] Blood BLOOD SPECIMEN / Unknown 02/02/2025 11:38 AM CDT 02/02/2025 11:38 AM CDT Walter Brown MD CHEMISTRY Final Result [facility] [address] [place] [address], * TRANSFUSE RBC (NURSE COMMUNICATION ORDER) (02/02/2025 11:25 AM CDT) Blood BLOOD SPECIMEN / Unknown Derick Salter MD NURSING BLOOD BANK Final Result * RED BLOOD CELLS EA UNIT (02/02/2025 11:16 AM CDT) Only the most recent of5 resultswithin the time period is included. CROSSMATCH Compatible Compatible [facility] Ice[facility]-CENTRAL LAB BLOOD BANK PRODUCT BLOOD TYPE O Rh Positive [facility] W[employer]ply LAB BLOOD BANK PRODUCT ID NUMBER [id number] [facility] GenZ[facility] Life SciencesCENTRAL LAB BLOOD BANK PRODUCT STATUS Transfused [facility] GenZum Life SciencesCENTRAL LAB BLOOD BANK PRODUCT DESCRIPTION RBC -1 LR [facility] Womply LAB BLOOD BANK PRODUCT CODE [id number] [facility] [email or web address] LAB BLOOD BANK ISSUE DATE/TIME 02/02/25 14:46 [facility] [employer] LAB BLOOD BANK Walter Brown MD BLOOD BANK Edited Result - Final [facility] Sciences[facility]ENTRAL LAB BLOOD BANK [address] [place] [address], [place] [phone] * TRANSFUSE RBC (NURSE COMMUNICATION ORDER) (02/02/2025 11:08 AM CDT) Blood BLOOD SPECIMEN / Unknown us Paulette JEFFREY NURSING BLOOD BANK Final Result * [...] HCHG KIT PR5 (02/02/2025 7:40 AM CDT) Narrative Derick William MD - 02/02/2025 7:40 AM CDT Derick [...] Securement/dressing: Biopatch applied, dressing applied. Comment: Vessel Fur Sewer Additional supplies used to locate vessel: no Needle Catheter size: 20 G. Comment:. Catheter length: 12 cm. Comment: Events: no complications. Tatianna Salazar EMERGENCY SPILL RESPONSE TECHNICIAN ANESTHESIA PX NOTE ORDERABLES Final Result * RBC W TYPE AND SCREEN (02/02/2025 6:43 AM CDT) Pathologist [facility] ABORH O Rh Positive 02/02/2025 7:35 AM CDT [facility] ANTIBODY SCREEN Negative Negative 02/02/2025 7:35 AM CDT [facility] SPECIMEN EXPIRATION DATE/TIME 02/05/25 23:59 02/02/2025 7:35 AM CDT [facility] Blood BLOOD SPECIMEN / Unknown Butterfly / Unknown 02/02/2025 6:43 AM CDT 02/02/2025 6:53 AM CDT Paulette JEFFREY BLOOD BANK Final Result [facility] LAB BLOOD BANK [address] [place] [address], [place] [phone] * SCAN-CARDIAC STRIP (02/02/2025 12:00 AM CDT) Narrative 02/02/2025 12:00 AM CDT Ordered by an unspecified provider. Other Clinical Staff OTHER Final Resul t * (ABNORMAL) IRON PLUS IRON BINDING CAP (01/04/2025 11:09 AM CDT) Pathologist [facility] IRON, TOTAL 67 50 - 180 mcg/dL [...] CHEMISTRY Final Resu lt Performing Organization Address [facility]/ZIP Co de Phone Number [facility] [address] [address], [place] [phone] * (ABNORMAL) FERRITIN (01/04/2025 11:09 AM CDT) FERRITIN 20(L) 24 - 380 ng/mL 01/05/2025 3:52 AM CDT [facility] Blood BLOOD SPECIMEN / Unknown [facility] / Unknown 01/04/2025 11:09 AM CDT 01/04/2025 11:09 AM CDT us Alejandrina Alfaro RN CHEMISTRY Final Resu lt Performing Organization Address [facility] Co de Phone Number [facility] [address] [address], [place] [phone] * VITAMIN B12 (01/04/2025 11:09 AM CDT) VITAMIN B12 661 200 - 1100 pg/mL 01/05/2025 3:52 AM CDT [facility] Blood BLOOD SPECIMEN / Unknown [facility] / Unknown 01/04/2025 11:09 AM CDT 01/04/2025 11:09 AM CDT us Alejandrina Alfaro RN CHEMISTRY Final Resu lt Performing Organization Address [facility] Co de Phone Number [facility] [address] [address], [place] [phone] * US ARTERIAL LOWER EXTREMITY W NEEMA BILATERAL (12/19/2024 9:34 AM CDT) Anatomical Region Laterality Modality LEGS Ultrasound 12/19/2024 8:36 AM CDT Narrative 12/20/2024 6:40 AM CDT VASCULAR ULTRASOUND REPORT BRANDI GARRETT : 1950 Study Date: 12/19/2024 8:36:32 AM Age: 74 years Tech: [facility] Gender: M Referring MD: WALTER BROWN Site: [facility] Study performed: Lower extremity duplex US, resting NEEMA, TBI, (bilateral). 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/stent/bypass Study Quality: Good TECHNIQUE: Lower/upper extremity arteries [...] Velocity cm/s Phasicity +--------+ + + +------+ CERTIFIED VETERINARY TECHNICIAN PRX 86 monophasic +--------+ + + +------+ CERTIFIED VETERINARY TECHNICIAN DST 121 stenotic +--------+ + + +------+ PFA 158 monophasic +--------+ + + +------+ SFA PRX 159 monophasic +--------+ + + +------+ SFA MID 270 125 stenotic 2.2:1 +--------+ + + +------+ SFA DST 118 monophasic +--------+ + + +------+ MAULIK PRX 45 monophasic +--------+ + + +------+ MAULIK DST 42 monophasic +--------+ + + +------+ CARTOGRAPHIC ENGINEER DST 56 monophasic +--------+ + + +------+ DPA 53 monophasic +--------+ + + +------+ +--------+ + + LEFT Velocity cm/s Phasicity +--------+ + + CERTIFIED VETERINARY TECHNICIAN PRX 122 multiphasic +--------+ + + CERTIFIED VETERINARY TECHNICIAN DST 135 multiphasic +--------+ + + SFA PRX 152 multiphasic +--------+ + + SFA MID 101 monophasic +--------+ + + SFA DST 65 monophasic +--------+ + + MAULIK DST 120 multiphasic +--------+ + + CARTOGRAPHIC ENGINEER DST 29 monophasic +--------+ + + DPA 52 monophasic +--------+ + + Criteria: Stenosis V. Ratio Mild <50% <2.0 Moderate 50-74% > or = 2.0 Severe 75-99% > or = 4.0 Occluded 100% no detectable flow Pressures +-----+ +--------+ +-----+ RIGHT (mmHg) LEFT (mmHg) +-----+ +--------+ +-----+ Index 120 Brachial 120 Index +-----+ +--------+ +-----+ CARTOGRAPHIC ENGINEER 94 0.78 +-----+ +--------+ +-----+ 0.66 79 [...] Accreditation Commission (IAC/Vascular), [email or web address] Report generated by [employer]. Final Procedure Note Mychal Saeed MD - 12/20/2024 VASCULAR ULTRASOUND REPORT BRANDI GARRETT : 1950 Study Date: 12/19/2024 8:36:32 AM Age: 74 years Tech: M Gender: M Referring MD: WALTER BROWN Site: [facility] Study performed: Lower extremity duplex US, resting NEEMA, TBI,(bilateral). 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/stent/bypass Study Quality: Good TECHNIQUE: Lower/upper extremity arteries [...] Velocity cm/s Phasicity +--------+ + + +------+ CERTIFIED VETERINARY TECHNICIAN PRX 86 monophasic +--------+ + + +------+ CERTIFIED VETERINARY TECHNICIAN DST 121 stenotic +--------+ + + +------+ PFA 158 monophasic +--------+ + + +------+ SFA PRX 159 monophasic +--------+ + + +------+ SFA MID 270 125 stenotic 2.2:1 +--------+ + + +------+ SFA DST 118 monophasic +--------+ + + +------+ MAULIK PRX 45 monophasic +--------+ + + +------+ MAULIK DST 42 monophasic +--------+ + + +------+ CARTOGRAPHIC ENGINEER DST 56 monophasic +--------+ + + +------+ DPA 53 monophasic +--------+ + + +------+ +--------+ + + LEFT Velocity cm/s Phasicity +--------+ + + CERTIFIED VETERINARY TECHNICIAN PRX 122 multiphasic +--------+ + + CERTIFIED VETERINARY TECHNICIAN DST 135 multiphasic +--------+ + + SFA PRX 152 multiphasic +--------+ + + SFA MID 101 monophasic +--------+ + + SFA DST 65 monophasic +--------+ + + MAULIK DST 120 multiphasic +--------+ + + CARTOGRAPHIC ENGINEER DST 29 monophasic +--------+ + + DPA 52 monophasic +--------+ + + Criteria: Stenosis V. Ratio Mild <50% <2.0 Moderate 50-74% > or = 2.0 Severe 75-99% > or = 4.0 Occluded 100% no detectable flow Pressures +-----+ +--------+ +-----+ RIGHT (mmHg) LEFT (mmHg) +-----+ +--------+ +-----+ Index 120 Brachial 120 Index +-----+ +--------+ +-----+ CARTOGRAPHIC ENGINEER 94 0.78 +-----+ +--------+ +-----+ 0.66 79 [...] theIntersocietal Accreditation Commission (IAC/Vascular),[email or web address] Report generated by [employer]. Final us Walter Brown MD US Final Result * SCAN-COLONOSCOPY (12/14/2024 7:30 AM CDT) Narrative Procedure Note Kendrick Jerez DO - 12/14/2024 6:34 AM CDT [facility] [address], [address], [place] [address] Patient Name: Brandi Garrett Gender: Male Exam Date: 12/14/2024 Visit Number: [id number] Age: 74 Years Date of : 1950 Attending MD: Kendrick Jerez DO Medical Record#: [id number] Procedure: Colonoscopy Indications: Iron deficiency anemia Referring [...] soluble fiber in yourdiet or by using efko-edj-ssickwb fiber supplements such as Citrucel,Metamucil, or psyllium [...] Medications: Admitting Medication: 0.9% Normal Saline at TK Intra Procedure Medications: Patient received monitored anesthesia [...] signed by: Brandi Guzman MD Interpreted at [facility], [address] [place] [address] [address] [address] Final Plan: Repeat colonoscopy in 5 years. [...] should you have any questions or concerns ([phone] ext.[phone]). _Electronically signed by: Kendrick Jerez DO 12/14/2024 cc: Anette Mancuso PAC Kendrick Jerez DO OTHER Fin al Result * ANTI HCV (12/25/2021 2:47 PM CDT) HEPATITIS C ANTIBODY Non-React tobi Non-React tobi 12/26/2021 3:57 AM CDT [facility] Comment:Antibodies to HCV no t detected; does not exclude the possibility of exposure to HCV. Blood BLOOD SPECIMEN / Unknown Venipuncture / Unknown 12/25/2021 2:47 PM CDT 12/25/2021 2:47 PM CDT us Jayde JEFFREY SEND OUTS Final Resu lt [facility] [address] [place] [address], [place] from Last 3 Months or Most Recently Relevant to Health Maintenance Insurance MEDICARE PART B HB ONLY MEDICARE PART A HB ONLY MEDICARE PB ONLY BLUE CROSS OF NON-ND-ITS Advance Directives Documents on File Type Date Recorded Patient Track Car Operator Expl anation Healthcare Directive 08/24/2019 12:00 AM [facility] POA - [...] 5:11 PM 02/26/2016 9:34 PM Care Teams Bottom Turner Relationship Specialty Start Date End Date Anette Mancuso PA [facility] [place] [address] PCP - General Physician Ammunition And Explosives Handler 09/11/22 Carol Dubon, CHASER HELPER [address] [place] [address] Oncology 01/04/25 Madonna Solis MD [address] [place] [address] Oncology 01/04/25
--- OUTSIDE RECORDS SUMMARY | 2025-02-12 10:56 | XMS_ITS | Clinical Summary ---
Author Organization [facility] Address [address], [place] [address] Care Team Providers Care Individual Pension Consultant Name Role Phone Ekaterina Latham PA-C Primary Care Provider Source Comments You are receiving this document as you are listed as the primary care provider,follow-up provider, or the patient has been referred to you for consultation.This is in compliance with the Medicare andSumma Healthcaid EHR Incentive Program,which states Providers who transition their patient to another setting of careor provider of care or refers their patient to another provider of care shouldprovide summary care record for each transition of care or referral. [facility] Allergies No known active allergies Medications unknown medication Indications: PN: 0 Active hydrochlorothia zide (AKA HYDRODIURIL) 25 MG tablet Take 1 tablet by mouth daily (every 24 hours). LW Comment:Rx Future Refill-Pt will call LW Addl Instr:FAX TO [facility] Indicated for: High Blood Pressure 90 [...] Refill-Pt will call LW Addl Instr:FAX TO [facility]. Do not cut/crush/chew. Take with food. Indicated for: High Cholesterol 90 3 0 Active ezetimibe (AKA ZETIA) 10 MG tablet Take 1 tablet by mouth nightly. LW Comment:Rx Future Refill-Pt will call LW Addl Instr:FAX TO [facility] Indicated for: High Cholesterol 90 3 0 [...] Overview (12/16/2016): LW Modifier: AD sent to [facility] 06/17/09 ; Advanced Directive Issues Counseling Old myocardial infarction 11/09/2008 Overview (12/16/2016): MT Old Essential hypertension 11/09/2008 Overview (12/16/2016): Hypertension [...] Comments Blood Pressure 122/70 06/17/2009 8:09 AM PUBLIC SERVICES LIBRARIAN Pulse 68 06/17/2009 8:09 AM PUBLIC SERVICES LIBRARIAN Temperature 36.4 C (97.5 F) 11/09/2008 10:58 AM CDT ORAL C: 36.4 C Respiratory Rate 16 06/01/2008 5:07 PM PUBLIC SERVICES LIBRARIAN Oxygen Saturation - - Inhaled Oxygen Concentration - - Weight 83.9 kg (184 lb 15.8 oz) 06/17/2009 8:09 AM PUBLIC SERVICES LIBRARIAN C: 83.9kg Height 174 cm (5' 8.5) 06/17/2009 8:09 AM PUBLIC SERVICES LIBRARIAN C: 174.0cm Body Mass Index 27.72 06/17/2009 8:09 AM PUBLIC SERVICES LIBRARIAN Plan of Treatment Health Maintenance Due Date [...] LDL (IF NEEDED) Routine 06/12/2009 7:50 AM PUBLIC SERVICES LIBRARIAN from Last 3 Months or Most Recently Relevant to Health Maintenance Results * Lipid Panel and Direct LDL(If Needed) (06/12/2009 7:50 AM PUBLIC SERVICES LIBRARIAN) Hours Fasting 12.0 Hours HP CONVERSION Cholesterol/HDL Ratio Screen 2.7 No normal range HP CONVERSION Cholesterol 155 <200 mg/dL HP CONVERSION HDL Cholesterol 57 >40 mg/dL HP CONVERSION Triglycerides 121 0 - 149 mg/dL HP CONVERSION LDL Calculated 74 0 - 130 mg/dL HP CONVERSION Comment: 06/12/2009 7:50 AM PUBLIC SERVICES LIBRARIAN Frank Foy MD LAB_1 Final Result HP CONVERSION from Last 3 Months or Most Recently Relevant to Health Maintenance Insurance MEDICARE MANAGED CARE [facility] [employer] [place] [id number] Advance Directives Documents on File Type Date Recorded Patient Gun Synchronizer Expl anation Advance Directive/Living Will/Durable Power of Attny on file/POLST PN Care Teams Individual Pension Consultant Relationship Specialty Start Date End Date Ekaterina Latham PA-C [address] [facility] [address] [place] [address] PCP - General 01/31/13
--- OUTSIDE RECORDS SUMMARY | 2025-02-12 10:56 | XMS_ITS | Encounter Summary ---
Author Organization [facility] Address [address] [place] [address] Care Team Providers Care Uke Operator Name Role Phone Unavailable Primary Care Provider Unavailabl e Encounter Details Date Type Department Care Team (Latest Contact Info) Description 06/02/2023 Orders Only Central Appointment Office in [place], [place] [address] [place] [address] [facility], Provider, Arteriosclerotic Heart Disease Social History [...] your living situation today? I have a [facility] place to live 09/30/2022 Education Answer Date Recorded What is the highest level of school you have completed or the highest degree you have received? 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, in [place], [place] [address] [place] [address] Ekaterina Padilla APRN, C.N.P., D.N.P. [address] [place] [id number] documented as of this encounter Visit Diagnoses Diagnosis Arteriosclerotic Heart Disease documented in this encounter
--- OUTSIDE RECORDS SUMMARY | 2025-02-12 10:57 | XMS_ITS | Clinical Summary ---
Author Organization [facility] Address [address] [place] [address] Care Team Providers Care Clerical Car Checker Name Role Phone Unavailable Primary Care Provider Unavailabl e Source Comments Patient records contain information from all sites at [facility]. For routine questions regarding patient records, call [phone] during business hours, M-F 8:00 AM - 5:00 PM Central Time. Record requests for emergency care only can be directed to [phone] at any time.[facility] Allergies Active Allergy Reactions Criticality Noted Date [...] History 06/16/2016 Atherosclerotic Heart Diseas e Of [place] Coronary Artery Without Angina Pectoris 08/28/2005 Hyperlipidemia [...] to 3 night=14 to 21 per week [facility] Utilities Answer Date Recorded In the past 12 months has e [employer] gas, oil, or water company threatened to [...] living situation today? I have a [facility] place to live 09/08/2023 Education Answer Date Recorded What is the highest level of school you have completed or the highest degree you have received? 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 [address] [place] [phone] Health Maintenance Due Date Last Done Comments [...] this topic Medical Devices Implanted Type Area Professor Of Chemistry Device Identifier Shelf Expiration Date Model / Serial / Lot [facility] Planot Endo 235 - [id number] Implanted:Qty: 1 on 08/27/2020 by José Miguel Gutierrez M.D. at [facility] Hardware e.g. pins/screw s/rods [employer] [id number] 05/19/2023 [id number] Clp [facility] Endo 235 - [id number] Implanted:Qty: 1 on 08/27/2020 by José Miguel Gutierrez M.D. at [facility] Hardware e.g. pins/screw s/rods [employer] [id number] 02/22/2023 [id number] 6 [facility] 235 - [id number] Implanted:Qty: 1 on 08/27/2020 by José Miguel Gutierrez M.D. at [facility] Hardware e.g. pins/screw s/rods [employer] [id number] 02/22/2023 [id number] 6 J J Sig Fem Lugged Sz 5.0 Rt - [place] [id number] Implanted:Qty: 1 on 06/18/2006 Knee Implant Other/Legacy - See Implant Description [employer] Description:Device Manufactu rer - [employer]. Body Location - Other. Right. Device Status Text - [id number] [id number]. Depuy-Tib Tray Mod Cement Cocr Sz4 - [place] [id number] Implanted:Qty: 1 on 06/18/2006 Knee Implant Other/Legacy - See Implant Description [employer] Description:Device Manufactu rer - [employer]. Body Location - Other. Right. Device Status Text - KNEE [id number]. J J Patella Rev Round 35m - [place] [id number] Implanted:Qty: 1 on 06/18/2006 Knee Implant Other/Legacy - See Implant Description [employer] Description:Device Manufactu rer - [employer]. Body Location - Other. Right. Device Status Text - KNEE [id number]. Depuy-Insert Stabilized Sz 4 15mm - [place] [id number] Implanted:Qty: 1 on 06/18/2006 Knee Implant Other/Legacy - See Implant Description [employer] Description:Device Manufactu rer - [employer]. Body Location - Other. Right. Device Status Text - KNEE [id number]. Cement Bone Large - [place] [id number] Implanted:Qty: 2 on 06/18/2006 Misc Other Selina Description:Device Manufactu rer - Pierre Holden.. Device Status Text - [id number]-2840. Conversions [...] bowel preparation was evaluated using the BBPS ([place] Bowel Preparation Scale) with scores of: Right [...] CDT) HCV Ab Screen, S Negative Negative [facility] Comment:Gfbfiy-ma-vdyvsz rat io is <1.00. 08/11/2016 6:53 AM CDT 08/11/2016 6:53 AM CDT Anjelica Urban APRN, C.N.P. LAB MICROBIOLOGY - BLOOD ORDERABLES Final Result [facility] [address] [place] [address], [facility] from Last 3 Months or Most Recently Relevant to Health Maintenance Insurance MEDICARE [facility] Advance Directives For more information, please contact: [phone] Documents on File Type Date Recorded Patient Nurses' Association Executive Director Expl anation Advance Directives 12/08/2019 3:15 PM [...]
--- NOTE | 2025-02-12 11:02 | ED.GENADULT ---
HPI - General Adult General Date Seen: 02/12/25 Chief complaint: GI Bleed Stated complaint: told to come in by [facility] Time Seen by Provider: 02/12/25 10:06 Source: patient Mode of arrival: ambulatory Limitations: no limitations History of Present Illness HPI narrative: Patient is a 74-year-old male presenting to the emergency department for lightheadedness. He states the past few days he has been feeling lightheaded that is worse when he is up and moving around. He has not had a syncopal episode yet. 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 Was discharged on 02/06/2025. Was seen in this emergency department on 02/07/2025 is diagnosed with a large superficial thrombophlebitis. Due to the size of it he was started on Xarelto. Since then he has also noticed a couple episodes of blood in his stool. States the blood is mostly red streaks and has not noticed any clots. Has had issues with a GI bleed in the past that resolved on its own. He believes at that time was related to hemorrhoids does not know for sure. Denies any rectal pain at this time. States he shortness of breath but that is chronic and has not changed recently. Denies any chest pain. Denies abdominal pain, vision changes, headache, weakness, numbness, dysuria. No other concerns noted at this time. States he initially was going to go to his clinic for his lightheadedness but was told to come to the emergency department. Related Data Home Medications ?Medication ?Instructions ?Recorded ?Confirmed hydrochlorothiazide 25 mg tablet 25 mg PO DAILY 01/13/22 02/07/25 nitroglycerin 0.4 mg sublingual 0.4 mg buccal Q5M PRN 01/13/22 02/07/25 tablet omeprazole 20 mg capsule,delayed 20 mg PO DAILY 01/13/22 02/07/25 release rosuvastatin 40 mg tablet 40 mg PO DAILY 01/13/22 02/07/25 vardenafil 20 mg tablet 20 mg PO DAILY PRN 01/13/22 01/05/24 clopidogrel 75 mg tablet 75 mg PO QAM 01/05/24 02/07/25 Held on 02/07/25. Instructions: Resume on 03/01/25. Hold for 3 weeks while you are taking the Xarelto instead. Continue taking your aspirin. lisinopril 10 mg tablet 10 mg PO DAILY 01/05/24 02/07/25 tamsulosin 0.4 mg capsule 0.8 mg PO DAILY 01/05/24 02/07/25 ezetimibe 10 mg tablet 10 mg PO DAILY 02/07/25 02/07/25 gabapentin 100 mg capsule mg PO 02/07/25 oxycodone 5 mg tablet PO 02/07/25 Previous Rx's ?Medication ?Instructions ?Recorded rivaroxaban 20 mg tablet (Xarelto) 20 mg PO DAILY #20 tabs 02/07/25 Allergies Allergy/AdvReac Type Severity Reaction Status Date / Time No Known Drug Allergies Allergy Verified 01/05/24 16:20 Review of Systems Status of ROS: Reports: 10 or more systems reviewed and unremarkable except as noted in History and below [facility] Social History Smoking Status: Never smoker Do you use any of these nicotine containing products: None Second hand tobacco smoke exposure: No How often do you have a drink containing alcohol: 4 or more times a week How many standard drinks containing alcohol do you have on a typical day: 1 or 2 How often do you have six or more drinks on one occasion: Never AUDIT-C Alcohol total score: 4 Non-prescribed substance use: denies use service: No Exam Narrative: Exam Narrative: Const: Well-nourished, Well-developed, in mild distress Eyes: PERRL, no conjunctival injection, and symmetrical lids HENT: Atraumatic external nose and ears. Moist mucous membranes. Neck: Symmetric, trachea midline, No thyromegaly. CVS: RRR, No murmurs or gallops. Peripheral pulses 2+ and equal in all extremities RESP: Unlabored respiratory effort. Clear to auscultation bilaterally. GI: Nontender/Nondistended, No rebound or guarding. MSK:Extremities w/o deformity, Normal Active ROM Skin: Warm, Dry. No rashes or lesions. Neuro: Normal Muscle tone, No focal neurological deficits. Psych: Awake, Alert, & Oriented x3. Appropriate mood and affect. Const: Vital Signs, click to edit/add: Vital Signs - 24 hr 02/12/25 10:00 02/12/25 10:15 02/12/25 10:15 Temperature 97.4 F L Pulse Rate Pulse Rate [Pulse Oximeter] 77 Respiratory Rate 20 Blood Pressure Blood Pressure [Le ft Upper Arm] 102/50 L Blood Pressure [or thostatic lying] 110/58 L Blood Pressure [or thostatic sitting] 100/56 L Blood Pressure [or thostatic standing ] 113/55 L Pulse Oximetry 97 98 Oxygen Delivery Me thod Room Air 02/12/25 10:30 02/12/25 11:00 02/12/25 11:15 Temperature Pulse Rate 86 72 72 Pulse Rate [Pulse Oximeter] Respiratory Rate 16 16 14 Blood Pressure Blood Pressure [Le ft Upper Arm] Blood Pressure [or thostatic lying] Blood Pressure [or thostatic sitting] Blood Pressure [or thostatic standing ] Pulse Oximetry 97 97 98 Oxygen Delivery Me thod 02/12/25 11:55 02/12/25 12:02 02/12/25 12:32 Temperature Pulse Rate 78 71 70 Pulse Rate [Pulse Oximeter] Respiratory Rate 12 12 Blood Pressure 112/58 L 112/55 L 117/57 L Blood Pressure [Le ft Upper Arm] Blood Pressure [or thostatic lying] Blood Pressure [or thostatic sitting] Blood Pressure [or thostatic standing ] Pulse Oximetry 97 96 90 Oxygen Delivery Me thod 02/12/25 12:45 02/12/25 12:56 02/12/25 13:11 Temperature 97.4 F L Pulse Rate 77 74 Pulse Rate [Pulse Oximeter] Respiratory Rate 16 16 Blood Pressure 113/49 L Blood Pressure [Le ft Upper Arm] Blood Pressure [or thostatic lying] 117/57 L Blood Pressure [or thostatic sitting] 86/63 L Blood Pressure [or thostatic standing ] Pulse Oximetry 99 97 Oxygen Delivery Me thod Room Air 02/12/25 13:28 Temperature 97.0 F L Pulse Rate 70 Pulse Rate [Pulse Oximeter] Respiratory Rate 16 Blood Pressure 113/55 L Blood Pressure [Le ft Upper Arm] Blood Pressure [or thostatic lying] Blood Pressure [or thostatic sitting] Blood Pressure [or thostatic standing ] Pulse Oximetry 98 Oxygen Delivery Me thod Room Air Course Vital Signs Vital signs: Initial Vital Signs Temperature 97.4 F L 02/12/25 10:00 Temperature Source Temporal Artery Scan 02/12/25 10:00 Pulse Rate 77 02/12/25 10:00 Respiratory Rate 20 10/20/25 10:00 Blood Pressure 102/50 L 02/12/25 10:00 Blood Pressure Mean 67 L 02/12/25 10:00 Blood Pressure Position Supine 02/12/25 10:00 Pulse Oximetry 97 02/12/25 10:00 Oxygen Delivery Method Room Air 02/12/25 10:00 Vital Signs Temperature 97.4 F L 02/12/25 10:00 Pulse Rate 77 02/12/25 10:00 Respiratory Rate 20 02/12/25 10:00 Blood Pressure 102/50 L 02/12/25 10:00 Pulse Oximetry 97 02/12/25 10:00 Oxygen Delivery Method Room Air 02/12/25 10:00 Temperature 97.0 F L 02/12/25 13:28 Pulse Rate 70 02/12/25 13:28 Respiratory Rate 16 02/12/25 13:28 Blood Pressure 113/55 L 02/12/25 13:28 Pulse Oximetry 98 02/12/25 13:28 Oxygen Delivery Method Room Air 02/12/25 13:28 Medical Decision Making [facility] Narrative Medical decision making narrative: Patient is a 74-year-old male presenting to the emergency department for lightheadedness. Differential at this time fluids anemia, electrolyte abnormalities, orthostatic hypotension, cardiac abnormalities. Will do workup including CBC, BMP, type and screen, coags, EKG, troponin. Since he is having a GI bleed will also do CT a GI bleed protocol. Lab work returned showing hemoglobin of 6.9. His hemoglobin was 9.9 just a few days ago. Checking his chart in [facility] it does seem his hemoglobin baseline is around 9.9. Due to that we will transfuse a unit of packed red blood cells. His INR has gone up in the past 5 days. Sodium is slightly low at 130 new 1. EKG and troponin showed no concerning abnormalities. Orthostatic blood pressure showed no concerning findings. CTA reviewed by myself and the radiologist shows no acute concerning findings. There is incompletely imaged low-attenuation fluid collection in the lower extremities nares crafts are. These were previously known about. Is unclear if his hemoglobin drops all from the GI bleed but does sound like it is relatively minor GI bleeding. He did need quite a bit of blood transfusions while at [facility] for his procedures. Due to his complex away on the blood thinner with the GI bleed and anemia I will have him transferred to [facility]. I spoke to Dr. Herrera who accepted him for admission. He is safe for transfer. He is agreeable to this plan. Lab Data Labs: Lab Results 02/12/25 02/12/25 02/12/25 Range/Units 09:55 09:59 10:06 WBC 9.60 (4.50-11.00) K/uL RBC 2.21 L (4.30-5.90) m/uL Hgb 6.9 L* (13.5-17.5) gm/dL Hct 20.6 L (37.0-53.0) % MCV 93 (80-100) fL MCH 31 (26-34) pg MCHC 34 (32-36) gm/dL RDW Coeff of Kyle 16.1 H (11.5-15.5) % Plt Count 238 (140-440) K/uL Neut % (Auto) 81.8 H (42.0-72.0) % Lymph % (Auto) 8.1 L (20-44) % Delta % (Auto) 6.8 (0.0-11.0) % Eos % (Auto) 2.6 (0.0-7.0) % Baso % (Auto) 0.3 (0.0-3.0) % Neut # (Auto) 7.90 H (1.7-7.0) K/uL Lymph # (Auto) 0.80 L (0.90-2.90) K/uL Delta # (Auto) 0.70 (0.00-0.90) K/UL Eos # (Auto) 0.25 (0.00-0.50) K/uL Baso # (Auto) 0.03 (0.00-0.30) K/uL Abs Immat Gran (auto) 0.04 (0.00-0.30) K/uL Imm/Tot Granulo (auto) 0.4 % INR 1.83 H (0.91-1.10) APTT 35 H (23-33) Seconds Sodium 131 L (135-149) mmol/L Potassium 4.2 (3.6-5.1) mmol/L Chloride 101 (96-114) mmol/L Carbon Dioxide 23 (20-32) mmol/L Anion Gap 7 (7-15) mEq/L BUN 24 (7-30) mg/dL Creatinine 0.9 (0.5-1.5) mg/dL Estimated Creat Clear 60.80 Estimated GFR 89 ml/min Glucose 119 H (60-115) mg/dL Lactate 1.6 (0.5-1.9) mmol/L Calcium 8.6 (8.4-10.6) mg/dL Lab Acknowledgement POC Troponin I 0.00 L (0.01-0.04) ng/ml Blood Type O Positive Antibody Screen NEGATIVE Crossmatch (AHG) See Detail 02/12/25 Range/Units 11:02 WBC (4.50-11.00) K/uL RBC (4.30-5.90) m/uL Hgb (13.5-17.5) gm/dL Hct (37.0-53.0) % MCV (80-100) fL MCH (26-34) pg MCHC (32-36) gm/dL RDW Coeff of Kyle (11.5-15.5) % Plt Count (140-440) K/uL Neut % (Auto) (42.0-72.0) % Lymph % (Auto) (20-44) % Delta % (Auto) (0.0-11.0) % Eos % (Auto) (0.0-7.0) % Baso % (Auto) (0.0-3.0) % Neut # (Auto) (1.7-7.0) K/uL Lymph # (Auto) (0.90-2.90) K/uL Delta # (Auto) (0.00-0.90) K/UL Eos # (Auto) (0.00-0.50) K/uL Baso # (Auto) (0.00-0.30) K/uL Abs Immat Gran (auto) (0.00-0.30) K/uL Imm/Tot Granulo (auto) % INR (0.91-1.10) APTT (23-33) Seconds Sodium (135-149) mmol/L Potassium (3.6-5.1) mmol/L Chloride (96-114) mmol/L Carbon Dioxide (20-32) mmol/L Anion Gap (7-15) mEq/L BUN (7-30) mg/dL Creatinine (0.5-1.5) mg/dL Estimated Creat Clear Estimated GFR ml/min Glucose (60-115) mg/dL Lactate (0.5-1.9) mmol/L Calcium (8.4-10.6) mg/dL Lab Acknowledgement Test Added POC Troponin I (0.01-0.04) ng/ml Blood Type Antibody Screen Crossmatch (AHG) Imaging Data CTA abdomen and pelvis: Attestation: I have reviewed the pertinent imaging results. Radiologist's impression: 1. No gastrointestinal intraluminal extravasation of intravenous contrast to indicate active bleeding. Please note that CT is insensitive for detection of mucosal lesions of the gastrointestinal tract. Consider nonemergent Gastroenterology referral for consideration of endoscopy for further evaluation, if clinically appropriate. 2. Sigmoid diverticulosis without evidence of acute diverticulitis. 3. 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 Incompletely imaged bilateral proximal superficial femoral arterial bypass grafts associated with low-attenuation perianastomotic circumscribed fluid collections, left larger than right (22 mm compared to 13 mm; series 10; images 229, 230), and surgical clips. No associated enhancement indicates pseudoaneurysms or abscess. Superficial subcutaneous fat stranding suggest recent prior intervention. Correlate with the patient`s clinical history. 4. Additional findings as above. Please note that all CT scans at this facility use dose modulation, iterative reconstruction, and/or weight-based dosing when appropriate to reduce radiation dose to as low as reasonably achievable. Dictated by Shine Cunha MD @ 02/12/2025 12:07:41 PM ECG Data Attestation: I personally reviewed and interpreted this ECG as follows: Prior ECG tracings: not available for review Interpretation: Normal sinus rhythm with a rate of 74 beats per minute, first-degree AV block, normal QRS, normal QTC, no ST or T-wave abnormalities. Discharge Plan Discharge Clinical Impression: Anemia Qualifiers: Anemia type: unspecified type Qualified Code(s): D64.9 - Anemia, unspecified Superficial thrombophlebitis Qualifiers: Superficial thrombophlebitis-Involved body area: lower extremity Laterality: right Qualified Code(s): I80.01 - Phlebitis and thrombophlebitis of superficial vessels of right lower extremity GI bleed Qualifiers: GI bleed type/associated pathology: unspecified gastrointestinal hemorrhage type Qualified Code(s): K92.2 - Gastrointestinal hemorrhage, unspecified Patient Disposition: Jose Mendoza Condition: Stable Prescriptions: No Action clopidogrel 75 mg tablet 75 mg PO QAM tamsulosin 0.4 mg capsule 0.8 mg PO DAILY lisinopril 10 mg tablet 10 mg PO DAILY hydrochlorothiazide 25 mg tablet 25 mg PO DAILY Patient Comments: TAKE 1 TABLET BY MOUTH EVERY DAY nitroglycerin 0.4 mg tablet, sublingual 0.4 mg buccal Q5M PRN Patient Comments: PLACE 1 TABLET (0.4 MG) UNDER THE TONGUE EVERY 5 MINUTES IF NEEDED FOR CHEST PAIN. omeprazole 20 mg capsule,delayed release(DR/EC) 20 mg PO DAILY Patient Comments: TAKE 1 CAPSULE BY MOUTH ONCE DAILY BEFORE A MEAL. rosuvastatin 40 mg tablet 40 mg PO DAILY Patient Comments: TAKE 1 TABLET BY MOUTH EVERYDAY AT BEDTIME vardenafil 20 mg tablet 20 mg PO DAILY PRN Patient Comments: TAKE 1 TABLET BY MOUTH ONCE DAILY IF NEEDED FOR ERECTILE DYSFUNCTION. gabapentin 100 mg capsule PO ezetimibe 10 mg tablet 10 mg PO DAILY oxycodone 5 mg tablet PO Xarelto 20 mg tablet 20 mg PO DAILY Qty: 20 0RF Rx Instructions: must administer with evening meal Stand Al[facility]
[2025-02-12 11:19] LABS: INR 1.83 (0.91-1.10); Prothrombin Time 22.2 Seconds
== END 2025-02-12 16:49 | disposition short-term general hospital (02) ==
PROVIDERS: Emergency Provider Student in an Organized Health Care Education/Training Program; PCP Student in an Organized Health Care Education/Training Program
DX: D64.9 Anemia, unspecified (principal); I80.01 Phlebitis and thrombophlebitis of superficial vessels of right lower extremity; K92.2 Gastrointestinal hemorrhage, unspecified
CPT/HCPCS: 36415; 36430; 74174; 80048; 83605; 84484; 85025; 85610; 85730; 86850; 86900; 86901; 86922; 93005; 94761; 99285; P9016; Q9967

== ENCOUNTER 2025-02-12 16:40 | Outpatient (CLI) | payer MEDICARE, BC, SELFPAY | END 2025-02-12 16:41 | disposition home or self-care (01) | LOC: AMB 02-13 09:20 | PROVIDERS: PCP Student in an Organized Health Care Education/Training Program; Visit Provider Family Medicine | DX: D64.9 Anemia, unspecified (principal); I80.01 Phlebitis and thrombophlebitis of superficial vessels of right lower extremity; K92.2 Gastrointestinal hemorrhage, unspecified | CPT/HCPCS: A0425; A0429 ==

== ENCOUNTER 2025-03-10 08:08 | Emergency (ER) | payer MEDICARE, BC, SELFPAY ==
[2025-03-10] VITALS (15 sets, daily range): BP systolic 106–125; BP diastolic 52–92; PULSE 60–76; RESP 14–18; TEMP 36.1–36.4; O2SAT 97–100
--- NOTE | 2025-03-10 09:07 | ED.GENADULT ---
HPI - General Adult General Chief complaint: Unspecified Complaint, Adult Stated complaint: low hemoglobin - received call from [facility] Time Seen by Provider: 03/10/25 08:41 History of Present Illness HPI narrative: This 74-year-old male was called by online a clinic this morning and instructed to come to the emergency department because of low hemoglobin. His hemoglobin was checked yesterday and returned at 6.2. The patient has had anemia in the past month or so as a consequence of being on Xarelto. He had a endarterectomy surgery in the groin bilaterally and the plan is to stay on Xarelto for a couple months to prevent clot formation. Meanwhile he has developed a GI bleed. He was seen here in the emergency department couple weeks ago and did note some bright red blood in the toilet at that time. He was transferred to [facility] where he received a unit of blood and had a colonoscopy. The colonoscopy did identify a small bleed that was cauterized. The patient states that he no longer has bright red blood in the toilet but states that it does seem little bit dark. He states that he feels rather normal but does get short of breath and lightheaded with enough exertion. Related Data Home Medications ?Medication ?Instructions ?Recorded ?Confirmed hydrochlorothiazide 25 mg tablet 25 mg PO DAILY 01/13/22 02/07/25 nitroglycerin 0.4 mg sublingual 0.4 mg buccal Q5M PRN 01/13/22 02/07/25 tablet omeprazole 20 mg capsule,delayed 20 mg PO DAILY 01/13/22 02/07/25 release rosuvastatin 40 mg tablet 40 mg PO DAILY 01/13/22 02/07/25 vardenafil 20 mg tablet 20 mg PO DAILY PRN 01/13/22 01/05/24 clopidogrel 75 mg tablet 75 mg PO QAM 01/05/24 02/07/25 Held on 02/07/25. Instructions: Resume on 03/01/25. Hold for 3 weeks while you are taking the Xarelto instead. Continue taking your aspirin. lisinopril 10 mg tablet 10 mg PO DAILY 01/05/24 02/07/25 tamsulosin 0.4 mg capsule 0.8 mg PO DAILY 01/05/24 02/07/25 ezetimibe 10 mg tablet 10 mg PO DAILY 02/07/25 02/07/25 gabapentin 100 mg capsule mg PO 02/07/25 oxycodone 5 mg tablet PO 02/07/25 Previous Rx's ?Medication ?Instructions ?Recorded rivaroxaban 20 mg tablet (Xarelto) 20 mg PO DAILY #20 tabs 02/07/25 Allergies Allergy/AdvReac Type Severity Reaction Status Date / Time No Known Drug Allergies Allergy Verified 03/10/25 08:17 Review of Systems Status of ROS: Reports: 10 or more systems reviewed and unremarkable except as noted in History and below Narrative: Constitutional: No fevers, no weight gain or loss. Eyes: No discharge. No vision changes. HENT: No congestion, no sore throat, no ear pain. Cardiovascular: No chest pain, no palpitations. Respiratory: No wheezes, no cough. Some shortness of breath with exertion. Gastrointestinal: No abdominal pain, no vomiting, no diarrhea. Genitourinary: No dysuria, no hematuria. Musculoskeletal: Normal range of motion. Skin: No rashes, no pruritis. Neurological: No weakness, sensory change, speech change. Endo/Heme/Allergies: No bruising or bleeding. No polydipsia. Pysch: no suicidality, no anxiety, no insomnia. All other systems reviewed and are negative. [facility] Social History Smoking Status: Never smoker Do you use any of these nicotine containing products: None Second hand tobacco smoke exposure: No How often do you have a drink containing alcohol: 4 or more times a week How many standard drinks containing alcohol do you have on a typical day: 1 or 2 How often do you have six or more drinks on one occasion: Never AUDIT-C Alcohol total score: 4 Non-prescribed substance use: denies use service: No Exam Narrative: Exam Narrative: Constitutional: Well-developed, well-nourished, no acute distress. HEENT: Normocephalic, atraumatic. Neck: Normal range of motion. Nontender. Supple. Heart: Intact distal pulses. Lungs: No chest discomfort. No wheezes, rhonchi, or rales. Abdomen: Nontender. Back: Normal range of motion. Extremities: Normal range of motion. No injury. Skin: Intact. No rash. Warm. No erythema or pallor. Neurologic: No altered sensation. No weakness. Alert and oriented. Psychiatric: No suicidality. No anxiety or depression. No insomnia. Nursing notes and vitals signs are reviewed. Const: Vital Signs, click to edit/add: Vital Signs - 24 hr 03/10/25 08:19 Temperature 97.4 F L Pulse Rate [Pulse Oximeter] 76 Respiratory Rate 18 Blood Pressure [Ri ght Upper Arm] 120/52 L Pulse Oximetry 100 Oxygen Delivery Me thod Room Air Course Vital Signs Vital signs: Initial Vital Signs Temperature 97.4 F L 03/10/25 08:19 Temperature Source Temporal Artery Scan 03/10/25 08:19 Pulse Rate 76 03/10/25 08:19 Respiratory Rate 18 03/10/25 08:19 Blood Pressure 120/52 L 03/10/25 08:19 Blood Pressure Mean 74 03/10/25 08:19 Pulse Oximetry 100 03/10/25 08:19 Oxygen Delivery Method Room Air 03/10/25 08:19 Vital Signs Temperature 97.4 F L 03/10/25 08:19 Pulse Rate 76 03/10/25 08:19 Respiratory Rate 18 03/10/25 08:19 Blood Pressure 120/52 L 03/10/25 08:19 Pulse Oximetry 100 03/10/25 08:19 Oxygen Delivery Method Room Air 03/10/25 08:19 Temperature 97.4 F L 03/10/25 08:19 Pulse Rate 76 03/10/25 08:19 Respiratory Rate 18 03/10/25 08:19 Blood Pressure 120/52 L 03/10/25 08:19 Pulse Oximetry 100 03/10/25 08:19 Oxygen Delivery Method Room Air 03/10/25 08:19 Medical Decision Making MDM Narrative Medical decision making narrative: This patient comes in with report of hemoglobin at 6.2. He would benefit from a transfusion of blood. The patient states that he has a plan to follow-up with his primary physician and also reports that the surgeon wants him to stay on Xarelto for 2 months after surgery. This anticoagulant is likely the biggest contributor to his anemia. He has had a colonoscopy. He states that he feels well and prefers to return home after receiving blood transfusion. I did speak with the hospitalist on-call and arrangements are made for transfusion here likely outside of the emergency department but in this facility yet not and admission into the hospital. I did place an order for 2 units of packed red blood cells. The patient can be discharged home after transfusion is complete. Lab Data Labs: Lab Results 03/10/25 Range/Units 09:24 Hgb 6.2 L* (13.5-17.5) gm/dL Discharge Plan Discharge Clinical Impression: Anemia Patient Disposition: Home, Self-Care Condition: Improved Additional Instructions: Follow-up with clinic for recheck of hemoglobin and ongoing management. Return if worsening symptoms happen. Prescriptions: No Action clopidogrel 75 mg tablet 75 mg PO QAM tamsulosin 0.4 mg capsule 0.8 mg PO DAILY lisinopril 10 mg tablet 10 mg PO DAILY hydrochlorothiazide 25 mg tablet 25 mg PO DAILY Patient Comments: TAKE 1 TABLET BY MOUTH EVERY DAY nitroglycerin 0.4 mg tablet, sublingual 0.4 mg buccal Q5M PRN Patient Comments: PLACE 1 TABLET (0.4 MG) UNDER THE TONGUE EVERY 5 MINUTES IF NEEDED FOR CHEST PAIN. omeprazole 20 mg capsule,delayed release(DR/EC) 20 mg PO DAILY Patient Comments: TAKE 1 CAPSULE BY MOUTH ONCE DAILY BEFORE A MEAL. rosuvastatin 40 mg tablet 40 mg PO DAILY Patient Comments: TAKE 1 TABLET BY MOUTH EVERYDAY AT BEDTIME vardenafil 20 mg tablet 20 mg PO DAILY PRN Patient Comments: TAKE 1 TABLET BY MOUTH ONCE DAILY IF NEEDED FOR ERECTILE DYSFUNCTION. gabapentin 100 mg capsule PO ezetimibe 10 mg tablet 10 mg PO DAILY oxycodone 5 mg tablet PO Xarelto 20 mg tablet 20 mg PO DAILY Qty: 20 0RF Rx Instructions: must administer with evening meal Follow Up/Referrals: Anette Mancuso PA-C [Primary Care Provider, Family Practice] Stand Alone Forms: [facility] Info Instructions
[2025-03-10 09:35] LABS: Hemoglobin* 6.2 gm/dL (13.5-17.5)
[2025-03-10] MEDS: FUROSEMIDE 10 MG/ML inj 20 MG IV (13:02)
[2025-03-10] MEDS: 0.9 % SODIUM CHLORIDE 500 ML 250 ML IV (13:02)
== END 2025-03-10 16:49 | disposition home or self-care (01) ==
PROVIDERS: Emergency Provider Emergency Medicine Emergency Medical Services; PCP Student in an Organized Health Care Education/Training Program
DX: D64.9 Anemia, unspecified (principal)
CPT/HCPCS: 36415; 36430; 85018; 86850; 86900; 86901; 86922; 96374; 99284; J1938; J7030; P9016